=== PATIENT | female | born 1960 | race Caucasian/White ===

== ENCOUNTER → 2019-10-21 14:34 | Outpatient (BNVA) | payer SELFPAY | PROVIDERS: Visit Provider Nurse Practitioner | DX: M54.9 Dorsalgia, unspecified (principal); E24.9 Cushing's syndrome, unspecified; Z79.891 Long term (current) use of opiate analgesic | CPT/HCPCS: 99213 ==

== ENCOUNTER → 2020-04-18 16:52 | Outpatient (BNVA) | payer SELFPAY | PROVIDERS: PCP Nurse Practitioner Family; Visit Provider Nurse Practitioner Family | DX: E11.65 Type 2 diabetes mellitus with hyperglycemia (principal) | CPT/HCPCS: 80053; 80061; 83036; 85025 ==

== ENCOUNTER → 2020-04-27 12:55 | Outpatient (BNVA) | payer SELFPAY | PROVIDERS: PCP Nurse Practitioner Family; Visit Provider Anesthesiology | DX: M54.41 Lumbago with sciatica, right side (principal); M54.42 Lumbago with sciatica, left side; Z79.891 Long term (current) use of opiate analgesic | CPT/HCPCS: 99213; 99214 ==

== ENCOUNTER → 2020-07-25 12:53 | Outpatient (BNVA) | payer SELFPAY | PROVIDERS: PCP Nurse Practitioner Family; Visit Provider Anesthesiology | DX: M54.42 Lumbago with sciatica, left side (principal); M54.41 Lumbago with sciatica, right side; Z79.891 Long term (current) use of opiate analgesic | CPT/HCPCS: 99212; 99214 ==

== ENCOUNTER → 2020-10-19 13:44 | Outpatient (BNVA) | payer SELFPAY | PROVIDERS: PCP Nurse Practitioner Family; Visit Provider Anesthesiology | DX: G89.29 Other chronic pain (principal); M54.5 Low back pain; Z79.891 Long term (current) use of opiate analgesic | CPT/HCPCS: 99213 ==

== ENCOUNTER → 2020-11-05 15:37 | Outpatient (BNVA) | payer SELFPAY | PROVIDERS: PCP Nurse Practitioner Family; Visit Provider Nurse Practitioner Family | DX: E11.65 Type 2 diabetes mellitus with hyperglycemia (principal); I10 Essential (primary) hypertension | CPT/HCPCS: 80053; 80061; 83036; 85025 ==

== ENCOUNTER → 2021-01-11 13:33 | Outpatient (BNVA) | payer SELFPAY | PROVIDERS: PCP Nurse Practitioner Family; Visit Provider Nurse Practitioner | DX: G89.29 Other chronic pain (principal); M54.5 Low back pain; G47.01 Insomnia due to medical condition; E24.9 Cushing's syndrome, unspecified; Z98.890 Other specified postprocedural states; Z85.820 Personal history of malignant melanoma of skin; Z79.891 Long term (current) use of opiate analgesic | CPT/HCPCS: 99213; 99214 ==

== ENCOUNTER → 2021-04-16 13:46 | Outpatient (BNVA) | payer SELFPAY | PROVIDERS: PCP Nurse Practitioner Family; Visit Provider Anesthesiology | DX: G89.29 Other chronic pain (principal); M54.5 Low back pain; Z79.891 Long term (current) use of opiate analgesic | CPT/HCPCS: 99213 ==

== ENCOUNTER → 2021-05-13 16:09 | Outpatient (BNVA) | payer SELFPAY | PROVIDERS: PCP Nurse Practitioner Family; Visit Provider Nurse Practitioner Family | DX: E11.65 Type 2 diabetes mellitus with hyperglycemia (principal); I10 Essential (primary) hypertension | CPT/HCPCS: 80053; 80061; 83036; 85025 ==

== ENCOUNTER → 2021-07-24 14:19 | Outpatient (BNVA) | payer SELFPAY | PROVIDERS: PCP Nurse Practitioner Family; Visit Provider Anesthesiology | DX: G89.29 Other chronic pain (principal); M54.50 Low back pain, unspecified; Z79.891 Long term (current) use of opiate analgesic | CPT/HCPCS: 99213 ==

== ENCOUNTER → 2021-12-16 17:10 | Outpatient (BNVA) | payer SELFPAY | PROVIDERS: PCP Nurse Practitioner Family; Visit Provider Nurse Practitioner Family | DX: E11.65 Type 2 diabetes mellitus with hyperglycemia (principal); I10 Essential (primary) hypertension; G89.29 Other chronic pain | CPT/HCPCS: 80053; 80061; 83036; 85025 ==

== ENCOUNTER → 2022-04-01 14:29 | Outpatient (BNVA) | payer SELFPAY | PROVIDERS: PCP Nurse Practitioner Family; Visit Provider Family Medicine | DX: Z79.891 Long term (current) use of opiate analgesic (principal) | CPT/HCPCS: 80307 ==

== ENCOUNTER 2023-03-18 21:00 | Inpatient (IN) | payer MEDICAID, SELFPAY ==
[2023-03-18 21:12] VITALS: BP 164/107; PULSE 112; RESP 20; TEMP 36.6; O2SAT 98; BMI 38.2
--- NOTE | 2023-03-18 21:14 | W.ED.BACK ---
HPI - Back Pain/Injury General: Chief Complaint: Back Pain/Injury Stated Complaint: Tail Bone Pain Time Seen by Provider: 03/18/23 21:02 History of Present Illness: Ms. Ribera is a 62-year-old lady with complex past medical history presented the emergency department for back pain and generalized worsening. She reports a complex history of back injury and previously followed with pain management however has not reestablished with a pain management physician retired. She essentially has been toughing it out with increasing pain. She notes bilateral radiation of her pain and lower extremity hyperalgia. She feels generally unwell possibly has a urine infection. She notes dry mouth and generalized weakness. Course is worsened. Intensity is moderate to severe. No other specific changes in health, exacerbating, or alleviating factors identified. Severity: moderate Exacerbating factors: movement Associated symptoms: Reports dysuria, nausea, weakness and other Review of Systems General: Reports: 10 or more systems reviewed and unremarkable except in HPI and below GI: Reports: nausea : Reports: dysuria PFSH ED PFSH: Medical History (Updated 03/22/23 @ 00:02 by ANNIKA Lozoya) Chronic low back pain [place] syndrome Diabetes mellitus Encounter for long-term opiate analgesic use GERD (gastroesophageal reflux disease) Hx of Sia disease Hyperglycemia Hyperkalemia Hyperlipidemia Hypertension Insomnia due to medical condition Low back pain of over 3 months duration Noncompliance Opioid contract exists Pseudohyponatremia Psychiatric care Radiculopathy due to lumbar intervertebral disc disorder Uncontrolled type 2 diabetes mellitus UTI (urinary tract infection) Vitamin B12 deficiency Weakness of lower extremity Surgical History (Updated 03/19/23 @ 01:55 by Ashvin Todd MD) H/O melanoma excision LLE - 2015 Hx of eye surgery right eye age 5 Hx of hysterectomy Family History Father Cancer Heart disease mother Sister Suicide Son Autism Social History (Updated 03/19/23 @ 01:56 by Ashvin Todd MD) Smoking and tobacco status: never smoked Second hand smoke exposure: No Alcohol intake: never Substance/Drug Use: never Caregiver/support person: Yes Lives independently: Yes Household members: children Housing: Apartment Marital status: Current occupational status: unemployed Current gender identity: Female Physical Exam Const: COMMON NORMALS: alert GENERAL APPEARANCE: cooperative and well developed HENMT: COMMON NORMALS: normocephalic and atraumatic HEAD & SCALP: normocephalic and atraumatic Eye: COMMON NORMALS: conjunctivae normal CONJUNCTIVA: Yes conjunctivae normal SCLERA: sclerae normal Neck/C-Spine: COMMON NORMALS: supple GENERAL: Yes trachea midline Resp: COMMON NORMALS: normal respiratory effort EFFORT & INSPECTION: Yes able to speak in complete sentences Cardio: COMMON NORMALS: regular rhythm RATE: tachycardic RHYTHM: regular rhythm GI: COMMON NORMALS: Soft to palpation PALPATION: Yes Soft to palpation and No Tenderness to palpation present (GI) Back/Pelvis: OTHER: Generalized low back pain to palpation. Extremity: GENERAL: Yes normal exam except as noted and No edema Neuro: COMMON NORMALS: moves all extremities SENSORIUM/ORIENTATION: Yes alert and No Orientation impaired Psych: COMMON NORMALS: mental status grossly normal and Normal thought process present THOUGHT PROCESS: Normal thought process present Course Vital Signs: Vital signs: Vital Signs Temperature 98.1 F 03/21/23 07:44 Pulse Rate 93 03/21/23 07:44 Respiratory Rate 16 03/21/23 07:44 Blood Pressure 145/93 03/21/23 07:44 Pulse Oximetry 97 03/21/23 07:44 Oxygen Delivery Me thod Room Air 03/21/23 07:44 MDM - Back Pain/Injury Medical Decision Making 62-year-old lady presenting with back pain and generalized illness. Exam as above. Nontoxic. Labs with mild leukocytosis, normal hemoglobin. Metabolic panel with hyponatremia and hyperglycemia without clear evidence of DKA. Possible mild UTI. CT demonstrates multilevel degenerative changes though no acute fracture. During ED course patient treated with orders for fluids, antibiotics, potassium, magnesium, insulin, analgesia. The results of ED evaluation were discussed with the patient including plan for admission due to requirement for level of care not available if discharged to prevent significant worsening/deterioration. Patient agreeable with plan. Discussed with hospitalist service who was agreeable to admit patient. Medical Records I reviewed the patient's medical records. Labs I reviewed the patient's lab results. 03/21/23 01:44 03/21/23 01:44 Radiology Impressions Lumbar Spine CT 03/18/23 21:58 IMPRESSION: 1. Mild multilevel degenerative disc and joint disease as detailed level by level above, worse at L4-L5 as outlined. 2. Mild perinephric fat stranding. 3. Vascular atherosclerosis 4. Additional miscellaneous findings as outlined above.. Lumbar Spine MRI 03/19/23 00:47 IMPRESSION: 1. Multilevel facet joint arthritis and disc disease. No high-grade central stenosis. 2. L4-5: Moderate central with bilateral subarticular recess stenosis. Mild disc encroachment contacting the traversing L5 nerve roots. 3. Mild LEFT foraminal narrowing at L1-2 and bilateral at L3-4. Laboratory Results WBC 12.2 10^3/uL (4.0-10.0) H 03/18/23 21:54 RBC 4.44 10^6/uL (4.1-5.3) 03/18/23 21:54 Hgb 13.0 g/dL (11.5-15.3) 03/18/23 21:54 Hct 39.0 % (37.0-47.0) 03/18/23 21:54 MCV 87.8 fl (81-99) 03/18/23 21:54 MCH 29.3 pg (28.0-34.0) 03/18/23 21:54 MCHC 33.3 g/dL (30.0-36.0) 03/18/23 21:54 RDW 11.9 % (12.1-15.1) L 03/18/23 21:54 Plt Count 448 10^3/cmm (130-400) H 03/18/23 21:54 MPV 9.8 fL (7.4-10.4) 03/18/23 21:54 Neut % (Auto) 76.2 % 03/18/23 21:54 Lymph % (Auto) 14.9 % 03/18/23 21:54 Starke % (Auto) 7.4 % 03/18/23 21:54 Eos % (Auto) 0.1 % 03/18/23 21:54 Baso % (Auto) 0.2 % 03/18/23 21:54 Neut # (Auto) 9.26 10^3/uL (1.8-7.7) H 03/18/23 21:54 Lymph # (Auto) 1.8 10^3/uL (0.8-4.8) 03/18/23 21:54 Starke # (Auto) 0.9 10^3/uL (0.2-0.9) 03/18/23 21:54 Eos # (Auto) 0.0 10^3/uL (0.0-0.8) 03/18/23 21:54 Baso # (Auto) 0.0 10^3/uL (0.0-0.1) 03/18/23 21:54 Nucleated RBC % (auto) 0 % 03/18/23 21:54 Nucleated RBCs # 0.0 /100WBC 03/18/23 21:54 Sodium 134 mmol/L (136-145) L 03/19/23 02:00 Potassium 4.5 mmol/L (3.5-5.1) 03/19/23 02:00 Chloride 94 mmol/L (98-107) L 03/19/23 02:00 Carbon Dioxide 25 mmol/L (22-29) 03/19/23 02:00 Anion Gap 19.5 (5-19) H 03/19/23 02:00 BUN 20 mg/dL (8-23) 03/19/23 02:00 Creatinine 0.6 mg/dL (0.5-0.9) 03/19/23 02:00 GFR Calculation 101.3 mL/min (90-130) 03/19/23 02:00 Glucose 468 mg/dL (65-115) H 03/19/23 02:00 POC Glucose 368 mg/dL (70-110) H 03/19/23 03:40 Estimat Average Glucose 344 03/18/23 21:54 Hemoglobin A1c 13.6 % (4.0-6.0) H 03/18/23 21:54 Calculated Osmolality 301 mOsm/kg (285-295) H 03/19/23 02:00 Calcium 9.8 mg/dL (8.5-10.5) 03/19/23 02:00 Iron 34 ug/dL (37-145) L 03/18/23 21:54 TIBC 200 mcg/dl 03/18/23 21:54 % Saturation 17.0 % (20-50) L 03/18/23 21:54 Unsat Iron Binding 166 ug/dL (112-347) 03/18/23 21:54 Total Bilirubin 0.3 mg/dL (0.15-1.2) 03/18/23 21:54 AST 11 U/L (0-32) 03/18/23 21:54 ALT 16 U/L (0-33) 03/18/23 21:54 Alkaline Phosphatase 148 U/L (35-105) H 03/18/23 21:54 Total Protein 7.5 g/dL (6.6-8.7) 03/18/23 21:54 Albumin 3.5 g/dL (3.5-5.2) 03/18/23 21:54 Globulin 4.0 g/dL (1.3-4.6) 03/18/23 21:54 Triglycerides 341 mg/dL (0-150) H 03/18/23 21:54 Cholesterol 249 mg/dL (0-200) H 03/18/23 21:54 LDL Cholesterol, Calc 142 mg/dL (50-129) H 03/18/23 21:54 Total VLDL Cholesterol 68 mg/dL (0-30) H 03/18/23 21:54 HDL Cholesterol 39 mg/dL (60-100) L 03/18/23 21:54 Cholesterol/HDL Ratio 6.38 mg/dL (0.0-4.40) H 03/18/23 21:54 Vitamin B12 150 pg/mL (232-1245) L 03/18/23 21:54 Folate 12.5 ng/mL (4.8-37.3) 03/18/23 21:54 Procalcitonin 0.68 ng/mL (0-0.5) H 03/18/23 21:54 TSH 0.75 uIU/mL (0.27-4.20) 03/18/23 21:54 Random Cortisol 22.96 ug/dL (2.47-19.5) H 03/18/23 21:54 Urine Color Light yellow (Yellow) 03/18/23 21:45 Urine Appearance Sl hazy (CLEAR) A 03/18/23 21:45 Urine pH 5 (5-7) 03/18/23 21:45 Ur Specific [place] 1.001 (1.005-1.030) L 03/18/23 21:45 Urine Protein Neg (Negative) 03/18/23 21:45 Urine Glucose (UA) 4+ (Normal) H 03/18/23 21:45 Urine Ketones 1+ (Negative) H 03/18/23 21:45 Urine Blood Neg (Negative) 03/18/23 21:45 Urine Nitrate Negative (Negative) 03/18/23 21:45 Urine Bilirubin Neg (Negative) 03/18/23 21:45 Urine Urobilinogen Neg mg/dL (Negative) 03/18/23 21:45 Ur Leukocyte Esterase Negative (Negative) 03/18/23 21:45 Urine RBC 0-4 /hpf (0-2) H 03/18/23 21:45 Urine WBC 5-10 /hpf (0-5) H 03/18/23 21:45 Ur Squamous Epith Cells None /hpf (0-5) 03/18/23 21:45 Amorphous Sediment Not Reportable 03/18/23 21:45 Urine Bacteria 2+ /hpf (NONE) H 03/18/23 21:45 Urine Opiates Screen Negative ng/mL (Negative) 03/18/23 21:47 Ur Barbiturates Screen Negative ng/mL (Negative) 03/18/23 21:47 Ur Phencyclidine Scrn Negative ng/mL (Negative) 03/18/23 21:47 Ur Amphetamines Screen Negative ng/mL (Negative) 03/18/23 21:47 U Benzodiazepines Scrn Negative ng/mL (Negative) 03/18/23 21:47 Urine Cocaine Screen Negative ng/mL (Negative) 03/18/23 21:47 U Marijuana (THC) Screen Negative ng/mL (Negative) 03/18/23 21:47 Serum Ketones Negative (Negative) 03/18/23 21:54 Discharge Plan Discharge Patient Disposition: Admitted As Inpatient Admit Provider: Ashvin Todd Clinical Impression: Hyperglycemia, UTI (urinary tract infection) Condition: Stable Discharge Diet: Diabetic Discharge Activity: Use walker/crutches as instructed Coding Level of Care Code ED Microfiche Duplicator for Joshua De León
--- NOTE | 2023-03-18 21:58 | CTR_ITS ---
PROCEDURE INFORMATION: Exam: CT Lumbar Spine Without Contrast Exam date and time: 03/18/2023 10:16 PM Age: 62 years old Clinical indication: Low back pain; Additional info: Lower back pain, non traumatic TECHNIQUE: Imaging protocol: Computed tomography of the lumbar spine without contrast. Radiation optimization: All CT scans at this facility use at least one of these dose optimization techniques: automated exposure control; mA and/or kV adjustment per patient size (includes targeted exams where dose is matched to clinical indication); or iterative reconstruction. REPORTING DATA: Count of CT and Cardiac NM exams in prior 12 months: This patient has received 0 known CTs and 0 known cardiac nuclear medicine studies in the 12 months prior to the current study. COMPARISON: No relevant prior studies available. RADIATION DOSE METRICS: Total DLP (mGy-cm): 1323.52 FINDINGS: Bones/joints: No acute fracture. Normal alignment. No significant neural foraminal narrowing. There are degenerative changes of the SI joints. Multilevel degenerative disc and joint disease as follows: T12-L1: Decreased disc space height and vacuum disc phenomenon. Minimal disc osteophyte complex. No high-grade spinal canal stenosis. Mild facet arthropathy. No high-grade neural foramina stenosis. L1-L2: The spinal canal and neural foramina are patent. L2-L3: Minimal disc bulge. Minimal hypertrophy of the ligamentum flavum. Minimal facet arthropathy. The spinal canal and neural foramina are patent. L4-L5: Diffuse disc bulge. Mild hypertrophy of the ligamentum flavum. Hypertrophic facet arthropathy, worse on the left. Minimal posterior epidural fat. Mild overall spinal canal stenosis. No high-grade spinal canal stenosis. Mild bilateral neural foraminal stenosis. L5-S1: Mild disc bulge. No high-grade spinal canal stenosis. Mild bilateral facet arthropathy. Suspected minimal neural foraminal narrowing. No high-grade neural foraminal stenosis. Pancreas: Suggestion of minimal atrophic changes of the pancreatic head. Adrenal glands: Minimal irregularity of the left adrenal gland. Vasculature: Atherosclerotic calcifications of the abdominal aorta and its branches. Soft tissues: Mild fat stranding adjacent to the kidneys. Findings are nonspecific. Evaluation with renal ultrasound may be considered, if clinically warranted. CT/CT lumbar spine wo con* [id number] IMPRESSION: 1. Mild multilevel degenerative disc and joint disease as detailed level by level above, worse at L4-L5 as outlined. 2. Mild perinephric fat stranding. 3. Vascular atherosclerosis 4. Additional miscellaneous findings as outlined above..
[2023-03-18] MEDS: sodium chloride 0.9% 500 ML IV (22:05)
[2023-03-18 22:11] LABS: Add Urine Microscopic? YES; Bilirubin Urine Neg (Negative); Blood Urine Neg (Negative); Glucose Urine UA 4+ (Normal); Ketones Urine 1+ (Negative); Leukocyte Esterase Urine Negative (Negative); Nitrate Urine Negative (Negative); Protein Urine Neg (Negative); Specific Gravity, Urine 1.001 (1.005-1.030); Urine Appearance SL Hazy (CLEAR); Urine Color Light yellow (Yellow); Urobilinogen Urine Neg (Negative); pH Urine 5 (5-7)
[2023-03-18 22:12] LABS: Add Urine Culture? No; Bacteria Urine 2+ /hpf; RBC Urine 0-4 /hpf (0-2)
[2023-03-18 22:14] LABS: Basophils % 0.2 %; Eosinophils % 0.1 %; Lymphocytes # 1.8 10^3/uL (0.8-4.8); Lymphocytes % 14.9 %; Mean Corpuscular HGB Conc 33.3 g/dL (30.0-36.0); Mean Corpuscular Hemoglobin 29.3 pg (28.0-34.0); Mean Corpuscular Volume 87.8 fl (81-99); Mean Platelet Volume 9.8 fL (7.4-10.4); Monocytes # 0.9 10^3/uL (0.2-0.9); Monocytes % 7.4 %; Neutrophils # 9.26 10^3/uL (1.8-7.7); Neutrophils % 76.2 %; Nucleated Red Blood Cells % 0 %; Platelet Count 448 10^3/cmm (130-400); Red Blood Count 4.44 10^6/uL (4.1-5.3); Red Cell Distribution Width 11.9 % (12.1-15.1); White Blood Count 12.2 10^3/uL (4.0-10.0)
[2023-03-18] MEDS: morphine 4 mg/mL SDV 1 mL IVP (22:33)
[2023-03-18 22:41] LABS: Alanine Aminotransferase 16 U/L (0-33); Albumin Level 3.5 g/dL (3.5-5.2); Alkaline Phosphatase 148 U/L (35-105); Anion Gap 18.2 (5-19); Aspartate Amino Transferase 11 U/L (0-32); Blood Urea Nitrogen 24 mg/dL (8-23); Calcium 10.3 mg/dL (8.5-10.5); Carbon Dioxide 26 mmol/L (22-29); Chloride 85 mmol/L (98-107); Glomerular Filtration Rate 72.7 mL/min (90-130); Potassium 5.2 mmol/L (3.5-5.1); Sodium 124 mmol/L (136-145); Total Bilirubin 0.3 mg/dL (0.15-1.2); Total Protein 7.5 g/dL (6.6-8.7)
[2023-03-18 23:02] LABS: Osmolality Calculated 311 mOsm/kg (285-295)
[2023-03-18 23:03] LABS: Glucose 976 mg/dL (65-115)
[2023-03-18] MEDS: sodium chloride 0.9% 1,000 ML 999 ML IV ×2 (23:15→23:56)
[2023-03-18 23:16] LABS: Thyroid Stimulating Hormone 0.75 uIU/mL (0.27-4.20)
[2023-03-18] MEDS: cefTRIAXone 1,000 MG in sodium chloride 0.9% (plus) 50 ML 100 MG IV (23:16)
[2023-03-18 23:27] LABS: Ketone (Acetest) Serum Negative (Negative)
[2023-03-18 23:30] VITALS: BP 193/141; PULSE 101; O2SAT 99
[2023-03-18] MEDS: insulin lispro 100 unit/1 mL 10 UNIT SUBCUT (23:59)
[2023-03-19] VITALS (19 sets, daily range): BP systolic 94–185; BP diastolic 51–128; PULSE 64–118; RESP 14–20; TEMP 37.2–37.6; O2SAT 89–99
[2023-03-19] MEDS: insulin regular-human 100 units/1 mL 10 UNIT IVP (00:01)
[2023-03-19 00:04] LABS: Iron 34 ug/dL (37-145); Total Iron Binding Capacity 200 mcg/dl; Unsaturated Iron Binding 166 ug/dL (112-347)
[2023-03-19 00:06] LABS: Amphetamines Screen Urine Negative (Negative); Barbiturates Screen Urine Negative (Negative); Benzodiazepines Screen Urine Negative (Negative); Cocaine Screen Urine Negative (Negative); Opiate Screen Urine Negative (Negative); PCP Screen Urine Negative (Negative); THC Screen Urine Negative (Negative)
[2023-03-19 00:20] LABS: Procalcitonin 0.68 ng/mL (0-0.5); Vitamin B12 150 pg/mL (232-1245)
[2023-03-19] MEDS: sodium chloride 0.9% 500 ML 999 ML IV (00:21)
--- NOTE | 2023-03-19 00:47 | MR_ITS ---
WS: [id number] MRI LUMBAR SPINE NONCONTRAST HISTORY: Lumbar stenosis with radiculopathy COMPARISON: None available. TECHNIQUE: Sagittal and axial multisequence imaging is submitted. Normal lumbar alignment with no compression fractures or marrow edema. Minimal disc desiccation throughout without narrowing. Conus terminates normally at L1-2 disc level. T12-L1: Diffuse mild annular disc bulging. No focal disc protrusion or stenosis. L1-L2: Bilateral facet joint arthritis, small amount of fluid in the facet joints. No significant davon nosis. There is very mild narrowing of the LEFT foramen. L2-L3: Mild bilateral ligamentum flavum and facet arthritis. No stenosis. L3-L4: Mild annular disc bulging with moderate ligamentum flavum and facet arthritis. Mild encroachme nt and narrowing of the subarticular recesses. Minimal narrowing of the foramina. L4-L5: Moderate annular disc bulging with marked ligamentum flavum and facet arthritis. There is disc encroachment into the subarticular recesses and central canal. Moderate central and subarticular rec ess stenosis with encroachment and contact on the traversing L5 nerve roots. Mild foraminal narrowing . L5-S1: Mild annular disc bulge with a very shallow central and RIGHT foraminal disc protrusions. Ther e is very slight disc contacting the S1 nerve roots. No foraminal stenosis. Mild facet arthritis. Paravertebral soft tissues are normal. MR/MR lumbar spine wo con* [id number] IMPRESSION: 1. Multilevel facet joint arthritis and disc disease. No high-grade central st enosis. 2. L4-5: Moderate central with bilateral subarticular recess stenosis. Mild di sc encroachment contacting the traversing L5 nerve roots. 3. Mild LEFT foraminal narrowing at L1-2 and bilateral at L3-4.
[2023-03-19 01:13] LABS: Chol HDL Ratio 6.38 mg/dL (0.0-4.40); Cholesterol 249 mg/dL (0-200); HDL Cholesterol 39 mg/dL (60-100); LDL Cholesterol Calculated 142 mg/dL (50-129); Triglycerides 341 mg/dL (0-150); VLDL Cholestrol Calculation 68 mg/dL (0-30)
[2023-03-19 01:15] LABS: Estmated Average Glucose 344; Hemoglobin A1C 13.6 % (4.0-6.0)
[2023-03-19 01:23] LABS: Cortisol Random 22.96 ug/dL (2.47-19.5)
[2023-03-19 01:33] LABS: Folate Level 12.5 ng/mL (4.8-37.3)
--- NOTE | 2023-03-19 01:50 | P.HP_ITS ---
Providers/Chief Complaint Chief Complaint: Tail Bone Pain History of Present Illness Yuri Ribera is a 62 year old female with possible history of Sia syndrome in the past, type 2 diabetes mellitus, hypertension, noncompliance, chronic back pain who has not taken any medication since March of last year was brought to the hospital today because of worsening weakness in bilateral lower limbs, back pain, pain radiating down the right leg for last 1 week. Patient seen in the ER sitting up in wheelchair with family members at bedside. Patient states she has not taken her medications since last year because she ran out of her insurance and did not have money to follow-up with physicians or medications. She has been having worsening pain so she came to the ER. She states usually she is not able to even get up from wheelchair and go to her bathroom because of weakness in her legs and pain in her right leg. Complaining of severe pain in the back not relieved by any motion. States pain get worse on minimal movement. Complaining of nausea, difficulty and painful swallowing. States nausea and difficulty swallowing started last week. Patient has not taken any of her medications for type 2 diabetes mellitus and hypertension for many months. In the ER, patient was given 500 cc of IV fluids and 1 more liter was ordered. Patient was to be started on insulin drip for blood sugar of more than 900 but did not have any anion gap. After discussion insulin drip was withheld and patient was given complete septic bolus with advised to repeat blood sugars and BMP post finishing of 3.2 L of IV fluids to decide about disposition from ER of ICU versus MedSurg floor. Patient was also given 1 dose of IV ceftriaxone. Patient was advised to be given 10 units of IV regular insulin and tenets of subcu lispro Review of Systems General: Reports: 10 or more systems reviewed and unremarkable except in HPI and below Const: Denies: fever(s), chills, body aches, change in appetite, change in weight, malaise, night sweats, diaphoresis, change in sleep pattern, daytime sleepiness or snoring Eyes: Denies: change in vision, blurry vision, photophobia, eye discomfort or eye discharge ENMT: Denies: throat pain, enlarged tonsils, hoarseness, mouth pain, oral sores, dry mouth, tinnitus, nasal congestion or post nasal drip Card: Denies: chest pain, palpitations, irregular heart rhythm, edema, swelling of feet/ankles, lightheadedness, syncope, pre-syncope, dyspnea on exertion, orthopnea, leg pain with exertion or acrocyanosis Resp: Denies: dyspnea, productive cough, non-productive cough, wheezing, stridor, pain on inspiration, change in phlegm color, hemoptysis or chest congestion GI: Denies: abdominal pain, nausea, vomiting, hematemesis, coffee ground emesis, dysphagia, heartburn, diarrhea, constipation, bloating, GI cramping, change in bowel habits, pain on defecation, hematochezia or melena : Denies: flank pain, dysuria, urinary frequency, urinary urgency, urinary hesitancy, nocturia or hematuria Musc: Denies: neck pain, back pain, extremity pain, joint pain, joint swelling, joint redness, joint stiffness or limited range of motion Neuro: Denies: headache(s), numbness in extremities, weakness in extremities, sensory changes, lack of coordination, difficulty walking, frequent falls, dizziness, vertigo, confusion, Slurred speech present, difficulty communicating thoughts or seizure-like activity Psych: Denies: anxiety, depression, mood swings, panic attacks, hopelessness or irritability Endo: Denies: polyuria, polydipsia, tired all the time, cold intolerance, excessive sweating, flushing or heat intolerance Donovan/Lymph: Denies: easy bruising or easy bleeding All/Imm: Denies: tongue swelling, facial swelling or acute wheezing Medications/Allergies Home Medications Medication Instructions Recorded Confirmed Last Taken Type sennosides 8.6 mg-docusate sodium 3 tab-cap PO .HS 10/28/19 04/11/22 Unknown History 50 mg tablet (Laxative Stool Softener With Senna) acetaminophen 500 mg tablet 500 mg PO ONCE PRN 10/04/21 04/11/22 Unknown History (Tylenol Extra Strength) atenolol 100 mg tablet See Rx Instructions .Route 02/17/22 04/11/22 Unknown Rx .COMPLEX #30 tabs triazolam 0.25 mg tablet 0.25 mg PO .QHS #30 tabs 03/18/22 04/11/22 Unknown Rx tramadol 50 mg tablet 50 mg PO .5x day PRN pain 30 days 04/01/22 04/11/22 Unknown Rx #150 tabs amlodipine 5 mg tablet See Rx Instructions .Route 04/24/22 Unknown Rx .COMPLEX #60 tabs Allergies Allergy/AdvReac Type Severity Reaction Status Date / Time ampicillin Allergy unknown Verified 04/11/22 14:36 buspirone Allergy Unknown Verified 04/11/22 14:36 epinephrine Allergy has 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 pregabalin Allergy Unknown Verified 04/11/22 14:36 PFSH Acute PFSH: Medical History (Updated 03/19/23 @ 01:55 by Ashvin Todd MD) Chronic low back pain Diabetes mellitus Encounter for long-term opiate analgesic use GERD (gastroesophageal reflux disease) Hx of [place] disease Hypertension Insomnia due to medical condition Low back pain of over 3 months duration Opioid contract exists Psychiatric care Vitamin B12 deficiency Surgical History (Updated 03/19/23 @ 01:55 by Ashvin Todd MD) H/O melanoma excision LL - 2015 Hx of eye surgery right eye age 5 Hx of hysterectomy Family History Father Cancer Heart disease mother Sister Suicide Son Autism Social History (Updated 03/19/23 @ 01:56 by Ashvin Todd MD) Smoking and tobacco status: never smoked Second hand smoke exposure: No Alcohol intake: never Substance/Drug Use: never Caregiver/support person: Yes Lives independently: Yes Household members: children Housing: Apartment Marital status: Current occupational status: unemployed Current gender identity: Female Vitals/I&O/Wt Last Vital Signs Temp 98 F 03/18/23 21:12 Pulse 112 H 03/18/23 21:12 Resp 20 H 03/18/23 21:12 BP 164/107 03/18/23 21:12 Pulse Ox 98 03/18/23 21:12 03/18/23 03/18/23 03/19/23 14:59 22:59 06:59 Intake Total 1550 / 1550 Balance 1550 / 1550 Weight last 48 hrs Weight 104.326 kg Physical Exam Narrative: General: No acute distress, AO x3, disheveled, chronically sick appearing, sitting in wheelchair, cooper facies HEENT: PERRLA, pupils bilaterally equal and reactive Chest: Normal vesicular breath sounds, no added sounds, equal good air entry bilaterally CVS: S1-S2 regular, no murmurs, no tachycardia, no gallops, no rubs Abdomen: Soft, nontender, no organomegaly, bowel sounds present Neuro: No focal deficits, no facial deformity, AO x3, power 5/5 in all limbs Data 03/18/23 21:54 03/18/23 21:54 Micro: Microbiology 03/19/23 00:04 Blood Culture - Preliminary Blood SPECIMEN COLLECTED A&P Assessment and plan (1) Hyperglycemia: In setting of noncompliance and uncontrolled type 2 diabetes mellitus. No anion gap. Ketones negative. DKA ruled out. Patient not in HHS. Finished 3 L of IV fluid bolus. Will repeat BMP and fingerstick blood glucose post finishing of bolus. Plan for insulin sliding scale with high-dose protocol versus insulin drip as per blood sugars post fluid bolus. Monitor potassium. (2) Uncontrolled type 2 diabetes mellitus: Check A1c. Patient will most likely need to be discharged on insulin lispro and Lantus along with supplies for regular blood sugar check and possible follow-up with [facility] de cuisine. (3) Pseudohyponatremia: Corrected blood sugar of 134. Pseudohyponatremia in setting of severe hyperglycemia. Monitor BMP daily. (4) Hyperkalemia: Most likely in setting of severe hyperglycemia. Hold off on medications for now. Monitor BMP after fluid bolus. Will replete as needed. (5) Chronic low back pain: Most likely in setting of multilevel degenerative disc disorder. With radiculopathy down to right lower limb. No foot drop PT. MRI of lumbar spine. Patient most likely will need surgical correction but at this point given uncontrolled type 2 diabetes mellitus she is at a higher risk of complications. Will consult orthopedics in-house versus outpatient as per MRI results. (6) Radiculopathy due to lumbar intervertebral disc disorder: Most likely in setting of multi level degenerative disorder. Cannot rule out in setting of vitamin B12 deficiency. Check B12, folate levels (7) Weakness of lower extremity: (8) Noncompliance: Case management consultation (9) Hyperlipidemia: Check lipid panel. Start on statins accordingly (10) [place] syndrome: As per patient possible history. Has never followed up with [facility] de [facility]. Check cortisol level, ACTH. (11) Hypertension: Goal blood pressure less than 140/90 mmHg. Restart home medication of amlodipine 10 mg, atenolol 100 mg. Uptitrate as per goal blood pressures. Qualifiers: Hypertension type: essential hypertension Qualified Code(s): I10 - Essential (primary) hypertension Plan CODE STATUS: Full code Cardiac carb consistent diet. Protonix for PUD prophylaxis Lovenox for DVT prophylaxis Physical therapy. Discussed in detail with the patient that unfortunately she is not safe to have any kind of back surgery right now because of uncontrolled diabetes mellitus. Discussed that most likely patient would need strict blood sugar control along with compliance to medication for type 2 diabetes mellitus and hypertension. Most likely she will need to follow-up with [employer] de cuisine and orthopedics as an outpatient. Patient verbalized understanding and is agreeable to do the same. Patient requesting to speak with case management regarding help with insurance Attestations Medical Necessity Statement*: Admission for more than 2 midnights for management of uncontrolled type 2 diabetes mellitus with severe hyperglycemia, chronic back pain with radiculopathy Diagnoses Hyperglycemia R73.9 Uncontrolled type 2 diabetes mellitus Pseudohyponatremia R79.89 Hyperkalemia E87.5 Chronic low back pain M54.5; G89.29 Radiculopathy due to lumbar intervertebral disc disorder M51.16 Weakness of lower extremity R29.898 Noncompliance Z91.199 Hyperlipidemia E78.5 Sia syndrome E24.9 Hypertension I10 Hypertension type: essential hypertension
[2023-03-19 02:09] LABS: Glucose Point of Care > 600 mg/dL (70-110)
[2023-03-19 02:09] LABS: Glucose Point of Care > 600 mg/dL (70-110)
[2023-03-19 02:09] LABS: Glucose Point of Care 452 mg/dL (70-110)
[2023-03-19 02:24] LABS: Blood Urea Nitrogen 20 mg/dL (8-23); Calcium 9.8 mg/dL (8.5-10.5); Carbon Dioxide 25 mmol/L (22-29); Chloride 94 mmol/L (98-107); Glomerular Filtration Rate 101.3 mL/min (90-130); Glucose 468 mg/dL (65-115); Osmolality Calculated 301 mOsm/kg (285-295); Sodium 134 mmol/L (136-145)
[2023-03-19 02:25] LABS: Anion Gap 19.5 (5-19); Potassium 4.5 mmol/L (3.5-5.1)
[2023-03-19 02:41] LABS: Glucose Point of Care 412 mg/dL (70-110)
[2023-03-19] MEDS: insulin lispro 100 unit/1 mL 10 UNIT SUBCUT ×2 (02:47→11:11)
[2023-03-19] MEDS: amlodipine 10 mg Tablet PO (02:50)
[2023-03-19] MEDS: sodium chloride 0.9% 1,000 ML 100 ML IV ×3 (02:55→21:15)
[2023-03-19] MEDS: insulin glargine 100 units/1 mL 20 UNIT SUBCUT (03:01)
[2023-03-19 03:43] LABS: Glucose Point of Care 368 mg/dL (70-110)
[2023-03-19] MEDS: pantoprazole 40 mg SDV IVP (04:15)
[2023-03-19] MEDS: enoxaparin 40 mg/0.4 mL Syringe SUBCUT (04:15)
[2023-03-19] MEDS: morphine 4 mg/mL SDV 1 mL 2 MG IVP ×2 (04:15→23:03)
--- NOTE | 2023-03-19 05:08 | PC.NURSE ---
Patient reports not taking any medications for over 1 year except for Tylenol OTC.
[2023-03-19 06:11] LABS: Glucose Point of Care 301 mg/dL (70-110)
[2023-03-19] MEDS: insulin lispro 100 unit/1 mL SUBCUT ×5 (07:30→21:12)
[2023-03-19 08:59] LABS: Basophils % 0.2 %; Eosinophils % 0.2 %; Hematocrit 36.6 % (37.0-47.0); Hemoglobin 11.9 g/dL (11.5-15.3); Lymphocytes # 2.4 10^3/uL (0.8-4.8); Lymphocytes % 17.5 %; Mean Corpuscular HGB Conc 32.5 g/dL (30.0-36.0); Mean Corpuscular Volume 89.3 fl (81-99); Mean Platelet Volume 9.2 fL (7.4-10.4); Monocytes # 0.7 10^3/uL (0.2-0.9); Monocytes % 5.3 %; Neutrophils # 10.34 10^3/uL (1.8-7.7); Neutrophils % 75.6 %; Nucleated Red Blood Cells % 0 %; Platelet Count 411 10^3/cmm (130-400); White Blood Count 13.7 10^3/uL (4.0-10.0)
[2023-03-19 09:19] LABS: Alanine Aminotransferase 12 U/L (0-33); Albumin Level 3.4 g/dL (3.5-5.2); Alkaline Phosphatase 128 U/L (35-105); Anion Gap 14.9 (5-19); Aspartate Amino Transferase 10 U/L (0-32); Blood Urea Nitrogen 15 mg/dL (8-23); Calcium 9.6 mg/dL (8.5-10.5); Carbon Dioxide 28 mmol/L (22-29); Chloride 96 mmol/L (98-107); Globulin 2.9 g/dL (1.3-4.6); Glomerular Filtration Rate 101.3 mL/min (90-130); Glucose 260 mg/dL (65-115); Osmolality Calculated 290 mOsm/kg (285-295); Potassium 3.9 mmol/L (3.5-5.1); Sodium 135 mmol/L (136-145); Total Bilirubin 0.2 mg/dL (0.15-1.2); Total Protein 6.3 g/dL (6.6-8.7)
[2023-03-19] MEDS: atenolol 50 mg Tablet 100 MG PO (09:52)
[2023-03-19] MEDS: ALPRAZolam 0.5 mg Tablet PO (09:52)
[2023-03-19] MEDS: folic acid 1 mg Tablet PO ×2 (09:52→17:38)
[2023-03-19] MEDS: amlodipine 5 mg Tablet 10 MG PO (09:52)
[2023-03-19] MEDS: cyanocobalamin 1,000 mcg/mL SDV 1000 MCG IM (09:53)
[2023-03-19 10:08] LABS: Glucose Point of Care 330 mg/dL (70-110)
--- NOTE | 2023-03-19 10:56 | P.MISC_ITS ---
Miscellaneous Note Note: Reviewed reviewed Patient examined Patient is not complaining of any active complaints Leukocytosis noted Perinephric stranding on CT scan of abdomen Patient not endorsing dysuria Blood glucose this morning 330 given 10 extra units of short acting insulin Awake and alert Does not look fluid overloaded No signs of dehydration or focal deficit S1, S2 sinus tachycardia Abdomen soft No audible stridor or wheezing Currently on room air Plan We have provided documentation and assistance to get some help from 88 to get her insulin at least For now we will manage her sugar with scheduled Premeal insulin and high-dose of Lantus hemoglobin A1c is 13 For perinephric stranding and leukocytosis I will add ceftriaxone and request urine culture Patient l planning to live with her family in [place] Full code DVT prophylaxis on board She also has significant vitamin B12 deficiency
[2023-03-19 12:26] LABS: Glucose Point of Care 253 mg/dL (70-110)
[2023-03-19 16:59] LABS: Glucose Point of Care 213 mg/dL (70-110)
[2023-03-19] MEDS: insulin glargine 100 units/1 mL 25 UNIT SUBCUT (17:37)
[2023-03-19] MEDS: HYDROcodone-acetaminophen 5-325 mg Tablet 1 TAB PO (18:59)
[2023-03-19 20:48] LABS: Glucose Point of Care 188 mg/dL (70-110)
[2023-03-19] MEDS: metoprolol tartrate 25 mg Tablet PO (21:12)
[2023-03-19] MEDS: atorvastatin 40 mg Tablet PO (21:12)
[2023-03-19] MEDS: cefTRIAXone 1,000 MG in sodium chloride 0.9% (plus) 50 ML 100 MG IV (22:33)
[2023-03-20] VITALS (11 sets, daily range): BP systolic 131–163; BP diastolic 65–89; PULSE 69–100; RESP 14–24; TEMP 36.8–37.8; O2SAT 94–98; BMI 34.1
[2023-03-20] MEDS: enoxaparin 40 mg/0.4 mL Syringe SUBCUT (04:22)
[2023-03-20] MEDS: pantoprazole 40 mg SDV IVP (04:22)
[2023-03-20] MEDS: HYDROcodone-acetaminophen 5-325 mg Tablet 1 TAB PO ×2 (04:35→16:09)
[2023-03-20 04:41] LABS: Basophils % 0.3 %; Eosinophils # 0.1 10^3/uL (0.0-0.8); Eosinophils % 1.1 %; Hematocrit 34.7 % (37.0-47.0); Hemoglobin 11.2 g/dL (11.5-15.3); Lymphocytes # 3.4 10^3/uL (0.8-4.8); Lymphocytes % 26.1 %; Mean Corpuscular HGB Conc 32.3 g/dL (30.0-36.0); Mean Corpuscular Hemoglobin 29.1 pg (28.0-34.0); Mean Corpuscular Volume 90.1 fl (81-99); Mean Platelet Volume 9.3 fL (7.4-10.4); Monocytes % 7.7 %; Neutrophils # 8.17 10^3/uL (1.8-7.7); Neutrophils % 63.2 %; Nucleated Red Blood Cells % 0 %; Platelet Count 370 10^3/cmm (130-400); Red Blood Count 3.85 10^6/uL (4.1-5.3); Red Cell Distribution Width 12.1 % (12.1-15.1); White Blood Count 12.9 10^3/uL (4.0-10.0)
[2023-03-20 05:07] LABS: Chol HDL Ratio 5.49 mg/dL (0.0-4.40); Cholesterol 203 mg/dL (0-200); HDL Cholesterol 37 mg/dL (60-100); LDL Cholesterol Calculated 117 mg/dL (50-129); LDL HDL Ratio 3.16 RATIO (0.00-3.22); Triglycerides 246 mg/dL (0-150)
[2023-03-20 05:08] LABS: Anion Gap 12.4 (5-19); Blood Urea Nitrogen 18 mg/dL (8-23); Calcium 9.2 mg/dL (8.5-10.5); Carbon Dioxide 28 mmol/L (22-29); Chloride 98 mmol/L (98-107); Glomerular Filtration Rate 101.3 mL/min (90-130); Glucose 211 mg/dL (65-115); Osmolality Calculated 286 mOsm/kg (285-295); Potassium 4.4 mmol/L (3.5-5.1); Sodium 134 mmol/L (136-145)
[2023-03-20 05:10] LABS: Magnesium 2.2 mg/dL (1.7-2.3)
[2023-03-20 06:30] LABS: Glucose Point of Care 267 mg/dL (70-110)
[2023-03-20] MEDS: cefTRIAXone 1,000 MG in sodium chloride 0.9% (plus) 50 ML 100 MG IV (08:29)
[2023-03-20] MEDS: cyanocobalamin 1,000 mcg/mL SDV 1000 MCG IM (08:29)
[2023-03-20] MEDS: amlodipine 5 mg Tablet 10 MG PO (08:29)
[2023-03-20] MEDS: folic acid 1 mg Tablet PO ×2 (08:29→17:44)
[2023-03-20] MEDS: insulin glargine 100 units/1 mL 25 UNIT SUBCUT ×2 (08:30→17:44)
[2023-03-20] MEDS: insulin lispro 100 unit/1 mL SUBCUT ×7 (08:30→21:21)
[2023-03-20] MEDS: metoprolol tartrate 25 mg Tablet PO ×2 (09:11→21:02)
--- NOTE | 2023-03-20 10:34 | PM.PN ---
Subjective Subjective: Patient this morning is feeling better Work with PT She does have peripheral neuropathy We will touch base with Dr. Marino to see if he has any recommendations after reviewing MRI spine I have finalized her medications for discharge tomorrow She will need vitamin B12 supplementation Vitals/I&O/Wt Last Vital Signs Temp 99.7 F H 03/20/23 07:31 Pulse 85 03/20/23 08:11 Resp 16 03/20/23 08:11 BP 148/86 03/20/23 07:31 Pulse Ox 98 03/20/23 08:11 O2 Del Method Room Air 03/20/23 08:11 03/19/23 03/20/23 03/20/23 22:59 06:59 14:59 Intake Total 1360 / 2591.667 530 / 3121.667 1050 / 1050 Output Total 100 / 300 500 / 800 Balance 1260 / 2291.667 30 / 2321.667 1050 / 1050 Weight last 48 hrs Weight 92.986 kg Weight 104.326 kg Physical Exam Narrative: Nonfocal neuro exam Eating breakfast GCS 15 Currently on room air Lower extremity mild edema Awake and alert S1, S2 Data 03/20/23 04:26 03/20/23 04:26 Micro: Microbiology 03/19/23 02:00 Blood Culture - Preliminary Blood NEGATIVE TO DATE 03/19/23 00:04 Blood Culture - Preliminary Blood NEGATIVE TO DATE 03/19/23 03:35 MRSA Culture - Final Nose A&P Assessment and plan (1) Pseudohyponatremia: (2) Noncompliance: (3) Weakness of lower extremity: (4) Radiculopathy due to lumbar intervertebral disc disorder: (5) Hyperlipidemia: (6) Uncontrolled type 2 diabetes mellitus: (7) Hyperglycemia: (8) UTI (urinary tract infection): Plan Uncontrolled diabetes acute care assistant paperwork has been provided Patient will get Lantus 25 units twice daily regimen along with medium dose sliding scale along metformin GFR is about 100 Low vitamin B12: Supplemented Lower extremity edema with peripheral neuropathy, check BNP and echo Work with PT Perinephric stranding concern for UTI, patient will get cefpodoxime at the time of discharge currently afebrile Low-grade fever noted overnight, continue IV ceftriaxone Back pain with osteoarthritis I will touch with Dr. Marino to see if he has any recommendations for her Not a surgical candidate Full code Plan to discharge tomorrow Continue diabetic diet Discontinue IV fluids DVT prophylaxis on board Spoke with the daughter Attestations Medical Necessity Statement*: Plan to discharge tomorrow Diagnoses Pseudohyponatremia R79.89 Noncompliance Z91.199 Weakness of lower extremity R29.898 Radiculopathy due to lumbar intervertebral disc disorder M51.16 Hyperlipidemia E78.5 Uncontrolled type 2 diabetes mellitus Hyperglycemia R73.9 UTI (urinary tract infection) N39.0
[2023-03-20 11:08] LABS: Glucose Point of Care 316 mg/dL (70-110)
[2023-03-20 11:08] LABS: NT Pro B Type Natriuretic Pept 648 pg/mL (0-125)
--- NOTE | 2023-03-20 12:18 | PM.PN ---
Subjective Subjective: Unable to Eval the Patient today as Dr Marino is on Vacation. If patient Ready for DC will Eval patient on Thursday or Thu of next week. Vitals/I&O/Wt Last Vital Signs Temp 100.1 F H 03/20/23 11:32 Pulse 89 03/20/23 11:32 Resp 24 H 03/20/23 11:32 BP 131/88 03/20/23 11:32 Pulse Ox 94 03/20/23 11:32 O2 Del Method Room Air 03/20/23 11:32 03/19/23 03/20/23 03/20/23 22:59 06:59 14:59 Intake Total 1360 / 2591.667 530 / 3121.667 1530 / 1530 Output Total 100 / 300 500 / 800 500 / 500 Balance 1260 / 2291.667 30 / 2321.667 1030 / 1030 Weight last 48 hrs Weight 205 lb Weight 230 lb Data 03/20/23 04:26 03/20/23 04:26 Micro: Microbiology 03/19/23 02:00 Blood Culture - Preliminary Blood NEGATIVE TO DATE 03/19/23 00:04 Blood Culture - Preliminary Blood NEGATIVE TO DATE 03/19/23 03:35 MRSA Culture - Final Nose Attestations Medical Necessity Statement*: Defer to Medical Team Coding Level of Care Code Acute Code for Chg Fwd Diagnoses
[2023-03-20 16:41] LABS: Glucose Point of Care 216 mg/dL (70-110)
[2023-03-20 20:41] LABS: Glucose Point of Care 231 mg/dL (70-110)
[2023-03-20] MEDS: sennosides 8.6 mg Tablet 17.2 MG PO (21:02)
[2023-03-20] MEDS: atorvastatin 40 mg Tablet PO (21:02)
[2023-03-20] MEDS: morphine 4 mg/mL SDV 1 mL 2 MG IVP (21:18)
[2023-03-21] VITALS: BP 150/81; PULSE 83; RESP 17; TEMP 37.2; O2SAT 92
[2023-03-21] MEDS: HYDROcodone-acetaminophen 5-325 mg Tablet 1 TAB PO (01:48)
[2023-03-21 02:46] LABS: Basophils # 0.1 10^3/uL (0.0-0.1); Basophils % 0.5 %; Eosinophils # 0.2 10^3/uL (0.0-0.8); Eosinophils % 1.4 %; Hematocrit 34.2 % (37.0-47.0); Hemoglobin 11.2 g/dL (11.5-15.3); Lymphocytes # 3.6 10^3/uL (0.8-4.8); Lymphocytes % 33.6 %; Mean Corpuscular HGB Conc 32.7 g/dL (30.0-36.0); Mean Corpuscular Hemoglobin 29.4 pg (28.0-34.0); Mean Corpuscular Volume 89.8 fl (81-99); Mean Platelet Volume 9.5 fL (7.4-10.4); Neutrophils # 5.68 10^3/uL (1.8-7.7); Neutrophils % 52.9 %; Nucleated Red Blood Cells % 0 %; Platelet Count 420 10^3/cmm (130-400); Red Blood Count 3.81 10^6/uL (4.1-5.3); White Blood Count 10.7 10^3/uL (4.0-10.0)
[2023-03-21 03:13] LABS: Anion Gap 12.2 (5-19); Blood Urea Nitrogen 15 mg/dL (8-23); Calcium 9.4 mg/dL (8.5-10.5); Carbon Dioxide 27 mmol/L (22-29); Chloride 99 mmol/L (98-107); Glomerular Filtration Rate 101.3 mL/min (90-130); Glucose 163 mg/dL (65-115); Osmolality Calculated 282 mOsm/kg (285-295); Potassium 4.2 mmol/L (3.5-5.1); Sodium 134 mmol/L (136-145)
[2023-03-21 04:00] VITALS: BP 143/94; PULSE 96; RESP 22; TEMP 36.7; O2SAT 98
[2023-03-21] MEDS: pantoprazole 40 mg SDV IVP (04:36)
[2023-03-21] MEDS: enoxaparin 40 mg/0.4 mL Syringe SUBCUT (04:39)
[2023-03-21 05:29] VITALS: PULSE 98
[2023-03-21 06:30] LABS: Glucose Point of Care 268 mg/dL (70-110)
--- NOTE | 2023-03-21 06:47 | P.DS_ITS ---
Discharge Providers Date of Admission: 03/19/23 03:53 Date of Discharge: March 21, 2023 Attending Provider at Admission: Ashvin Todd MD Attending Provider at Discharge: Dina Rodriguez MD Diagnoses at Discharge Discharge Diagnosis (1) Pseudohyponatremia: Status: Acute (2) Noncompliance: Status: Acute (3) Weakness of lower extremity: Status: Acute (4) Radiculopathy due to lumbar intervertebral disc disorder: Status: Acute (5) Hyperlipidemia: Status: Acute (6) Uncontrolled type 2 diabetes mellitus: Status: Acute (7) Hyperglycemia: Status: Acute (8) UTI (urinary tract infection): Status: Acute Reason for Visit Reason for Visit: Tail Bone Pain Hospital Course Hospital Course 62-year-old female who was admitted for management evaluation of hyperglycemia, severe electrolyte imbalance replenished during hospitalization, hemoglobin A1c is around 13, she was started on Lantus 25 units twice daily along 5 units Premeal and sliding scale, with the help of onsite case manager we were able to provide financial aid administrator paperwork, as per the daughter she is planning to bring her mother to [place], they have already set up their basement to take care of their mother, she has lost insurance has not used any medication at all, at the time of discharge I have given her lisinopril and metoprolol for her hypertension, added cefpodoxime for UTI, she does have lumbar L5 nerve root encroachment due to degenerative disc disease I have consulted Dr. Marino however [place] can see her next week in the clinic outpatient she patient does not have any signs of cauda equina I have added gabapentin low-dose for neuropathic pain Physical Exam Narrative: Patient awake and alert GCS 15 Nonfocal neuro exam S1, S2 Abdomen soft Currently on room air Discharge Data Studies Completed and Pending Completed Studies During Hospitalization Category Date Time Status CT lumbar spine wo con* [id number] Stat Cat Scan 03/18/23 21:58 Completed MR lumbar spine wo con* [id number] Stat MRI 03/19/23 00:47 Completed Pending at discharge Category Date Time Status Adrenocorticotropic Hormone AM LABS Lab 03/19/23 08:40 Received Blood Culture Stat Lab 03/18/23 23:44 Results Urine Culture Routine Lab 03/20/23 16:50 Received CV. echo complete* [id number] Routine Ultrasound 03/20/23 10:36 Ordered Radiology Impressions Lumbar Spine CT 03/18/23 21:58 IMPRESSION: 1. Mild multilevel degenerative disc and joint disease as detailed level by level above, worse at L4-L5 as outlined. 2. Mild perinephric fat stranding. 3. Vascular atherosclerosis 4. Additional miscellaneous findings as outlined above.. Lumbar Spine MRI 03/19/23 00:47 IMPRESSION: 1. Multilevel facet joint arthritis and disc disease. No high-grade central stenosis. 2. L4-5: Moderate central with bilateral subarticular recess stenosis. Mild disc encroachment contacting the traversing L5 nerve roots. 3. Mild LEFT foraminal narrowing at L1-2 and bilateral at L3-4. Laboratory Results WBC 10.7 10^3/uL (4.0-10.0) H 03/21/23 01:44 RBC 3.81 10^6/uL (4.1-5.3) L 03/21/23 01:44 Hgb 11.2 g/dL (11.5-15.3) L 03/21/23 01:44 Hct 34.2 % (37.0-47.0) L 03/21/23 01:44 MCV 89.8 fl (81-99) 03/21/23 01:44 MCH 29.4 pg (28.0-34.0) 03/21/23 01:44 MCHC 32.7 g/dL (30.0-36.0) 03/21/23 01:44 RDW 12.0 % (12.1-15.1) L 03/21/23 01:44 Plt Count 420 10^3/cmm (130-400) H 03/21/23 01:44 MPV 9.5 fL (7.4-10.4) 03/21/23 01:44 Neut % (Auto) 52.9 % 03/21/23 01:44 Lymph % (Auto) 33.6 % 03/21/23 01:44 Emmons % (Auto) 9.0 % 03/21/23 01:44 Eos % (Auto) 1.4 % 03/21/23 01:44 Baso % (Auto) 0.5 % 03/21/23 01:44 Neut # (Auto) 5.68 10^3/uL (1.8-7.7) 03/21/23 01:44 Lymph # (Auto) 3.6 10^3/uL (0.8-4.8) 03/21/23 01:44 Emmons # (Auto) 1.0 10^3/uL (0.2-0.9) H 03/21/23 01:44 Eos # (Auto) 0.2 10^3/uL (0.0-0.8) 03/21/23 01:44 Baso # (Auto) 0.1 10^3/uL (0.0-0.1) 03/21/23 01:44 Nucleated RBC % (auto) 0 % 03/21/23 01:44 Nucleated RBCs # 0.0 /100WBC 03/21/23 01:44 Sodium 134 mmol/L (136-145) L 03/21/23 01:44 Potassium 4.2 mmol/L (3.5-5.1) 03/21/23 01:44 Chloride 99 mmol/L (98-107) 03/21/23 01:44 Carbon Dioxide 27 mmol/L (22-29) 03/21/23 01:44 Anion Gap 12.2 (5-19) 03/21/23 01:44 BUN 15 mg/dL (8-23) 03/21/23 01:44 Creatinine 0.6 mg/dL (0.5-0.9) 03/21/23 01:44 GFR Calculation 101.3 mL/min (90-130) 03/21/23 01:44 Glucose 163 mg/dL (65-115) H 03/21/23 01:44 POC Glucose 268 mg/dL (70-110) H 03/21/23 06:17 Estimat Average Glucose 344 03/18/23 21:54 Hemoglobin A1c 13.6 % (4.0-6.0) H 03/18/23 21:54 Calculated Osmolality 282 mOsm/kg (285-295) L 03/21/23 01:44 Calcium 9.4 mg/dL (8.5-10.5) 03/21/23 01:44 Phosphorus 2.0 mg/dL (2.5-4.5) L 03/20/23 04:26 Magnesium 2.2 mg/dL (1.7-2.3) 03/20/23 04:26 Iron 34 ug/dL (37-145) L 03/18/23 21:54 TIBC 200 mcg/dl 03/18/23 21:54 % Saturation 17.0 % (20-50) L 03/18/23 21:54 Unsat Iron Binding 166 ug/dL (112-347) 03/18/23 21:54 Total Bilirubin 0.2 mg/dL (0.15-1.2) 03/19/23 08:40 AST 10 U/L (0-32) 03/19/23 08:40 ALT 12 U/L (0-33) 03/19/23 08:40 Alkaline Phosphatase 128 U/L (35-105) H 03/19/23 08:40 NT-Pro-B Natriuret Pep 648 pg/mL (0-125) H 03/20/23 04:26 Total Protein 6.3 g/dL (6.6-8.7) L 03/19/23 08:40 Albumin 3.4 g/dL (3.5-5.2) L 03/19/23 08:40 Globulin 2.9 g/dL (1.3-4.6) 03/19/23 08:40 Triglycerides 246 mg/dL (0-150) H 03/20/23 04:26 Cholesterol 203 mg/dL (0-200) H 03/20/23 04:26 LDL Cholesterol, Calc 117 mg/dL (50-129) 03/20/23 04:26 Total VLDL Cholesterol 68 mg/dL (0-30) H 03/18/23 21:54 HDL Cholesterol 37 mg/dL (60-100) L 03/20/23 04:26 LDL/HDL Ratio 3.16 RATIO (0.00-3.22) 03/20/23 04:26 Cholesterol/HDL Ratio 5.49 mg/dL (0.0-4.40) H 03/20/23 04:26 Vitamin B12 150 pg/mL (232-1245) L 03/18/23 21:54 Folate 12.5 ng/mL (4.8-37.3) 03/18/23 21:54 Procalcitonin 0.68 ng/mL (0-0.5) H 03/18/23 21:54 TSH 0.75 uIU/mL (0.27-4.20) 03/18/23 21:54 Random Cortisol 22.96 ug/dL (2.47-19.5) H 03/18/23 21:54 Urine Color Light yellow (Yellow) 03/18/23 21:45 Urine Appearance Sl hazy (CLEAR) A 03/18/23 21:45 Urine pH 5 (5-7) 03/18/23 21:45 Ur Specific Iva 1.001 (1.005-1.030) L 03/18/23 21:45 Urine Protein Neg (Negative) 03/18/23 21:45 Urine Glucose (UA) 4+ (Normal) H 03/18/23 21:45 Urine Ketones 1+ (Negative) H 03/18/23 21:45 Urine Blood Neg (Negative) 03/18/23 21:45 Urine Nitrate Negative (Negative) 03/18/23 21:45 Urine Bilirubin Neg (Negative) 03/18/23 21:45 Urine Urobilinogen Neg mg/dL (Negative) 03/18/23 21:45 Ur Leukocyte Esterase Negative (Negative) 03/18/23 21:45 Urine RBC 0-4 /hpf (0-2) H 03/18/23 21:45 Urine WBC 5-10 /hpf (0-5) H 03/18/23 21:45 Ur Squamous Epith Cells None /hpf (0-5) 03/18/23 21:45 Amorphous Sediment Not Reportable 03/18/23 21:45 Urine Bacteria 2+ /hpf (NONE) H 03/18/23 21:45 Urine Opiates Screen Negative ng/mL (Negative) 03/18/23 21:47 Ur Barbiturates Screen Negative ng/mL (Negative) 03/18/23 21:47 Ur Phencyclidine Scrn Negative ng/mL (Negative) 03/18/23 21:47 Ur Amphetamines Screen Negative ng/mL (Negative) 03/18/23 21:47 U Benzodiazepines Scrn Negative ng/mL (Negative) 03/18/23 21:47 Urine Cocaine Screen Negative ng/mL (Negative) 03/18/23 21:47 U Marijuana (THC) Screen Negative ng/mL (Negative) 03/18/23 21:47 Serum Ketones Negative (Negative) 03/18/23 21:54 Vitals Last Vital Signs Temp 98.0 F 03/21/23 04:00 Pulse 98 03/21/23 05:29 Resp 22 H 03/21/23 04:00 BP 143/94 03/21/23 04:00 Pulse Ox 98 03/21/23 04:00 O2 Del Method Room Air 03/21/23 04:00 Discharge Plan Discharge Patient Disposition: Home Condition: Stable Prescriptions: New amlodipine 5 mg Tablet 10 mg PO DAILY Qty: 90 4RF atorvastatin 40 mg Tablet 40 mg PO BEDTIME Qty: 90 0RF calamine-zinc oxide 8-8 % Lotion 1 applic topical Q4H PRN (Reason: Itching) Qty: 177 0RF insulin glargine 100 unit/mL Solution 25 unit SUBCUT BID Qty: 10 8RF metoprolol tartrate 25 mg Tablet 25 mg PO BID@0900,2100 Qty: 120 0RF metformin 1,000 mg tablet 500 mg PO BID Qty: 120 3RF cyanocobalamin (vitamin B-12) 1,000 mcg capsule 1,000 mcg PO DAILY Qty: 120 0RF lisinopril 20 mg tablet 20 mg PO DAILY Qty: 90 3RF oxycodone 10 mg tablet 5 mg PO Q8H PRN (Reason: pain) Qty: 14 0RF cefpodoxime 200 mg tablet 200 mg PO BID Qty: 10 0RF Rx Instructions: must administer with a meal/food Humalog KwikPen Insulin 100 unit/mL insulin pen See Rx Instructions .ROUTE .COMPLEX Qty: 15 5RF Rx Instructions: medium dose sliding scale gabapentin 100 mg capsule 100 mg PO DAILY Qty: 30 0RF Continued acetaminophen 650 mg Tablet Extended Release 650 mg PO Q8H PRN (Reason: Pain) Discharge Orders: Discharge Order (Routine); Ordered 03/21/23 Ordered By: Dina Rodriguez Discharge Diet: Diabetic Discharge Activity: Use walker/crutches as instructed Patient Instructions: Opioid Safety Activity Restrictions/Additional Instructions: No bending, Lifting or Twisting. Follow up on Thursday or Thu next week for Eval in Ortho Spine with Shaka Gann PAC Discharge Attestations Time Spent in Discharge Care*: greater than 30 min Quality Metrics Clinical Quality Measures [ No reported AMI, CVA or VTE this stay] Coding Level of Care Code Acute Code for Chg Fwd Diagnoses Pseudohyponatremia R79.89 Noncompliance Z91.199 Weakness of lower extremity R29.898 Radiculopathy due to lumbar intervertebral disc disorder M51.16 Hyperlipidemia E78.5 Uncontrolled type 2 diabetes mellitus Hyperglycemia R73.9 UTI (urinary tract infection) N39.0
[2023-03-21 07:44] VITALS: BP 145/93; PULSE 93; RESP 16; TEMP 36.7; O2SAT 97
[2023-03-21] MEDS: aspirin 81 mg EC Tablet PO (08:12)
[2023-03-21] MEDS: amlodipine 5 mg Tablet 10 MG PO (08:12)
[2023-03-21] MEDS: metoprolol tartrate 25 mg Tablet PO (08:12)
[2023-03-21] MEDS: folic acid 1 mg Tablet PO (08:12)
[2023-03-21] MEDS: insulin glargine 100 units/1 mL 25 UNIT SUBCUT (08:13)
[2023-03-21] MEDS: insulin lispro 100 unit/1 mL SUBCUT ×3 (08:13→12:22)
[2023-03-21] MEDS: cefTRIAXone 1,000 MG in sodium chloride 0.9% (plus) 50 ML 100 MG IV (08:13)
--- NOTE | 2023-03-21 10:36 | USCV_ITS ---
Yuri Ribera Age: 62 Gender: F : 1960 Exam Date: 03/21/2023 10:21 Ordering Phys: Dina Rodriguez MD Technologist: ARTHUR [place]am Location[place] [facility] [place] Indication: chf BP: / HR: 99 Rhythm: Sinus Technical Quality: Adequate MEASUREMENTS (Male / Female) Normal Values 2D ECHO LV Diastolic Diameter PLAX 4.6 cm 4.2 - 5.9 / 3.9 - 5.3 cm LV Systolic Diameter PLAX 3.7 cm IVS Diastolic Thickness 0.8 cm 0.6 - 1.0 / 0.6 - 0.9 cm IVS Systolic Thickness 1.1 cm LVPW Diastolic Thickness 0.7 cm 0.6 - 1.0 / 0.6 - 0.9 cm LVPW Systolic Thickness 1.3 cm LVOT Diameter 2.2 cm LV Ejection Fraction 2D Teich 41.5 % LV Ejection Fraction MOD 2C 27.3 % LV Ejection Fraction 2C AL 29.8 % LA Diameter 3.1 cm M-MODE Aortic Annulus Diameter 3.1 cm LA Ao Ratio MM 1.3 MV E Point Septal Separation 0.3 cm DOPPLER AV Peak Velocity 119.0 cm/s LVOT Peak Velocity 102.0 cm/s AV Area Cont Eq vti 3.1 cm squared AV Area Cont Eq pk 3.3 cm squared MV Area PHT 5.0 cm squared Mitral E to A Ratio 0.7 MV E' Velocity 40.0 cm/s Mitral E to MV E' Ratio 11.6 Mitral E to LV E' Lateral Ratio 10.6 Mitral E to LV E' Septal Ratio 13.0 PV Peak Velocity 90.0 cm/s FINDINGS Left Ventricle Normal left ventricular size, systolic function and wall thickness, with no regional wall motion abnormalities. Left ventricular ejection fraction is estimated at 55 %. . Normal diastolic filling pattern. Right Ventricle The right ventricle is normal in size and function. Right Atrium The right atrium is normal in size. Left Atrium The left atrium is normal in size. Mitral Valve Structurally normal mitral valve without significant stenosis or prolapse. There is no mitral regurgitation. Aortic Valve Moderate aortic valve calcification. No aortic valve stenosis. No aortic valve regurgitation. . There is trace aortic regurgitation. Tricuspid Valve Structurally normal tricuspid valve without significant stenosis or regurgitation. Pulmonary artery systolic pressure is normal. Pulmonic Valve Structurally normal pulmonic valve without significant stenosis. There is no pulmonic regurgitation. Pericardium Normal pericardium without effusion. Aorta Normal ascending aorta dimension. IVC The inferior vena cava appears normal. CONCLUSIONS 1-Normal left ventricular size, systolic function and wall thickness, with no regional wall motion abnormalities. Left ventricular ejection fraction is estimated at 55 %. . Normal diastolic filling pattern. 2-No significant valve abnormalities. 3-There is no pericardial effusion. 4-Right atrial pressure is around 5 mm of mercury. Dina Atwood MD (Electronically Signed) Final Date: 21 March 2023 14:25 S
[2023-03-21 11:55] LABS: Glucose Point of Care 268 mg/dL (70-110)
[2023-03-26 13:14] LABS: Adrenocorticotropic Hormone 29 pg/mL (6-50)
== END 2023-03-21 15:42 | disposition home or self-care (01) | DRG 638 ==
LOC: ER 23:44 → CSU 03-19 03:53
PROVIDERS: Admitting Provider Student in an Organized Health Care Education/Training Program; Emergency Provider Emergency Medicine; PCP Nurse Practitioner Family; Visit Provider Internal Medicine
DX: E11.65 Type 2 diabetes mellitus with hyperglycemia (principal); E87.1 Hypo-osmolality and hyponatremia; N39.0 Urinary tract infection, site not specified; E11.42 Type 2 diabetes mellitus with diabetic polyneuropathy; Z91.141 Patient's other noncompliance with medication regimen due to financial hardship; M54.16 Radiculopathy, lumbar region; E78.5 Hyperlipidemia, unspecified; I10 Essential (primary) hypertension; G89.29 Other chronic pain; Z85.820 Personal history of malignant melanoma of skin; E53.8 Deficiency of other specified B group vitamins
CPT/HCPCS: 36415; 36416; 72131; 72148; 80048; 80053; 80061; 80306; 81001; 82009; 82024; 82533; 82607; 82746; 82962; 83036; 83540; 83550; 83735; 83880; 84100; 84145; 84443; 85025; 87040; 87086; 87641; 93306; 94664; 96361; 96365; 96372; 96375; 96376; 97116; 97161; 99285; C9113; J0696; J1650; J1815; J2270; J3420; J7030; J7040

== ENCOUNTER 2023-12-16 18:02 | Emergency (ER) | payer MEDICAID, SELFPAY ==
[2023-12-16] VITALS (9 sets, daily range): BP systolic 132–203; BP diastolic 97–138; PULSE 104–116; RESP 16–22; TEMP 36.6; O2SAT 95–99
[2023-12-16 19:11] LABS: Basophils % 0.2 %; Eosinophils # 0.1 10^3/uL (0.0-0.8); Eosinophils % 1.7 %; Hematocrit 42.6 % (36-47); Lymphocytes # 3.2 10^3/uL (0.8-4.8); Lymphocytes % 38.4 %; Mean Corpuscular HGB Conc 34.3 g/dL (30-55); Mean Corpuscular Hemoglobin 29.4 pg (27-33); Mean Corpuscular Volume 85.7 fl (85-98); Mean Platelet Volume 9.1 fL (7.4-10.4); Monocytes # 0.5 10^3/uL (0.2-0.9); Monocytes % 6.1 %; Neutrophils # 4.39 10^3/uL (1.8-7.7); Neutrophils % 53.4 %; Nucleated Red Blood Cells % 0 %; Platelet Count 330 10^3/cmm (157-399); Red Blood Count 4.97 10^6/uL (3.85-5.65); Red Cell Distribution Width 12.3 % (12.1-15.1); White Blood Count 8.23 10^3/uL (3.29-11.43)
--- NOTE | 2023-12-16 19:14 | XRR_ITS ---
PROCEDURE INFORMATION: Exam: XR Chest Exam date and time: 12/16/2023 8:14 PM Age: 63 years old Clinical indication: Other: Weakness TECHNIQUE: Imaging protocol: Radiologic exam of the chest. Views: 1 view. COMPARISON: CR XR chest 2V* [id number] 02/12/2017 8:37 PM FINDINGS: Lungs: No focal consolidation. Pleural spaces: No evidence of pneumothorax. No evidence of pleural effusion. Heart/Mediastinum: Cardiomediastinal silhouette is within normal limits. Bones/joints: No evidence of acute osseous abnormality. XR/XR chest 1V portable [id number] IMPRESSION: 1. No acute cardiopulmonary abnormality.
[2023-12-16 19:29] LABS: Alanine Aminotransferase 13 U/L (0-33); Albumin Level 4.4 g/dL (3.5-5.2); Alkaline Phosphatase 75 U/L (35-105); Anion Gap 13.3 (5-19); Aspartate Amino Transferase 10 U/L (0-32); Blood Urea Nitrogen 19 mg/dL (8-23); Calcium 10.3 mg/dL (8.5-10.5); Carbon Dioxide 29 mmol/L (22-29); Chloride 97 mmol/L (98-107); Creatinine Clr Calc Pharmacy 101.2942; Glucose 314 mg/dL (65-115); Osmolality Calculated 294 mOsm/kg (285-295); Potassium 4.3 mmol/L (3.5-5.1); Sodium 135 mmol/L (136-145); Total Bilirubin 0.5 mg/dL (0.15-1.2); Total Protein 7.4 g/dL (6.6-8.7)
--- NOTE | 2023-12-16 19:37 | ED_ITS ---
HPI - Weakness 2 General: Chief complaint: Weakness Stated complaint: weakness, back pain, bilateral leg pain Time Seen by Provider: 12/16/23 18:57 History of Present Illness: Patient presents to the ER with reports of increasing weakness in her bilateral lower extremities for the last several years. Patient says now she is having difficulty in transferring herself to the commode and getting around her residence. Patient denies any recent inciting factor. Patient does have a injury on top of her left foot that she has had for quite some time. This wound does appear to be getting worse and now has an odor per the patient. Patient does have edema in her bilateral lower extremities she said this is worse when she sits in her wheelchair for a long period of time. Patient has had no insurance for a long time but has recently acquired Medicaid. Review of Systems 2 General: Reports: 10 or more systems reviewed and unremarkable except in HPI and below PFSH ED 2 PFSH: Medical History Pseudohyponatremia Noncompliance Weakness of lower extremity Radiculopathy due to lumbar intervertebral disc disorder Hyperlipidemia Hyperkalemia Uncontrolled type 2 diabetes mellitus UTI (urinary tract infection) Hyperglycemia GERD (gastroesophageal reflux disease) Vitamin B12 deficiency Hx of Sia disease Chronic low back pain Hypertension Diabetes mellitus Taylor syndrome Encounter for long-term opiate analgesic use Low back pain of over 3 months duration Opioid contract exists Insomnia due to medical condition Surgical History H/O melanoma excision LL - 2015 Hx of hysterectomy Hx of eye surgery right eye age 5 Family History Father Cancer Heart disease mother Sister Suicide Son Autism Social History Smoking and tobacco/nicotine status: never used tobacco/nicotine Second hand smoke exposure: No Alcohol intake: never Substance/Drug Use: never Caregiver/support person: Yes Lives independently: Yes Household members: children Housing: Apartment Marital status: Current occupational status: unemployed Current gender identity: Female Physical Exam 2 Const: COMMON NORMALS: no acute distress, average body habitus, patient oriented x3, no limitations, healthy appearing, alert and well nourished HENMT: COMMON NORMALS: normocephalic, atraumatic, hearing grossly normal bilaterally, external ears normal, Normal external nose present, moist oral mucous membranes and oropharynx normal HEAD & SCALP: normocephalic and atraumatic NOSE: Normal external nose present EXTERNAL EAR: Yes external ears normal Eye: COMMON NORMALS: Equal, round and reactive pupils present, EOMs intact bilaterally, conjunctivae normal and no scleral icterus CONJUNCTIVA: Yes conjunctivae normal PUPIL: Yes Equal, round and reactive pupils present Neck/C-Spine: COMMON NORMALS: full ROM, no lymphadenopathy, supple, no meningeal signs, no JVD and Thyroid normal THYROID: Thyroid normal Chest: COMMONS NORMALS: normal inspection of the chest and normal palpation of entire chest wall Resp: COMMON NORMALS: normal respiratory effort, No retractions, No use of accessory muscles and clear to auscultation bilaterally AUSCULTATION: clear to auscultation bilaterally Cardio: COMMON NORMALS: no JVD, regular rate, regular rhythm, S1 normal heart sound present, S2 normal heart sound present, No gallops present (Cardio), No clicks present (Cardio) and No rub (Cardio) RATE: regular rate RHYTHM: r egular rhythm HEART SOUNDS: S1 normal heart sound present and S2 normal heart sound present GI: COMMON NORMALS: Normal to inspection, nondistended, normoactive bowel sounds present, Soft to palpation, non-tender, No hepatosplenomegaly present and no masses PALPATION: Yes Soft to palpation and Yes No hepatosplenomegaly present Extremity: NARRATIVE EXTREMITY EXAM: Edema to bilateral lower extremities, wound on right dorsum of foot, has foul odor, no drainage or erythema, Neuro: COMMON NORMALS: patient oriented x3 SENSORIUM/ORIENTATION: Yes alert MENINGEAL SIGNS: Yes no meningeal signs Course 2 Vital Signs: Vital signs: Vital Signs Temperature 98 F 12/16/23 18:08 Pulse Rate 108 H 12/16/23 22:00 Respiratory Rate 16 12/16/23 22:00 Blood Pressure 198/138 12/16/23 22:00 Pulse Oximetry 98 12/16/23 22:00 Oxygen Delivery Me thod Room Air 12/16/23 18:08 MDM - Weakness Medical Decision Making Patient had lab work, chest x-ray, foot CT, patient was given Toradol 30 mg IV and Bactrim DS 1 p.o. Patient still working on being able to provide us urine. All these results was discussed with the patient. Patient be referred to wound care for chronic right foot wound. Patient be placed on mild dose of pain medicine and antibiotics. Patient to follow-up with her PCP for further evaluation and treatment. Differential Diagnosis Unlikely acute myocardial infarction, anemia, hypoglycemia, hypothyroidism, rhabdomyolysis, sepsis or dehydration Medical Records I reviewed the patient's medical records. Lab Data I reviewed the patient's lab results. 12/16/23 19:05 12/16/23 19:05 Radiology Impressions Chest X-Ray 12/16/23 19:14 IMPRESSION: 1. No acute cardiopulmonary abnormality. Foot CT 12/16/23 20:12 IMPRESSION: 1. Cellulitis with unorganized complex fluid along the superficial soft tissues of the dorsal forefoot, possibly representing phlegmon. No discrete abscess. Laboratory Results WBC 8.23 10^3/uL (3.29-11.43) 12/16/23 19:05 RBC 4.97 10^6/uL (3.85-5.65) 12/16/23 19:05 Hgb 14.60 g/dL (11.27-16.99) 12/16/23 19:05 Hct 42.6 % (36-47) 12/16/23 19:05 MCV 85.7 fl (85-98) 12/16/23 19:05 MCH 29.4 pg (27-33) 12/16/23 19:05 MCHC 34.3 g/dL (30-55) 12/16/23 19:05 RDW 12.3 % (12.1-15.1) 12/16/23 19:05 Plt Count 330 10^3/cmm (157-399) 12/16/23 19:05 MPV 9.1 fL (7.4-10.4) 12/16/23 19:05 Neut % (Auto) 53.4 % 12/16/23 19:05 Lymph % (Auto) 38.4 % 12/16/23 19:05 [place] % (Auto) 6.1 % 12/16/23 19:05 Eos % (Auto) 1.7 % 12/16/23 19:05 Baso % (Auto) 0.2 % 12/16/23 19:05 Neut # (Auto) 4.39 10^3/uL (1.8-7.7) 12/16/23 19:05 Lymph # (Auto) 3.2 10^3/uL (0.8-4.8) 12/16/23 19:05 [place] # (Auto) 0.5 10^3/uL (0.2-0.9) 12/16/23 19:05 Eos # (Auto) 0.1 10^3/uL (0.0-0.8) 12/16/23 19:05 Baso # (Auto) 0.0 10^3/uL (0.0-0.1) 12/16/23 19:05 Nucleated RBC % (auto) 0 % 12/16/23 19:05 Nucleated RBCs # 0.0 /100WBC 12/16/23 19:05 Sodium 135 mmol/L (136-145) L 12/16/23 19:05 Potassium 4.3 mmol/L (3.5-5.1) 12/16/23 19:05 Chloride 97 mmol/L (98-107) L 12/16/23 19:05 Carbon Dioxide 29 mmol/L (22-29) 12/16/23 19:05 Anion Gap 13.3 (5-19) 12/16/23 19:05 BUN 19 mg/dL (8-23) 12/16/23 19:05 Creatinine 0.6 mg/dL (0.5-0.9) 12/16/23 19:05 GFR Calculation 101.0 mL/min (90-130) 12/16/23 19:05 Glucose 314 mg/dL (65-115) H 12/16/23 19:05 Calculated Osmolality 294 mOsm/kg (285-295) 12/16/23 19:05 Lactic Acid 1.3 mmol/L (0.5-2.2) 12/16/23 19:05 Calcium 10.3 mg/dL (8.5-10.5) 12/16/23 19:05 Phosphorus 3.6 mg/dL (2.5-4.5) 12/16/23 19:05 Magnesium 2.1 mg/dL (1.7-2.3) 12/16/23 19:05 Total Bilirubin 0.5 mg/dL (0.15-1.2) 12/16/23 19:05 AST 10 U/L (0-32) 12/16/23 19:05 ALT 13 U/L (0-33) 12/16/23 19:05 Alkaline Phosphatase 75 U/L (35-105) 12/16/23 19:05 C-Reactive Protein 3.0 mg/L (0.0-4.9) 12/16/23 19:05 NT-Pro-B Natriuret Pep 135 pg/mL (0-125) H 12/16/23 19:05 Total Protein 7.4 g/dL (6.6-8.7) 12/16/23 19:05 Albumin 4.4 g/dL (3.5-5.2) 12/16/23 19:05 Globulin 3.0 g/dL (1.3-4.6) 12/16/23 19:05 Procalcitonin 0.05 ng/mL (0-0.5) 12/16/23 19:05 All radiology interpretation(s) finalized by discharge Discharge Plan Discharge Patient Disposition: Home Clinical Impression: Wound of foot, Chronic low back pain, Hypertension Condition: Stable Prescriptions: New hydrocodone-acetaminophen 5-325 mg tablet 1 tab PO Q6H PRN (Reason: pain) Qty: 14 0RF sulfamethoxazole-trimethoprim [Bactrim DS] 800-160 mg tablet 1 tab PO BID Qty: 14 0RF No Action acetaminophen 650 mg Tablet Extended Release 650 mg PO Q8H PRN (Reason: Pain) amlodipine 5 mg Tablet 10 mg PO DAILY Qty: 90 4RF atorvastatin 40 mg Tablet 40 mg PO BEDTIME Qty: 90 0RF calamine-zinc oxide 8-8 % Lotion 1 applic topical Q4H PRN (Reason: Itching) Qty: 177 0RF insulin glargine 100 unit/mL Solution 25 unit SUBCUT BID Qty: 10 8RF metoprolol tartrate 25 mg Tablet 25 mg PO BID@0900,2100 Qty: 120 0RF metformin 1,000 mg tablet 500 mg PO BID Qty: 120 3RF cyanocobalamin (vitamin B-12) 1,000 mcg capsule 1,000 mcg PO DAILY Qty: 120 0RF lisinopril 20 mg tablet 20 mg PO DAILY Qty: 90 3RF cefpodoxime 200 mg tablet 200 mg PO BID Qty: 10 0RF Rx Instructions: must administer with a meal/food Humalog KwikPen Insulin 100 unit/mL insulin pen See Rx Instructions .ROUTE .COMPLEX Qty: 15 5RF Rx Instructions: medium dose sliding scale gabapentin 100 mg capsule 100 mg PO DAILY Qty: 30 0RF Discharge Orders: Discharge ED (Routine); Ordered 12/16/23 Ordered By: Jamar Best Patient Instructions: Opioid Safety, Pain Management Coding Level of Care Code ED Bird Trapper for Joshua De León
--- NOTE | 2023-12-16 19:42 | ECG_ITS ---
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 Measurements Intervals [place] Rate: 111 P: 4 MN: 144 QRS: 1 QRSD: 90 T: 3 QT: 309 QTc: 420 Interpretive Statements SINUS TACHYCARDIA POSSIBLE LEFT ATRIAL ENLARGEMENT [-0.1mV P-WAVE IN V1/V2] POSSIBLE LEFT VENTRICULAR HYPERTROPHY [VOLTAGE CRITERIA PLUS LAE OR QRS WIDENING] Compared to ECG 02/12/2017 19:26:49 Sinus rhythm no longer present Myocardial infarct finding no longer present Electronically Signed On 12-17-2023 15:07:36 CDT by Gary Banegas M.D. [id number]
[2023-12-16 19:45] LABS: Lactic Sepsis W/Reflex 1.3 mmol/L (0.5-2.2)
[2023-12-16 19:55] LABS: NT Pro B Type Natriuretic Pept 135 pg/mL (0-125); Procalcitonin 0.05 ng/mL (0-0.5)
[2023-12-16 20:06] LABS: Magnesium 2.1 mg/dL (1.7-2.3); Phosphorus 3.6 mg/dL (2.5-4.5)
--- NOTE | 2023-12-16 20:12 | CTR_ITS ---
PROCEDURE INFORMATION: Exam: CT Right Lower Extremity With Contrast, Foot Exam date and time: 12/16/2023 8:23 PM Age: 63 years old Clinical indication: Difficulty in walking and swelling, leg or foot; Additional info: Large wound dorsum foot, R/O abscess TECHNIQUE: Imaging protocol: CT of the right lower extremity with intravenous contrast was performed. Exam focused on the foot. Radiation optimization: All CT scans at this facility use at least one of these dose optimization techniques: automated exposure control; mA and/or kV adjustment per patient size (includes targeted exams where dose is matched to clinical indication); or iterative reconstruction. Contrast material: OMNI 350; Contrast volume: 100 ml; Contrast route: INTRAVENOUS (IV); COMPARISON: No relevant prior studies available. RADIATION DOSE METRICS: Total DLP (mGy-cm): 227.74 FINDINGS: Bones/joints: No evidence of osseous erosion, fracture or subluxation. Tarsometatarsal alignment is maintained. Bony demineralization compatible with disuse osteopenia. Soft tissues: Prominent soft tissue edema, particularly of the dorsum of the forefoot/midfoot with skin thickening compatible with cellulitis. There is an approximately 1.5 x 1.5 cm region of subepidermal complex fluid along the dorsum of the forefoot, possibly representing phlegmon. No discrete abscess. Tendons are grossly intact. No soft tissue air to suggest gas-forming infection/fasciitis. CT/CT foot RT w con [id number] IMPRESSION: 1. Cellulitis with unorganized complex fluid along the superficial soft tissues of the dorsal forefoot, possibly representing phlegmon. No discrete abscess.
[2023-12-16] MEDS: iohexol 350 mg/mL 500 mL Btl (per mL) IV (20:24)
[2023-12-16] MEDS: sodium chloride 0.9% 1,000 ML 999 ML IV (21:19)
[2023-12-16] MEDS: ketorolac 30 mg/mL INJ IVP (22:14)
[2023-12-16 23:02] LABS: Blood Urine Neg (Negative); Glucose Urine UA 4+ (Normal); Ketones Urine Negative (Negative); Nitrate Urine Negative (Negative); Protein Urine 1+ (Negative); Urine Appearance Hazy (CLEAR); Urine Color Light yellow (Yellow); pH Urine 5 (5-7)
[2023-12-16 23:03] LABS: Add Urine Microscopic? YES; Bacteria Urine 1+ /hpf; Bilirubin Urine Neg (Negative); Leukocyte Esterase Urine 1+ (Negative); Squamous Epithelial Cell Urine 15-25 /hpf (0-5); Urobilinogen Urine Neg (Negative); WBC Urine 15-25 /hpf (0-5)
[2023-12-16 23:04] LABS: Add Urine Culture? No
[2023-12-16] MEDS: sulfamethoxazole-trimeth DS 160-800 mg Tablet 1 TAB PO (23:05)
--- NOTE | 2023-12-18 11:40 | DCPLANNER ---
Called Wound Care spoke to Andreina and Wound Care will be calling the patient with an appointment date and time.
== END 2023-12-16 23:21 | disposition home or self-care (01) ==
PROVIDERS: Internal Medicine; Emergency Provider Emergency Medicine
DX: G89.29 Other chronic pain (principal); M54.50 Low back pain, unspecified; I10 Essential (primary) hypertension; S91.301A Unspecified open wound, right foot, initial encounter; X58.XXXA Exposure to other specified factors, initial encounter; E78.5 Hyperlipidemia, unspecified; E11.9 Type 2 diabetes mellitus without complications; Z79.4 Long term (current) use of insulin; Z79.84 Long term (current) use of oral hypoglycemic drugs; Z74.2 Need for assistance at home and no other household member able to render care
CPT/HCPCS: 71045; 73701; 80053; 81001; 83605; 83735; 83880; 84100; 84145; 85025; 86140; 93005; 96361; 96374; 99285; J1885; J7030; Q9967

== ENCOUNTER 2024-01-04 13:36 | Inpatient (IN) | payer MEDICAID, SELFPAY ==
[2024-01-04] VITALS (9 sets, daily range): BP systolic 85–136; BP diastolic 49–71; PULSE 56–114; RESP 14–23; TEMP 36.7–36.8; O2SAT 93–100; BMI 29.9
--- NOTE | 2024-01-04 13:39 | ECG_ITS ---
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 Measurements Intervals [place] Rate: 96 P: 64 IA: 212 QRS: 51 QRSD: 92 T: -45 QT: 341 QTc: 431 Interpretive Statements SINUS RHYTHM WITH FIRST DEGREE AV BLOCK WITH FREQUENT SUPRAVENTRICULAR PREMATURE COMPLEXES POSSIBLE LEFT ATRIAL ENLARGEMENT [-0.1mV P-WAVE IN V1/V2] ST ELEVATION, CONSIDER ANTERIOR INJURY [MARKED ST ELEVATION W/O NORMALLY INFLECTED T-WAVE IN V2-V5] MARKED ST ELEVATION, CONSIDER INFERIOR INJURY [MARKED ST ELEVATION W/O NORMALLY INFLECTED T-WAVE IN II/aVF] ACUTE NC Compared to ECG 12/16/2023 19:42:10 First degree AV block now present ST (T wave) deviation now present Myocardial infarct finding now present Sinus tachycardia no longer present Electronically Signed On 01-04-2024 17:58:03 CDT by Madhavi Munguia M.D. [id number]
--- NOTE | 2024-01-04 13:39 | XRR_ITS ---
PROCEDURE INFORMATION: Exam: XR Chest Exam date and time: 01/04/2024 3:27 PM Age: 63 years old Clinical indication: Pain; Angina pectoris; Additional info: Cp TECHNIQUE: Imaging protocol: Radiologic exam of the chest. Views: 1 view. COMPARISON: CR (CHEST, ) 12/16/2023 8:14 PM FINDINGS: Lungs: Unremarkable. No consolidation or mass. Pleural spaces: Unremarkable. No pleural effusion. No pneumothorax. Heart/Mediastinum: Unremarkable. No cardiomegaly. Bones/joints: Unremarkable. XR/XR chest 1V portable [id number] IMPRESSION: No acute findings.
--- NOTE | 2024-01-04 13:53 | XACV_ITS ---
Exam Room: [facility] Ht: 165 cm Wt: 95 kg BSA: 2.13 m2 Gender: Female : 1960 Exam Priority: Routine Indication(s): - Acute inferior KS Procedure(s): Procedure Description: Diagnostic procedure Procedure Description: PCI procedure Procedure Description: Drug Eluting Coronary Stent Procedure Description: PTCA Procedure Description: Miscellaneous Procedure Description: ACT Procedure Description: Coronary Angiography Diagnostic Cath Status: Emergency Diagnostic Findings * INDICATION: 63 year old female with past medical history of diabetes, hypertension and no significant prior cardiac history presented to hospital with 2 days of on and off chest pain. She says first chest pain was on Thursday that is 2 days ago. However still continues having chest pain. EKG shows ST elevations in inferior and anterior leads. Cardiac Supervisor Facepiece Line was activated and plan for coronary angiogram emergently. * Left Main has no significant disease. * Proximal to mid Right Coronary Artery: total thrombotic occlusion, VIDA: 0 flow. PDA has severe 90% stenosis. PLV branch has diffuse disease. * Proximal Left Anterior Descending: significant 80% stenosis, VIDA: 3 flow. * Mid Circumflex: severe 90% stenosis, VIDA: 3 flow. * Ramus: severe 90% stenosis, VIDA: 3 flow. * Posterior Descending Right: severe 90% stenosis, VIDA: 3 flow. * Coronary angiography shows right dominance. PCI Status: Emergency PCI Indication: Immediate PCI for STEMI Interventional Findings * Procedure detail: * We engaged * RCA with JR4 guide catheter. IV heparin was administered to maintain anticoagulation. A 0.014 run-through guidewire was used to cross the total occlusion of proximal to mid RCA. We predilated stenosis with 2.0x 6 mm semicompliant balloon. This was followed with placement of 3.0 x 38 mm resolute Andrei drug-eluting stent. We then predilated PDA stenosis with 2.25 x 20 mm semicompliant balloon. We then placed 2.5 x 30 mm resolute Andrei drug-eluting stent in the PDA. Final angiogram was performed that showed excellent stent expansion and no residual stenosis. PLV branch was treated medically. Guidewire and guide catheter were removed. Patient left the Supervisor Facepiece Line in a stable condition.. * Proximal Right Coronary Artery: 100% stenosis treated with a AB MINI TREK 2.00X6 RX BALLOON, and MDT R ANDREI 3.0X38 KECIA. 0% residual stenosis, VIDA: 3 flow. * Posterior Descending Right: 90% stenosis treated with a AB TREK 2.25X20 RX BALLOON, and MDT R ANDREI 2.5X30 KECIA. 0% residual stenosis, VIDA: 3 flow. Conclusions 1. Total thrombotic occlusion of proximal to mid RCA status post successful revascularization with 1 stent. Severe PDA stenosis treated with 1 stent. Patient has multivessel CAD. Has severe proximal LAD, severe ramus artery and severe mid left circumflex artery stenosis.. 2. Proximal Right Coronary Artery was treated with a Balloon, and Drug Eluting Stent. 3. Posterior Descending Right was treated with a Balloon, and Drug Eluting Stent. Recommendations * Dual antiplatelet therapy. * Heart team discussion with CT surgery regarding possible CABG versus multivessel PCI as a staged procedure. * High intensity statin therapy. Interventional RX Recommendation: PCI w/o planned CABG Diagnostic RX Recommendation: PCI w/o planned CABG Anticoagulation: Heparin Pressures Phase:Rest AO : 103 / 71 ( 86 ) @ 3:19:00 PM 100 / 63 ( 83 ) @ 3:24:00 PM 95 / 67 ( 81 ) @ 3:32:00 PM 106 / 83 ( 94 ) @ 3:41:00 PM Clinical Evaluation EBL: 5mL-10mL Procedural Details Pre-Procedure Time Out. Identified patient by full name and date of as verbalized by the patient/guarantor. Does the consent match the physician's order: N/A Emergent; Informed Consent not obtained due to time critical life threat. Accurate & Complete Informed Consent: N/A Emergent; Informed Consent not obtained due to time critical life threat. Inpatient/Outpatient History & Physical on Chart: N/A Emergent; Informed Consent not obtained due to time critical life threat. If H&P is completed, is and addenduem needed: N/A Emergent; Informed Consent not obtained due to time critical life threat; If yes, is the addendum complete: N/A Emergent; Informed Consent not obtained due to time critical life threat. Visualize and Verify Site with Patient/Guarantor: N/A. Relevant Radiology Images available: N/A Emergent; Informed Consent not obtained due to time critical life threat. Pre-op teaching completed and patient verbalized understanding. The risks, benefits, and alternatives of sedation and/or procedure were discussed by physician. The patient agrees to continue. Procedure started. [facility] Clinical Fraility Score: 4: Vulnerable. Supervisor Facepiece Line Indications: ACS <= 24 hours. Chest Pain Symptom Assessment: Typical Angina Symptoms. Cardiovascular Instability: Yes, if yes, Persistant Ischemic Symptoms. Correct patient, site and procedure confirmed by cath team. Current diagnosis: STEMI. PERRLA. Strong, equal hand director process bilaterally. Lungs clear x 5 lobes. IV Site on Arrival: 20 gauge in the right anticubital. IV Site on Arrival: 20 gauge in the left anticubital. IV Fluids: 0.9% NaCl at KVO. 0 mL infused prior to labor contractor. Pre Procedural Pulses: right radial was 3+. Oxygen started at 2liters/min via nasal canula. right groin was prepped with chloroprep then draped in the usual sterile fashion. Baseline sample Acquired. HR: 97 BPM. Physician notified. Patient's family unavailable. Equipment: 6F - Radial. Cardiac Cath Pack. ACIST Manifold Kit Model BT 2000. Heparinized Saline (2 units/mL), 1000 mL bag. Physician arrived. Physician scrubbed in. Immediate Pre-Procedure Time Out. Correct Patient: N/A Emergent; Informed Consent not obtained due to time critical life threat; Correct Procedure: N/A Emergent; Informed Consent not obtained due to time critical life threat; Correct Site: N/A Emergent; Informed Consent not obtained due to time critical life threat; Correct Patient Position: N/A Emergent; Informed Consent not obtained due to time critical life threat; Correct Supplies: N/A Emergent; Informed Consent not obtained due to time critical life threat; Dried Flammable Prep: N/A Emergent; Informed Consent not obtained due to time critical life threat; Blood Products Available: N/A Emergent; Informed Consent not obtained due to time critical life threat;. Lidocaine 1% infiltrated to the right radial. Arterial access obtained. A 5 marshallese TIG catheter in over the exchange J wire. Multiple views taken of left coronary artery. Catheter redirected to the RCA. Cineography of the RCA performed. Catheter removed over the exchange J wire. 6 marshallese JR 4 guide catheter was inserted over the exchange J wire. Runthrough guidewire was advanced through the guide catheter to lesion in the mid LAD. PCI Indication : Immediate PCI for STEMI. Inflation number : 1 A AB MINI TREK 2.00X6 RX BALLOON was prepped and advanced across the Prox RCA , then inflated to 8 RUBI for 0:08 seconds. Inflation number: 2 The AB MINI TREK 2.00X6 RX BALLOON was reinflated across the Prox RCA, to 12 RUBI for 0:06 seconds. Inflation number: 3 The AB MINI TREK 2.00X6 RX BALLOON was reinflated across the Prox RCA, to 12 RUBI for 0:04 seconds. Inflation number: 4 The AB MINI TREK 2.00X6 RX BALLOON was reinflated across the Prox RCA, to 12 RUBI for 0:04 seconds. Inflation Number : 5 A MDT R ANDREI 3.0X38 KECIA -Lot Number# [id number] was prepped and advanced across the Prox RCA. The stent was deployed at 12 RUBI for 0:15 seconds. Exp. . Guide catheter out. Inflation number : 1 A AB TREK 2.25X20 RX BALLOON was prepped and advanced across the R PDA , then inflated to 8 RUBI for 0:09 seconds. Inflation number: 2 The AB TREK 2.25X20 RX BALLOON was reinflated across the R PDA, to 6 RUBI for 0:08 seconds. Balloon out. Results checked. Inflation Number : 3 A MDT R ANDREI 2.5X30 KECIA -Lot Number# [id number] was prepped and advanced across the R PDA. The stent was deployed at 12 RUBI for 0:18 seconds. Exp. . Stent balloon out over wire. Results checked. Wire out. ACT drawn. Results 315 seconds. Therapeutic limits - pre-heparin administration 90-150 seconds and monitoring heparin during a vascular procedure >250 seconds. Critical baseline Troponin of 2884 received from Lab. Reported to Dr. Parks with no new orders at this time. Dr. Parks scrubbed out. A TR Band was successful obtaining hemostatsis at the Right Radial artery insertion site. Post Procedure: Pulses reassessed and unchanged. PERRLA. Strong, equal hand director process bilaterally. No VTE prophylaxis required. Medication's Wasted: Lidocaine 1% = 18 mL. Medication's Wasted: Nitro = 49.6 mg. Medication's Wasted: Heparin = 1000 units. Medication's Wasted: Other = Versed 1 mg. Medication's Wasted: Other = Fentanyl 50 mcg. Total IV fluids: 100 mL. PCI Indication: STEMI. Post-op diagnosis: Total thrombotic occlusion of the mid RCA S/P PCI/multi vessel CAD. Complications: none. Estimated blood loss: 5mL-10mL. Responsiveness - Normal response to verbal stimuli; alert and oriented, PERRLA. Airway - Unaffected, no intervention required; spontaneous ventilation. Circulation: W/N/L, pulses unchanged. Nausea/Vomiting: No. Procedure completed. Patient transferred by bed to 1st floor. Vital chart was stopped. Access Site Site: Right Radial artery Sheath Size: 6 Fr Hemostasis Method: TR Band Hemostasis Success: Successful Procedure Medications Start: 2:08 PM Stop: 2:08 PM Medication: Versed Amount: 1 mg Route: I.V. Start: 2:08 PM Stop: 2:08 PM Medication: Fentanyl Amount: 25 mcg Route: I.V. Start: 2:13 PM Stop: 2:13 PM Medication: Versed Amount: 1 mg Route: I.V. Start: 2:13 PM Stop: 2:13 PM Medication: Fentanyl Amount: 25 mcg Route: I.V. Start: 2:10 PM Stop: 2:10 PM Medication: Nitrogylcerin Amount: 200 mcg Route: I.A. Start: 2:17 PM Stop: 2:17 PM Medication: Fentanyl Amount: 25 mcg Route: I.V. Start: 2:25 PM Stop: 2:25 PM Medication: Heparin Amount: 5000 units Route: I.V. Start: 2:27 PM Stop: 2:27 PM Medication: Fentanyl Amount: 25 mcg Route: I.V. Start: 2:39 PM Stop: 2:39 PM Medication: Nitrogylcerin Amount: 200 mcg Route: I.C. Start: 2:42 PM Stop: 2:42 PM Medication: Fentanyl Amount: 50 mcg Route: I.V. Start: 2:44 PM Stop: 2:44 PM Medication: Versed Amount: 1 mg Route: I.V. I, the attending physician, have reviewed and verified all procedure medications. Yes, all medications given per verbal order Report Signatures Finalized by Alek Parks MD on 01/17/2024 11:43 AM
--- NOTE | 2024-01-04 13:54 | W.ED.CHESTPA ---
HPI - Chest Pain General: Stated Complaint: chest pain, leg pain, weakness Time Seen by Provider: 01/04/24 13:47 Source: patient Mode of arrival: ambulatory Limitations: no limitations History of Present Illness: 63-year-old female states she has been having chest pain over the last 2 days. She states it has been a pressure pain with some shortness of breath states her pain is currently a 2 out of 10 denies any nausea denies any diaphoresis her EKG does show ST elevation no history of known coronary artery disease. Associated symptoms: Reports dyspnea; Deny abdominal pain, fever(s), nausea or vomiting Review of Systems Const: Denies: fever(s), chills, body aches or change in appetite ENMT: Denies: throat pain or dental pain Card: Reports: chest pain Resp: Reports: dyspnea GI: Denies: abdominal pain, nausea, vomiting or diarrhea Musc: Denies: neck pain or back pain Skin/Breast: Denies: rash Neuro: Denies: headache(s) PFSH ED PFSH: Medical History Pseudohyponatremia Noncompliance Weakness of lower extremity Radiculopathy due to lumbar intervertebral disc disorder Hyperlipidemia Hyperkalemia Uncontrolled type 2 diabetes mellitus UTI (urinary tract infection) Hyperglycemia GERD (gastroesophageal reflux disease) Vitamin B12 deficiency Hx of Jay disease Chronic low back pain Hypertension Diabetes mellitus Jay syndrome Encounter for long-term opiate analgesic use Low back pain of over 3 months duration Opioid contract exists Insomnia due to medical condition Surgical History H/O melanoma excision 2015 Hx of hysterectomy Hx of eye surgery right eye age 5 Family History Father Cancer Heart disease mother Sister Suicide Son Autism Social History Smoking and tobacco/nicotine status: never used tobacco/nicotine Second hand smoke exposure: No Alcohol intake: never Substance/Drug Use: never Caregiver/support person: Yes Lives independently: Yes Household members: children Housing: Apartment Marital status: Current occupational status: unemployed Current gender identity: Female Physical Exam Const: COMMON NORMALS: patient oriented x3 HENMT: COMMON NORMALS: normocephalic and atraumatic HEAD & SCALP: normocephalic and atraumatic Eye: COMMON NORMALS: Equal, round and reactive pupils present and EOMs intact bilaterally PUPIL: Yes Equal, round and reactive pupils present Neck/C-Spine: COMMON NORMALS: full ROM and supple Chest: COMMONS NORMALS: normal inspection of the chest and normal palpation of entire chest wall Resp: COMMON NORMALS: normal respiratory effort, No retractions, No use of accessory muscles and clear to auscultation bilaterally AUSCULTATION: clear to auscultation bilaterally Cardio: COMMON NORMALS: regular rate, regular rhythm and No murmurs present (Cardio) RATE: regular rate RHYTHM: regular rhythm GI: COMMON NORMALS: Normal to inspection, nondistended, normoactive bowel sounds present, Soft to palpation, non-tender and no masses PALPATION: Yes Soft to palpation Extremity: COMMON NORMALS: normal to inspection and full ROM Neuro: COMMON NORMALS: patient oriented x3, moves all extremities and no focal motor deficits Psych: COMMON NORMALS: mental status grossly normal, Normal thought process present and cooperative THOUGHT PROCESS: Normal thought process present Skin: COMMON NORMALS: no rashes or lesions noted and no wounds GENERAL SKIN EXAM: no rashes or lesions noted MDM - Chest Pain Medical Decision Making Patient presents for chest pain she does have ST elevation on EKG Bindery Production Manager was activated electronic masking system operator is at bedside currently will give heparin Plavix and patient is going to [employer] Production Manager Medical Records I reviewed the patient's medical records. Lab Data I reviewed the patient's lab results. XR interpretation done by ED provider, pending radiology final review EKG Data EKG 1: I personally reviewed and interpreted this EKG as follows: EKG interpretation date: 01/04/24 EKG interpretation time: 13:42 Interpretation: nsr hr 96 st elevaion inferior lead qrs 92 qtc 394 Discharge Plan Discharge Patient Disposition: Admitted As Inpatient Clinical Impression: ST elevation (STEMI) myocardial infarction Condition: Stable Prescriptions: No Action acetaminophen 650 mg Tablet Extended Release 650 mg PO Q8H PRN (Reason: Pain) amlodipine 5 mg Tablet 10 mg PO DAILY Qty: 90 4RF atorvastatin 40 mg Tablet 40 mg PO BEDTIME Qty: 90 0RF calamine-zinc oxide 8-8 % Lotion 1 applic topical Q4H PRN (Reason: Itching) Qty: 177 0RF insulin glargine 100 unit/mL Solution 25 unit SUBCUT BID Qty: 10 8RF metoprolol tartrate 25 mg Tablet 25 mg PO BID@0900,2100 Qty: 120 0RF metformin 1,000 mg tablet 500 mg PO BID Qty: 120 3RF cyanocobalamin (vitamin B-12) 1,000 mcg capsule 1,000 mcg PO DAILY Qty: 120 0RF lisinopril 20 mg tablet 20 mg PO DAILY Qty: 90 3RF cefpodoxime 200 mg tablet 200 mg PO BID Qty: 10 0RF Rx Instructions: must administer with a meal/food Humalog KwikPen Insulin 100 unit/mL insulin pen See Rx Instructions .ROUTE .COMPLEX Qty: 15 5RF Rx Instructions: medium dose sliding scale gabapentin 100 mg capsule 100 mg PO DAILY Qty: 30 0RF hydrocodone-acetaminophen 5-325 mg tablet 1 tab PO Q6H PRN (Reason: pain) Qty: 14 0RF Bactrim DS 800-160 mg tablet 1 tab PO BID Qty: 14 0RF Coding Level of Care Code ED Candle Wrapper for Chg Sarthak
[2024-01-04] MEDS: clopidogrel 300 mg Tablet 600 MG PO (13:56)
[2024-01-04] MEDS: aspirin 325 mg Tablet PO (13:56)
[2024-01-04] MEDS: heparin 5,000 unit/mL INJ 1 mL 4000 UNIT IVP (13:57)
[2024-01-04 13:59] LABS: Basophils % 0.2 %; Eosinophils % 0.1 %; Hematocrit 40.7 % (36-47); Lymphocytes # 3.1 10^3/uL (0.8-4.8); Lymphocytes % 18.1 %; Mean Corpuscular HGB Conc 34.6 g/dL (30-55); Mean Corpuscular Hemoglobin 30.2 pg (27-33); Mean Corpuscular Volume 87.2 fl (85-98); Mean Platelet Volume 9.5 fL (7.4-10.4); Monocytes # 1.4 10^3/uL (0.2-0.9); Monocytes % 8.1 %; Neutrophils % 72.9 %; Nucleated Red Blood Cells % 0 %; Platelet Count 357 10^3/cmm (157-399); Red Blood Count 4.67 10^6/uL (3.85-5.65); Red Cell Distribution Width 12.3 % (12.1-15.1); White Blood Count 17.14 10^3/uL (3.29-11.43)
--- NOTE | 2024-01-04 14:03 | PM.HP ---
Providers/Chief Complaint Admitting Physician: Alek Parks MD/ Cardiology Chief Complaint: chest pain, leg pain, weakness History of Present Illness Yuri Ribera is a 63 year old female with past medical history of diabetes, hypertension and no significant prior cardiac history presented to hospital with 2 days of on and off chest pain. She says first chest pain was on Thursday that is 2 days ago. However still continues having chest pain. EKG shows ST elevations in inferior and anterior leads. Cardiac Global Clinical Leader was activated and plan for coronary angiogram emergently. Review of Systems Const: Denies: fever(s), chills, body aches or change in appetite ENMT: Denies: throat pain or dental pain Card: Reports: chest pain Resp: Reports: dyspnea GI: Denies: abdominal pain, nausea, vomiting or diarrhea Musc: Denies: neck pain or back pain Skin/Breast: Denies: rash Neuro: Denies: headache(s) Medications/Allergies Home Medications Medication Instructions Recorded Confirmed Last Taken Type acetaminophen 650 mg 650 mg PO Q8H PRN Pain 03/19/23 03/19/23 03/18/23 History tablet,extended release amlodipine 5 mg tablet 10 mg (2 x 5 mg) PO DAILY #90 tabs 03/20/23 Unknown Rx atorvastatin 40 mg tablet 40 mg PO BEDTIME #90 tabs 03/20/23 Unknown Rx calamine 8 %-zinc oxide 8 % lotion 1 applic topical Q4H PRN Itching 03/20/23 Unknown Rx #177 mL cefpodoxime 200 mg tablet 200 mg PO BID #10 tabs 03/20/23 Unknown Rx cyanocobalamin (vitamin B-12) 1,000 mcg PO DAILY #120 caps 03/20/23 Unknown Rx 1,000 mcg capsule gabapentin 100 mg capsule 100 mg PO DAILY #30 caps 03/20/23 Unknown Rx insulin glargine 100 unit/mL 25 unit (0.25 mL) SUBCUT BID #10 mL 03/20/23 Unknown Rx subcutaneous solution insulin lispro 100 unit/mL See Rx Instructions .Route 03/20/23 Unknown Rx subcutaneous pen (Humalog KwikPen .COMPLEX #15 mL (U-100) Insulin) lisinopril 20 mg tablet 20 mg PO DAILY #90 tabs 03/20/23 Unknown Rx metformin 1,000 mg tablet 500 mg (1/2 x 1,000 mg) PO BID 03/20/23 Unknown Rx #120 tabs metoprolol tartrate 25 mg tablet 25 mg PO BID@0900,2100 #120 tabs 03/20/23 Unknown Rx hydrocodone 5 mg-acetaminophen 325 1 tab PO Q6H PRN pain #14 tabs 12/16/23 Unknown Rx mg tablet sulfamethoxazole 800 1 tab PO BID #14 tabs 12/16/23 Unknown Rx mg-trimethoprim 160 mg tablet (Bactrim DS) Allergies Allergy/AdvReac Type Severity Reaction Status Date / Time ampicillin Allergy unknown Verified 04/11/22 14:36 buspirone Allergy Unknown Verified 04/11/22 14:36 epinephrine Allergy has 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 pregabalin Allergy Unknown Verified 04/11/22 14:36 PFSH Acute PFSH: Medical History Pseudohyponatremia Noncompliance Weakness of lower extremity Radiculopathy due to lumbar intervertebral disc disorder Hyperlipidemia Hyperkalemia Uncontrolled type 2 diabetes mellitus UTI (urinary tract infection) Hyperglycemia GERD (gastroesophageal reflux disease) Vitamin B12 deficiency Hx of Sia disease Chronic low back pain Hypertension Diabetes mellitus Canvas syndrome Encounter for long-term opiate analgesic use Low back pain of over 3 months duration Opioid contract exists Insomnia due to medical condition Surgical History H/O melanoma excision LL - 2015 Hx of hysterectomy Hx of eye surgery right eye age 5 Family History Father Cancer Heart disease mother Sister Suicide Son Autism Social History Smoking and tobacco/nicotine status: never used tobacco/nicotine Second hand smoke exposure: No Alcohol intake: never Substance/Drug Use: never Caregiver/support person: Yes Lives independently: Yes Household members: children Housing: Apartment Marital status: Current occupational status: unemployed Current gender identity: Female Vitals/I&O/Wt Last Vital Signs Temp 98.2 F 01/04/24 13:48 Pulse 95 01/04/24 14:00 Resp 16 01/04/24 14:00 BP 136/70 01/04/24 14:00 Pulse Ox 93 01/04/24 14:00 O2 Del Method Room Air 01/04/24 14:00 Weight last 48 hrs Weight 180 lb Physical Exam Narrative: GENERAL: Patient is alert, awake and oriented x3. [] NECK: No jugular vein distension. [] HEENT: No cyanosis. No icterus. No pallor. [] HEART: Regular S1 and S2. LUNGS: Diminished air entry bilaterally. CENTRAL NERVOUS SYSTEM: Grossly nonfocal. [] EXTREMITIES: Has wounds on both feet. Data 01/04/24 13:50 01/04/24 13:50 A&P Assessment and plan (1) ST elevation (STEMI) myocardial infarction: (2) Diabetes mellitus: Qualifiers: Diabetes mellitus type: type 2 Diabetes mellitus superintendent container terminal insulin use: without care home use Diabetes mellitus complication status: with hyperglycemia Qualified Code(s): E11.65 - Type 2 diabetes mellitus with hyperglycemia Plan Patient has presented with ST elevation MA however presentation is late as symptoms have been going on for 2 days. Is still having chest pain and has ST elevations in inferior and anterior leads, we will proceed with emergent cardiac catheterization with possible PCI. Aspirin, Plavix load given. Heparin bolus was administered. We will consult medicine team for management of medical issues Order echocardiogram Attestations Medical Necessity Statement*: Care expected to cross 2 midnights. Patient has presented late with STEMI and going for emergent cardiac catheterization. Coding Level of Care Code Acute Code for [facility] Fwd Diagnoses ST elevation (STEMI) myocardial infarction I21.3 Type 2 diabetes mellitus with hyperglycemia, without long-term current use of insulin E11.65 Diabetes mellitus type: type 2 Diabetes mellitus care home insulin use: without care home use Diabetes mellitus complication status: with hyperglycemia
[2024-01-04 14:24] LABS: Alanine Aminotransferase 39 U/L (0-33); Albumin Level 3.9 g/dL (3.5-5.2); Alkaline Phosphatase 78 U/L (35-105); Anion Gap 15.7 (5-19); Aspartate Amino Transferase 91 U/L (0-32); Blood Urea Nitrogen 20 mg/dL (8-23); Calcium 10.4 mg/dL (8.5-10.5); Carbon Dioxide 24 mmol/L (22-29); Chloride 93 mmol/L (98-107); Creatinine Clr Calc Pharmacy 101.2942; Globulin 2.7 g/dL (1.3-4.6); Glucose 370 mg/dL (65-115); Lipase 10 U/L (13-60); Osmolality Calculated 284 mOsm/kg (285-295); Potassium 4.7 mmol/L (3.5-5.1); Sodium 128 mmol/L (136-145); Total Protein 6.6 g/dL (6.6-8.7)
[2024-01-04 14:35] LABS: INR 0.99 (0.8-1.2)
[2024-01-04 14:40] LABS: Troponin(5th) Baseline 2884 ng/L (0-10)
--- NOTE | 2024-01-04 15:50 | P.CONIM_ITS ---
Providers/Reason For Consult 2 Consulting Physician/Specialty*: Hospitalist Reason for Consult*: Postoperative medical comorbid conditions Attending Physician: Alek Parks M.D History of Present Illness History of Present Illness Yuri Ribera is a 63 year old female status post stent in RCA, going for staged procedure for ramus and LAD with Dr. Harvey hospitalist service consulted for medical management after STEMI alert, patient has history of diabetes uncontrolled, Rochester's, hypertension, not very mobile at baseline. At the time of evaluation patient stating that at baseline she is bedbound, she was using wheelchair for ambulation secondary to muscle weakness and Sia's she has become bedbound these days, lives with her children who live upstairs and she is in the lower portion of the house stating that they were looking for retirement for her. Patient is full code No active chest pain at the time evaluation Patient does not take steroids on daily basis. She is diabetic. I consulted podiatry to take a look at her diabetic and venous stasis ulcer. She also had left toenail avulsion Patient was evaluated by podiatry right away, patient currently on 2 L, does not use oxygen at baseline Review of Systems 2 Const: Denies: fever(s) Eyes: Denies: change in vision ENMT: Denies: throat pain Card: Denies: chest pain Resp: Denies: dyspnea GI: Denies: abdominal pain : Denies: flank pain Medications/Allergies Home Medications Medication Instructions Recorded Confirmed Last Taken Type acetaminophen 650 mg 650 mg PO Q8H PRN Pain 03/19/23 03/19/23 03/18/23 History tablet,extended release amlodipine 5 mg tablet 10 mg (2 x 5 mg) PO DAILY #90 tabs 03/20/23 Unknown Rx atorvastatin 40 mg tablet 40 mg PO BEDTIME #90 tabs 03/20/23 Unknown Rx calamine 8 %-zinc oxide 8 % lotion 1 applic topical Q4H PRN Itching 03/20/23 Unknown Rx #177 mL cefpodoxime 200 mg tablet 200 mg PO BID #10 tabs 03/20/23 Unknown Rx cyanocobalamin (vitamin B-12) 1,000 mcg PO DAILY #120 caps 03/20/23 Unknown Rx 1,000 mcg capsule gabapentin 100 mg capsule 100 mg PO DAILY #30 caps 03/20/23 Unknown Rx insulin glargine 100 unit/mL 25 unit (0.25 mL) SUBCUT BID #10 mL 03/20/23 Unknown Rx subcutaneous solution insulin lispro 100 unit/mL See Rx Instructions .Route 03/20/23 Unknown Rx subcutaneous pen (Humalog KwikPen .COMPLEX #15 mL (U-100) Insulin) lisinopril 20 mg tablet 20 mg PO DAILY #90 tabs 03/20/23 Unknown Rx metformin 1,000 mg tablet 500 mg (1/2 x 1,000 mg) PO BID 03/20/23 Unknown Rx #120 tabs metoprolol tartrate 25 mg tablet 25 mg PO BID@0900,2100 #120 tabs 03/20/23 Unknown Rx hydrocodone 5 mg-acetaminophen 325 1 tab PO Q6H PRN pain #14 tabs 12/16/23 Unknown Rx mg tablet sulfamethoxazole 800 1 tab PO BID #14 tabs 12/16/23 Unknown Rx mg-trimethoprim 160 mg tablet (Bactrim DS) Allergies Allergy/AdvReac Type Severity Reaction Status Date / Time ampicillin Allergy unknown Verified 04/11/22 14:36 buspirone Allergy Unknown Verified 04/11/22 14:36 epinephrine Allergy has 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 pregabalin Allergy Unknown Verified 04/11/22 14:36 PFSH Acute 2 PFSH: Medical History Pseudohyponatremia Noncompliance Weakness of lower extremity Radiculopathy due to lumbar intervertebral disc disorder Hyperlipidemia Hyperkalemia Uncontrolled type 2 diabetes mellitus UTI (urinary tract infection) Hyperglycemia GERD (gastroesophageal reflux disease) Vitamin B12 deficiency Hx of Rochester disease Chronic low back pain Hypertension Diabetes mellitus Rochester syndrome Encounter for long-term opiate analgesic use Low back pain of over 3 months duration Opioid contract exists Insomnia due to medical condition Surgical History H/O melanoma excision LL - 2015 Hx of hysterectomy Hx of eye surgery right eye age 5 Family History Father Cancer Heart disease mother Sister Suicide Son Autism Social History Smoking and tobacco/nicotine status: never used tobacco/nicotine Second hand smoke exposure: No Alcohol intake: never Substance/Drug Use: never Caregiver/support person: Yes Lives independently: Yes Household members: children Housing: Apartment Marital status: Current occupational status: unemployed Current gender identity: Female Vitals/I&O/Wt Last Vital Signs Temp 98.2 F 01/04/24 13:48 Pulse 95 01/04/24 14:00 Resp 16 01/04/24 14:00 BP 136/70 01/04/24 14:00 Pulse Ox 93 01/04/24 14:00 O2 Del Method Room Air 01/04/24 14:00 Weight last 48 hrs Weight 81.647 kg Physical Exam 2 Narrative: Hemodynamically stable GCS 15 Active sign of congestive heart failure Venous stasis ulcer on right foot Avulsion of left toenail Currently on 2 L No active respiratory distress No active chest pain Pleasant and cooperative Abdomen soft Awake and alert Nonfocal neuroexam Data 01/04/24 13:50 01/04/24 13:50 A&P Assessment and plan (1) Anxiety: (2) ST elevation (STEMI) myocardial infarction: (3) Diabetes mellitus: Qualifiers: Diabetes mellitus type: type 2 Diabetes mellitus longterm insulin use: without longterm use Diabetes mellitus complication status: with hyperglycemia Qualified Code(s): E11.65 - Type 2 diabetes mellitus with hyperglycemia (4) Insomnia due to medical condition: Plan STEMI status post RCA intervention, planning for staged elective procedure for LAD lesion Patient is diabetic with multivessel disease not a good candidate for CABG No active chest pain Optimize antianginal Cardiology will dictate most of her antianginal medications For now I am giving her aspirin and Plavix dual antiplatelet therapy along with statins Keeping her on cardiac consistent carb diet adding Lantus and sliding scale Add albuterol regimen Patient is hemodynamically stable no signs of addisonian crisis, blood pressure stable Acute hypoxia related to hypoventilation after dental laboratory technology teacher, wean off oxygen to room air Disposition: Long-term plan: FDC placement Consult Attestations 2 Medical Necessity Statement: As per cardio Diagnoses Anxiety F41.9 ST elevation (STEMI) myocardial infarction I21.3 Type 2 diabetes mellitus with hyperglycemia, without long-term current use of insulin E11.65 Diabetes mellitus type: type 2 Diabetes mellitus longterm insulin use: without longterm use Diabetes mellitus complication status: with hyperglycemia Insomnia due to medical condition G47.01
--- NOTE | 2024-01-04 15:53 | ECG_ITS ---
[facility] Test Date: 2024-01-04 Pat Name: Yuri Ribera Department: Room: 105 Gender: Female Faculty Instructor: : 1960 Requested By: Jessica Wells Order Number: [id number] Arben MD: Madhavi Munguia M.D. Measurements Intervals [place] Rate: 78 P: 53 TN: 231 QRS: 15 QRSD: 85 T: -33 QT: 386 QTc: 440 Interpretive Statements SINUS RHYTHM WITH FIRST DEGREE AV BLOCK WITH FREQUENT SUPRAVENTRICULAR PREMATURE COMPLEXES POSSIBLE LEFT ATRIAL ENLARGEMENT [-0.1mV P-WAVE IN V1/V2] INFERIOR MYOCARDIAL INFARCTION , PROBABLY RECENT [40+ ms Q WAVE AND/OR ST/T ABNORMALITY IN II/aVF] MARKED ST ELEVATION, CONSIDER ANTERIOR INJURY [MARKED ST ELEVATION W/O NORMALLY INFLECTED T-WAVE IN V2-V5] ACUTE OR Compared to ECG 01/04/2024 13:42:13 No significant changes Electronically Signed On 01-04-2024 18:10:34 CDT by Madhavi Munguia M.D. [id number]
--- NOTE | 2024-01-04 16:05 | USCV_ITS ---
Yuri Ribera Age: 63 Gender: F : 1960 Exam Date: 01/04/2024 22:12 Ordering Phys: Alek Parks M.D ([email or web address]) Technologist: DAVID [place] [facility] [place]: Post STEMI, Post cardiac cath. BP: 107 / 71 HR: 54 Rhythm: Sinus bradycardia Technical Quality: Adequate MEASUREMENTS (Male / Female) Normal Values 2D ECHO LV Diastolic Diameter PLAX 3.8 cm 4.2 - 5.9 / 3.9 - 5.3 cm IVS Diastolic Thickness 1.4 cm 0.6 - 1.0 / 0.6 - 0.9 cm IVS Systolic Thickness 1.7 cm LVPW Diastolic Thickness 1.3 cm 0.6 - 1.0 / 0.6 - 0.9 cm LVPW Systolic Thickness 1.5 cm LVOT Diameter 1.6 cm LV Ejection Fraction 2D Teich 56.2 % LV Ejection Fraction MOD 2C 43.8 % LV Ejection Fraction 2C AL 45.7 % LA Diameter 3.7 cm LA Sys Volume AL 36.3 cm cubed LA Sys Volume Index AL 15.0 cm cubed/m squared Aorta at Sinotubular Diameter 2.7 cm IVC Diameter 1.7 cm M-MODE LA Ao Ratio MM 1.5 AV Cusp Separation MM 1.7 cm DOPPLER AV Peak Velocity 137.0 cm/s LVOT Peak Velocity 91.0 cm/s AV Area Cont Eq vti 1.3 cm squared AV Area Cont Eq pk 1.4 cm squared MV Area PHT 3.9 cm squared Mitral E to A Ratio 1.3 TV Peak Velocity 189.0 cm/s TR Peak Velocity 207.0 cm/s TR Peak Gradient 17.1 mmHg TV Peak E Velocity 47.0 cm/s Right Atrial Pressure 3.0 mmHg Pulmonary Artery Systolic Pressu 20.1 mmHg PV Peak Velocity 85.0 cm/s FINDINGS Left Ventricle Left ventricle is normal size. Overall LV systolic function is normal with EF of 55-60%. Moderate to severe hypokinesis of inferior and inferolateral frances. Right Ventricle RV is moderately hypokinetic Right Atrium Normal in size Left Atrium Dilated Mitral Valve Structurally normal mitral valve. Moderate mitral regurgitation Aortic Valve Aortic valve is thickened and calcified. No significant stenosis or regurgitation. Tricuspid Valve Trace tricuspid regurgitation. Pulmonary artery systolic pressure is normal. Pulmonic Valve Mild pulmonic regurgitation. Pericardium Normal Aorta Normal in size IVC Appears to be normal CONCLUSIONS LV systolic function is normal with EF of 55 to 60%. Above- mentioned regional wall motion abnormalities. RV is moderately hypokinetic. Left atrial dilation Moderate mitral regurgitation. Trace tricuspid regurgitation Mild pulmonic regurgitation Alek Parks MD (Electronically Signed) Final Date: 05 Jan 2024 11:56 S
[2024-01-04 16:30] LABS: Glucose Point of Care 351 mg/dL (70-110)
--- NOTE | 2024-01-04 16:40 | P.MISC_ITS ---
Miscellaneous Note Purpose of Documentation: Brief procedure note Note: Patient had total thrombotic occlusion of mid RCA and underwent successful revascularization of with 1 stent. Also had critical PDA lesion and underwent successful revascularization with 1 stent Has multivessel CAD with severe proximal LAD, severe proximal ramus artery and diffuse, severe disease in the left circumflex artery. Had heart team discussion with CT surgery team at [facility] (Dr Kerr), and given patient's limited mobility, poorly controlled diabetes and now ST elevation OR. Patient likely has severely reduced LV systolic function. We will obtain echocardiogram Staged PCI of LAD and ramus artery in 1-2 days based on patient's clinical progress. Has some pleuritic chest pain. Can be secondary to post OR pericarditis as had a delayed presentation. initial troponin is over 2800.
[2024-01-04 16:49] LABS: Troponin 5 2HR Delta -465 ABS# (0-10)
[2024-01-04 16:50] LABS: Troponin 5 2HR 2419 ng/L (0-10)
--- NOTE | 2024-01-04 16:53 | P.CONIM_ITS ---
Providers/Reason For Consult 2 Consulting Physician/Specialty*: Rafaela MendozaPRajesh/podiatry Reason for Consult*: Diabetic ulcer right foot, traumatic nail avulsion left foot Attending Physician: Alek Parks M.D History of Present Illness History of Present Illness Yuri Ribera is a 63 year old female who presented to the emergency department today 01/04/2024 with complaint of chest pain over the past 2 days. Workup in the emergency department revealed STEMI myocardial infarction. Patient underwent RCA revascularization. Patient was then returned to cardiac stepdown unit. Hospitalist noticed right foot ulceration upon workup as well as traumatic nail avulsion to left foot. Podiatry was consulted provide further recommendations and treatment. In discussion with the patient, she states that the wound on her right foot has been present on and off over the course of the past 10 years. She also states that this morning when she was leaving her house she stubbed her left toe when it was dark. She did not realize the extent of it until she got to the hospital and noticed when she was bleeding. Review of Systems 2 General: Reports: 10 or more systems reviewed and unremarkable except in HPI and below Const: Denies: fever(s), chills, body aches or change in appetite Eyes: Denies: change in vision or blurry vision Card: Denies: chest pain, palpitations or irregular heart rhythm Resp: Denies: dyspnea GI: Denies: abdominal pain, nausea, vomiting or diarrhea Musc: Reports: joint stiffness Skin/Breast: Reports: non-healing lesions and lesions Neuro: Reports: numbness in extremities Medications/Allergies Home Medications Medication Instructions Recorded Confirmed Last Taken Type acetaminophen 650 mg 650 mg PO Q8H PRN Pain 03/19/23 03/19/23 03/18/23 History tablet,extended release amlodipine 5 mg tablet 10 mg (2 x 5 mg) PO DAILY #90 tabs 03/20/23 Unknown Rx atorvastatin 40 mg tablet 40 mg PO BEDTIME #90 tabs 03/20/23 Unknown Rx calamine 8 %-zinc oxide 8 % lotion 1 applic topical Q4H PRN Itching 03/20/23 Unknown Rx #177 mL cefpodoxime 200 mg tablet 200 mg PO BID #10 tabs 03/20/23 Unknown Rx cyanocobalamin (vitamin B-12) 1,000 mcg PO DAILY #120 caps 03/20/23 Unknown Rx 1,000 mcg capsule gabapentin 100 mg capsule 100 mg PO DAILY #30 caps 03/20/23 Unknown Rx insulin glargine 100 unit/mL 25 unit (0.25 mL) SUBCUT BID #10 mL 03/20/23 Unknown Rx subcutaneous solution insulin lispro 100 unit/mL See Rx Instructions .Route 03/20/23 Unknown Rx subcutaneous pen (Humalog KwikPen .COMPLEX #15 mL (U-100) Insulin) lisinopril 20 mg tablet 20 mg PO DAILY #90 tabs 03/20/23 Unknown Rx metformin 1,000 mg tablet 500 mg (1/2 x 1,000 mg) PO BID 03/20/23 Unknown Rx #120 tabs metoprolol tartrate 25 mg tablet 25 mg PO BID@0900,2100 #120 tabs 03/20/23 Unknown Rx hydrocodone 5 mg-acetaminophen 325 1 tab PO Q6H PRN pain #14 tabs 12/16/23 Unknown Rx mg tablet sulfamethoxazole 800 1 tab PO BID #14 tabs 12/16/23 Unknown Rx mg-trimethoprim 160 mg tablet (Bactrim DS) Allergies Allergy/AdvReac Type Severity Reaction Status Date / Time ampicillin Allergy unknown Verified 04/11/22 14:36 buspirone Allergy Unknown Verified 04/11/22 14:36 epinephrine Allergy has 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 pregabalin Allergy Unknown Verified 04/11/22 14:36 PFSH Acute 2 PFSH: Medical History Pseudohyponatremia Noncompliance Weakness of lower extremity Radiculopathy due to lumbar intervertebral disc disorder Hyperlipidemia Hyperkalemia Uncontrolled type 2 diabetes mellitus UTI (urinary tract infection) Hyperglycemia GERD (gastroesophageal reflux disease) Vitamin B12 deficiency Hx of Riverside disease Chronic low back pain Hypertension Diabetes mellitus Riverside syndrome Encounter for long-term opiate analgesic use Low back pain of over 3 months duration Opioid contract exists Insomnia due to medical condition Surgical History H/O melanoma excision LLE - 2015 Hx of hysterectomy Hx of eye surgery right eye age 5 Family History Father Cancer Heart disease mother Sister Suicide Son Autism Social History Smoking and tobacco/nicotine status: never used tobacco/nicotine Second hand smoke exposure: No Alcohol intake: never Substance/Drug Use: never Caregiver/support person: Yes Lives independently: Yes Household members: children Housing: Apartment Marital status: Current occupational status: unemployed Current gender identity: Female Vitals/I&O/Wt Last Vital Signs Temp 98.1 F 01/04/24 16:04 Pulse 79 01/04/24 16:06 Resp 18 01/04/24 16:06 BP 107/71 01/04/24 16:04 Pulse Ox 100 01/04/24 16:06 O2 Del Method Nasal Cannula 01/04/24 16:06 O2 Flow Rate 2 01/04/24 16:06 Weight last 48 hrs Weight 180 lb Physical Exam 2 Narrative: BELOW IS A FOCUSED LOWER EXTREMITY EXAM GENERAL: A&O x 3 VASCULAR: DP/PT pulses palpable 2/4 with CFT intact, <3seconds to distal digits DERMATOLOGICAL: Skin turgor and temperature is within normal limits. No interdigital maceration noted. Large patch of dry heme on dorsal aspect of right foot, eschar not adhered. Lifting of the eschar revealed small underlying ulceration measuring 0.8 x 0.7 x 0.1 cm. No surrounding erythema. No active drainage. Negative probe to bone. Left hallux nail shows lysis with dry heme. No open lacerations. Negative probe to bone. MUSCULOSKELETAL: Tenderness with palpation of left hallux nail plate. No pain with palpation of the right foot dorsal wound or periwound area NEUROLOGICAL: Neurological sensation to the affected foot and ankle is present through L4-S1 dermatomes with no hyper/hypoesthesias, negative Tinel or Valleix's sign Data 01/04/24 13:50 01/04/24 13:50 A&P Assessment and plan (1) Onycholysis of toenail: (2) Ulcer of right foot with fat layer exposed: (3) Diabetes mellitus: Qualifiers: Diabetes mellitus type: type 2 Diabetes mellitus meterman insulin use: without meterman use Diabetes mellitus complication status: with hyperglycemia Qualified Code(s): E11.65 - Type 2 diabetes mellitus with hyperglycemia Plan -Dorsal right foot ulceration, stable left hallux traumatic nail avulsion stable -Labs and vitals reviewed -WBC 17.14 -VSS -Diet: Okay for diet from podiatry standpoint -Bilateral wounds assessed. No surgical intervention warranted. Dry Heema right foot was removed at bedside without incident. Left hallux nail was debrided back to reveal no underlying wound. All remaining nails were mechanically debrided with sterile nippers without incident. -Pain Mgmt: Per hospitalist -Weight bearing: Weightbearing as tolerated -Dressings: Right foot dorsal wound dressed with OpSite and triple antibiotic ointment. Recommend daily dressing change. Left hallux avulsion site dressed with triple antibiotic ointment Adaptic, 2 x 2 gauze and Coban. Recommend dressing change every other day -Continue current Abx therapy until ID and Sensitivity results -Trend labs -Discharge plan: Okay to discharge from podiatry standpoint. No surgical intervention warranted from podiatry standpoint at this time. Recommend follow- up in podiatry clinic within 2 weeks of discharge from hospital. -Podiatry will sign off. Please reconsult if needed. Coding Level of Care Code Acute Code for Chg Fwd Diagnoses Onycholysis of toenail L60.1 Ulcer of right foot with fat layer exposed L97.512 Type 2 diabetes mellitus with hyperglycemia, without long-term current use of insulin E11.65 Diabetes mellitus type: type 2 Diabetes mellitus meterman insulin use: without prison use Diabetes mellitus complication status: with hyperglycemia
[2024-01-04] MEDS: doxycycline 100 mg Tablet PO (17:52)
[2024-01-04] MEDS: pantoprazole 40 mg SDV IVP (17:52)
[2024-01-04] MEDS: insulin glargine 100 units/1 mL 25 UNIT SUBCUT (17:53)
--- NOTE | 2024-01-04 19:39 | ECG_ITS ---
[facility] Test Date: 2024-01-04 Pat Name: Yuri Ribera Department: Room: 105 Gender: Female Litigation Specialist: : 1960 Requested By: Jessica Wells Order Number: [id number] Arben MD: Alek Parks M.D. Measurements Intervals [place] Rate: 56 P: 61 NC: 244 QRS: 44 QRSD: 92 T: 32 QT: 412 QTc: 400 Interpretive Statements SINUS BRADYCARDIA WITH FIRST DEGREE AV BLOCK POSSIBLE LEFT ATRIAL ENLARGEMENT [-0.1mV P-WAVE IN V1/V2] INFERIOR MYOCARDIAL INFARCTION , POSSIBLY ACUTE [40+ ms Q WAVE AND/OR ST/T ABNORMALITY IN II/aVF] ST ELEVATION, CONSIDER ANTEROLATERAL INJURY [MARKED ST ELEVATION W/O NORMALLY INFLECTED T-WAVE IN V3-V6] ACUTE PR Compared to ECG 01/04/2024 15:53:39 Sinus rhythm no longer present Myocardial infarct finding still present ST (T wave) deviation still present Electronically Signed On 01-05-2024 17:52:50 CDT by Alek Parks M.D. [id number]
[2024-01-04] MEDS: morphine IR 15 mg Tablet PO (19:48)
[2024-01-04] MEDS: neomycin-poly-bacitracin oint 28 gm 1 APPLIC TOPICAL (20:28)
[2024-01-04 20:37] LABS: Glucose Point of Care 422 mg/dL (70-110)
[2024-01-04 21:04] LABS: Troponin 5 6HR 7990 ng/L (0-10); Troponin 5 6HR Delta 5106 ng/L (0-12)
--- NOTE | 2024-01-04 21:14 | PC.NURSE ---
Critical Troponin Patient's 6 hr troponin and 6hr delta results came back critical at 7990 and 5106 respectively. Patient care nurse CLEMENCIA Moran and charge nurse CLEMENCIA Brower notified. Message sent to Dr. Parks.
[2024-01-04] MEDS: insulin lispro 100 unit/1 mL SUBCUT (22:00)
[2024-01-05] VITALS (33 sets, daily range): BP systolic 80–117; BP diastolic 44–68; PULSE 51–67; RESP 8–21; TEMP 36.3–37.2; O2SAT 93–100
[2024-01-05 04:26] LABS: Basophils % 0.1 %; Eosinophils % 0.1 %; Hematocrit 33.2 % (36-47); Lymphocytes # 2.1 10^3/uL (0.8-4.8); Mean Corpuscular Hemoglobin 30.8 pg (27-33); Mean Corpuscular Volume 90.5 fl (85-98); Mean Platelet Volume 10.3 fL (7.4-10.4); Monocytes # 1.7 10^3/uL (0.2-0.9); Neutrophils # 10.04 10^3/uL (1.8-7.7); Neutrophils % 72.2 %; Nucleated Red Blood Cells % 0 %; Platelet Count 279 10^3/cmm (157-399); Red Blood Count 3.67 10^6/uL (3.85-5.65); Red Cell Distribution Width 12.4 % (12.1-15.1)
[2024-01-05 04:54] LABS: Anion Gap 15.3 (5-19); Blood Urea Nitrogen 23 mg/dL (8-23); C Reactive Protein 172.3 mg/L (0.0-4.9); Calcium 9.9 mg/dL (8.5-10.5); Carbon Dioxide 23 mmol/L (22-29); Chloride 96 mmol/L (98-107); Creatinine Clr Calc Pharmacy 101.2942; Glucose 227 mg/dL (65-115); Osmolality Calculated 281 mOsm/kg (285-295); Potassium 4.3 mmol/L (3.5-5.1); Sodium 130 mmol/L (136-145)
[2024-01-05 06:25] LABS: Glucose Point of Care 258 mg/dL (70-110)
[2024-01-05] MEDS: pantoprazole 40 mg SDV IVP ×2 (08:51→17:11)
[2024-01-05] MEDS: morphine IR 15 mg Tablet PO ×2 (08:54→17:11)
[2024-01-05] MEDS: lisinopril 10 mg Tablet PO (08:54)
[2024-01-05] MEDS: sennosides-docusate Tablet 1 TAB PO (08:54)
[2024-01-05] MEDS: metoprolol tartrate 25 mg Tablet PO (08:55)
[2024-01-05] MEDS: insulin lispro 100 unit/1 mL SUBCUT ×3 (08:55→22:03)
[2024-01-05] MEDS: doxycycline 100 mg Tablet PO ×2 (08:55→17:11)
[2024-01-05] MEDS: clopidogrel 75 mg Tablet PO (08:55)
[2024-01-05] MEDS: atorvastatin 40 mg Tablet 80 MG PO (08:55)
[2024-01-05] MEDS: aspirin 81 mg EC Tablet PO (08:55)
[2024-01-05] MEDS: gabapentin 100 mg Capsule PO (08:55)
[2024-01-05] MEDS: insulin glargine 100 units/1 mL 25 UNIT SUBCUT (08:56)
[2024-01-05] MEDS: neomycin-poly-bacitracin oint 28 gm 1 APPLIC TOPICAL ×2 (08:56→20:08)
--- NOTE | 2024-01-05 09:55 | PC.CHAP ---
Pastoral Care Encounter/Spiritual Assessment Type of Contact [] Declined marketing editor visit [] Patient/Family/Request visit [] Outpatient visit [] Follow-up visit [] Physician referral [] Code/Alert [x] Routine visit [] Staff referral [] Actively dying [] Patient sleeping [] Family support [] [] Out of room [] Palliative care [] [] Receiving care in room [] Pre-surgical visit [] Trauma [] Long length of stay [] ICU visit [] Other: Relational/Emotional Strength [x] Patient feels connected with others/family/visitors/staff [] Distress [] Loneliness/isolation [] Abandonment Spirituality of Patient [x] Person of Emily [] Attends Confucianist of their Emily [x] Believes in Prayer [] Reads Bible or Jain materials [] There are Spiritual issues to be addressed Floor Hand Interventions [x] Prayer [x] Active listening [] Non-anxious presence [x] Spiritual/emotional support [] Crisis/trauma care [] Spiritual counseling [] Bereavement support [] Provided bereavement packet [] Provided Bible/devotional materials [] Provided toy/stuffed animal, coloring book to patient or family member [] Provided Communion [] Anointing/Branch [] Salvation [x] Completed spiritual assessment [] Other: Impact on Illness or Injury [] Angry [] Fearful [] Anxious [] Often cries [] Exhaustion [] Unable to work [] Unable to attend scientology [] Unable to walk/stand [] Unable to read [] Unable to drive [] Unable to eat/drink [] Unable to sleep [] Unable to be with family [] Patient intubated [] Other: Summary Time spent with patient 5 min
--- NOTE | 2024-01-05 10:08 | P.PN_ITS ---
Subjective 2 Subjective: No significant overnight events Patient is hyperglycemic Adjust insulin regimen Afebrile Bradycardia noted Awaiting staged angiogram Patient is sitting at the bedside Wanting to use a bedside commode Number chest pain Currently on 3 L manager integrity/estate planner updated to start working on retirement placement for her Vitals/I&O/Wt Last Vital Signs Temp 97.6 F 01/05/24 07:14 Pulse 57 L 01/05/24 07:52 Resp 17 01/05/24 08:54 BP 110/61 01/05/24 07:14 Pulse Ox 98 01/05/24 07:52 O2 Del Method Nasal Cannula 01/05/24 07:52 O2 Flow Rate 3 01/05/24 07:52 01/04/24 01/05/24 01/05/24 22:59 06:59 14:59 Output Total 450 / 450 Balance -450 / -450 Weight last 48 hrs Weight 79.209 kg Weight 81.647 kg Weight 81.647 kg Physical Exam 2 Narrative: Right foot covered with dressing Left toenail involved Signs of fluid overload Sitting at the bedside Currently on 2 L Awake and alert Nonfocal neuroexam Fatigue oncology Myalgias Pleasant cooperative S1, S2 variable Data 01/05/24 03:13 01/05/24 03:13 A&P Assessment and plan (1) Anxiety: (2) ST elevation (STEMI) myocardial infarction: (3) Diabetes mellitus: Qualifiers: Diabetes mellitus type: type 2 Diabetes mellitus shelter insulin use: without rodent exterminator use Diabetes mellitus complication status: with hyperglycemia Qualified Code(s): E11.65 - Type 2 diabetes mellitus with hyperglycemia (4) Low back pain of over 3 months duration: (5) Ulcer of right foot with fat layer exposed: (6) Insomnia due to medical condition: (7) Onycholysis of toenail: Plan Awaiting staged angiogram Hyperglycemia adjust insulin regimen Patient is bradycardic, hold metoprolol Currently on consistent carb diet Continue aspirin, Plavix, atorvastatin's along p.o. doxycycline and topical antibiotic for her venous stasis ulcer with underlying diabetes . Disposition: custodial placement, estate planner notified. Recommend daily dressing change. Left hallux avulsion site dressed with triple antibiotic ointment Adaptic, 2 x 2 gauze and Coban. Recommend dressing change every other day Attestations 2 Medical Necessity Statement*: Awaiting staged angiogram Diagnoses Anxiety F41.9 ST elevation (STEMI) myocardial infarction I21.3 Type 2 diabetes mellitus with hyperglycemia, without long-term current use of insulin E11.65 Diabetes mellitus type: type 2 Diabetes mellitus rodent exterminator insulin use: without rodent exterminator use Diabetes mellitus complication status: with hyperglycemia Low back pain of over 3 months duration M54.5 Ulcer of right foot with fat layer exposed L97.512 Insomnia due to medical condition G47.01 Onycholysis of toenail L60.1
--- NOTE | 2024-01-05 11:30 | PM.PN ---
Subjective Subjective: Patient has chronic back pain. Doing female and her blood pressure started dropping. Patient started having nausea. Symptoms consistent with right heart failure. Vitals/I&O/Wt Last Vital Signs Temp 97.6 F 01/05/24 07:14 Pulse 57 L 01/05/24 07:52 Resp 17 01/05/24 08:54 BP 110/61 01/05/24 07:14 Pulse Ox 98 01/05/24 07:52 O2 Del Method Nasal Cannula 01/05/24 07:52 O2 Flow Rate 3 01/05/24 07:52 01/04/24 01/05/24 01/05/24 22:59 06:59 14:59 Output Total 450 / 450 Balance -450 / -450 Weight last 48 hrs Weight 174 lb 10 oz Weight 180 lb Weight 180 lb Physical Exam Narrative: GENERAL: Patient is alert, awake and oriented x3. [] NECK: No jugular vein distension. [] HEENT: No cyanosis. No icterus. No pallor. [] HEART: Regular S1 and S2. LUNGS: Diminished air entry bilaterally. CENTRAL NERVOUS SYSTEM: Grossly nonfocal. [] EXTREMITIES: Has wounds on both feet. Data 01/06/24 04:37 01/06/24 04:37 A&P Assessment and plan (1) ST elevation (STEMI) myocardial infarction: (2) Diabetes mellitus: Qualifiers: Diabetes mellitus type: type 2 Diabetes mellitus fpc insulin use: without fpc use Diabetes mellitus complication status: with hyperglycemia Qualified Code(s): E11.65 - Type 2 diabetes mellitus with hyperglycemia (3) RVF (right ventricular failure): Plan Patient presented with ST elevation MS however presentation is late as symptoms have been going on for 2 days. Patient underwent successful revascularization of RCA and PDA with 2 stents. Also has multivessel disease. Plan for staged PCI of LAD and ramus artery CT surgery turned her down for CABG. Continue aspirin Plavix. Patient went into RV failure. We are hydrating her. Patient was transferred to ICU. Started on Levophed. Maintain maps above 65. Will start dobutamine once blood pressure is improved. Echo shows normal LV systolic function. RV is moderate to severely hypokinetic. Medicine team is on board. Patient has severe lower back pain which is chronic. Imaging for spine per medicine team recommendations. Attestations Medical Necessity Statement*: Care expected to cross 2 midnights. Coding Level of Care Code Acute Code for Chg Fwd Diagnoses ST elevation (STEMI) myocardial infarction I21.3 Type 2 diabetes mellitus with hyperglycemia, without long-term current use of insulin E11.65 Diabetes mellitus type: type 2 Diabetes mellitus fpc insulin use: without roasterman use Diabetes mellitus complication status: with hyperglycemia RVF (right ventricular failure) I50.810
[2024-01-05 12:07] LABS: Glucose Point of Care 285 mg/dL (70-110)
[2024-01-05] MEDS: HYDROcodone-acetaminophen 5-325 mg Tablet 1 TAB PO (12:35)
[2024-01-05] MEDS: ondansetron 2 mg/ML SDV 2 mL 4 MG IVP ×2 (12:36→17:11)
--- NOTE | 2024-01-05 13:59 | PC.OT ---
OT evaluation withheld this date, patient is throwing up. Nursing is aware of patient's condition
--- NOTE | 2024-01-05 14:44 | ECG_ITS ---
[facility] Test Date: 2024-01-05 Pat Name: Yuri Ribera Department: Room: 105 Gender: Female Mechanical Meter Tester: : 1960 Requested By: Alek Parks Order Number: [id number] Arben MD: Alek Parks M.D. Measurements Intervals [place] Rate: 64 P: 0 ID: 0 QRS: 11 QRSD: 100 T: 30 QT: 392 QTc: 405 Interpretive Statements High degree AV block INFERIOR MYOCARDIAL INFARCTION , POSSIBLY ACUTE [40+ ms Q WAVE AND/OR ST/T ABNORMALITY IN II/aVF] ANTEROSEPTAL MYOCARDIAL INFARCTION , OF INDETERMINATE AGE [40+ ms Q WAVE IN V1-V4] ACUTE [place] Compared to ECG 01/04/2024 21:10:10 Supraventricular rhythm now present Sinus bradycardia no longer present First degree AV block no longer present ST (T wave) deviation no longer present Myocardial infarct finding still present Electronically Signed On 01-05-2024 17:49:33 CDT by Alek Parks M.D. [id number]
--- NOTE | 2024-01-05 15:02 | PC.NURSE ---
Patient c/o persistent pain and nausea. Obtained EKG for possible 3rd degree block. Informed Dr Parks and received telephone order for troponin series. Informed patient's RN. Will continue to monitor.
--- NOTE | 2024-01-05 15:40 | USCV_ITS ---
Mounika Yuri Age: 63 Gender: F : 1960 Exam Date: 01/05/2024 18:05 Ordering Phys: Alek Parks M.D ([email or web address]) Technologist: DAVID Exam Location: [facility] [place] Indication: hypotensive and STEMI s/p Percutaneous Coronary Intervention BP: 80 / 44 HR: 60 Rhythm: Sinus Technical Quality: Adequate MEASUREMENTS (Male / Female) Normal Values 2D ECHO LV Diastolic Diameter PLAX 3.8 cm 4.2 - 5.9 / 3.9 - 5.3 cm IVS Diastolic Thickness 1.5 cm 0.6 - 1.0 / 0.6 - 0.9 cm IVS Systolic Thickness 2.4 cm LVPW Diastolic Thickness 0.9 cm 0.6 - 1.0 / 0.6 - 0.9 cm LVPW Systolic Thickness 1.1 cm LV Ejection Fraction 2D Teich 48.9 % LV Ejection Fraction MOD 2C 57.7 % LV Ejection Fraction 2C AL 59.6 % IVC Diameter 1.5 cm FINDINGS Left Ventricle Right Ventricle Right Atrium Left Atrium Mitral Valve Aortic Valve Tricuspid Valve Pulmonic Valve Pericardium Aorta IVC CONCLUSIONS This is a limited echocardiogram performed to assess LV systolic function and RV function. LV systolic function is overall normal with EF of 50 to 55%. RV is severely hypokinetic Alek Parks MD (Electronically Signed) Final Date: 06 Jan 2024 09:48 S
[2024-01-05 16:51] LABS: Troponin(5th) Baseline 7631 ng/L (0-10)
--- NOTE | 2024-01-05 17:00 | ECG_ITS ---
[facility] Test Date: 2024-01-05 Pat Name: Yuri Ribera Department: Room: 105 Gender: Female Tool Checker: : 1960 Requested By: Alek Parks Order Number: [id number] Arben MD: Alek Parks M.D. Measurements Intervals [place] Rate: 57 P: 0 SD: 0 QRS: 30 QRSD: 85 T: 39 QT: 403 QTc: 394 Interpretive Statements SINUS RHYTHM WITH HIGH GRADE AV BLOCK ANTEROSEPTAL MYOCARDIAL INFARCTION , OF INDETERMINATE AGE [40+ ms Q WAVE IN V1-V4] MARKED ST ELEVATION, CONSIDER INFERIOR INJURY [MARKED ST ELEVATION W/O NORMALLY INFLECTED T-WAVE IN II/aVF] ACUTE [place] Compared to ECG 01/05/2024 14:44:33 ST (T wave) deviation now present Supraventricular rhythm no longer present Myocardial infarct finding still present Electronically Signed On 01-05-2024 17:48:29 CDT by Alek Parks M.D. [id number]
[2024-01-05 17:02] LABS: Glucose Point of Care 177 mg/dL (70-110)
[2024-01-05] MEDS: sodium chloride 0.9% 250 ML IV (17:11)
[2024-01-05 17:49] LABS: Erythrocyte Sedimentation Rate 47 mm/hr (0-15)
[2024-01-05 18:05] LABS: Lactate (Lactic Acid level) 1.6 mmol/L (0.5-2.2)
[2024-01-05 18:07] LABS: C Reactive Protein 237.4 mg/L (0.0-4.9)
[2024-01-05 18:10] LABS: Troponin 5 2HR 7709 ng/L (0-10)
[2024-01-05 18:11] LABS: Troponin 5 2HR Delta 78 ABS# (0-10)
[2024-01-05] MEDS: norepinephrine 4 MG/250 ML BAG 7.5 MG IV (18:12)
[2024-01-05] MEDS: morphine 4 mg/mL SDV 1 mL 2 MG IVP (18:22)
--- NOTE | 2024-01-05 18:24 | PC.NURSE ---
To floor from CSU Patient is pale, moaning in back pain, monitor shows STEMI, BP 60s/40s. Dr. Rodriguez and Dr. Parks called and notified. Order for Levophed. Patient has pending workup for STEMI and is also being given pain medication for back pain.
[2024-01-05] MEDS: sodium chloride 0.9% 1,000 ML 75 ML IV (19:15)
[2024-01-05 19:56] LABS: Glucose Point of Care 241 mg/dL (70-110)
[2024-01-05] MEDS: insulin glargine 100 units/1 mL 30 UNIT SUBCUT (20:08)
--- NOTE | 2024-01-05 21:02 | ECG_ITS ---
[facility] Test Date: 2024-01-06 Pat Name: Yuri Ribera Department: Room: [facility]01 Gender: Female Gis Physical Scientist: : 1960 Requested By: Earle Montilla Order Number: [id number] Arben MD: Alek Parks M.D. Measurements Intervals [place] Rate: 80 P: 0 [place]: 0 QRS: 36 QRSD: 97 T: -19 QT: 357 QTc: 412 Interpretive Statements HIGH DEGREE AV BLOCK LOW QRS VOLTAGE IN PRECORDIAL LEADS [QRS DEFLECTION < 1.0 mV IN CHEST LEADS] INFERIOR MYOCARDIAL INFARCTION , PROBABLY RECENT [40+ ms Q WAVE AND/OR ST/T ABNORMALITY IN II/aVF] Compared to ECG 01/06/2024 11:20:20 No significant changes Electronically Signed On 01-06-2024 22:47:15 CDT by Alek Parks M.D. [id number]
--- NOTE | 2024-01-05 21:06 | ECG_ITS ---
[facility] Test Date: 2024-01-05 Pat Name: Yuri Ribera Department: Room: [facility]01 Gender: Female Maintenance Department Technician: : 1960 Requested By: Alek Parks Order Number: [id number] Arben MD: Alek Parks M.D. Measurements Intervals [place] Rate: 51 P: 0 [place]: 0 QRS: 32 QRSD: 84 T: 26 QT: 432 QTc: 399 Interpretive Statements COMPLETE HEART BLOCK INFERIOR MYOCARDIAL INFARCTION , POSSIBLY ACUTE [40+ ms Q WAVE AND/OR ST/T ABNORMALITY IN II/aVF] ST ELEVATION, CONSIDER ANTERIOR INJURY [MARKED ST ELEVATION W/O NORMALLY INFLECTED T-WAVE IN V2-V5] Compared to ECG 01/05/2024 17:19:12 Sinus rhythm no longer present Myocardial infarct finding still present ST (T wave) deviation still present Electronically Signed On 01-06-2024 16:29:38 CDT by Alek Parks M.D. [id number]
--- NOTE | 2024-01-05 21:20 | PC.NURSE ---
Low BP/EKG results: Notified Dr. Parks of most resent EKG and Low BP. New order to increase IV fluids from 75 to 100ml/hr. Double IV Fluid order noted, extra order cancelled.
[2024-01-05] MEDS: sodium chloride 0.9% 1,000 ML 100 ML IV (21:22)
[2024-01-05 21:41] LABS: Glucose Point of Care 228 mg/dL (70-110)
[2024-01-05 22:45] LABS: Troponin 5 6HR Delta -1111 ng/L (0-12)
[2024-01-05 22:46] LABS: Troponin 5 6HR 6520 ng/L (0-10)
[2024-01-06] VITALS (96 sets, daily range): BP systolic 71–140; BP diastolic 36–90; PULSE 45–82; RESP 10–31; TEMP 37.1–37.2; O2SAT 88–100
[2024-01-06] MEDS: HYDROcodone-acetaminophen 5-325 mg Tablet 1 TAB PO ×2 (04:46→20:07)
[2024-01-06] MEDS: ondansetron 2 mg/ML SDV 2 mL 4 MG IVP (05:05)
[2024-01-06 05:09] LABS: Basophils % 0.2 %; Eosinophils % 0.1 %; Hematocrit 33.9 % (36-47); Lymphocytes # 3.6 10^3/uL (0.8-4.8); Lymphocytes % 21.2 %; Mean Corpuscular HGB Conc 33.3 g/dL (30-55); Mean Corpuscular Hemoglobin 30.9 pg (27-33); Mean Corpuscular Volume 92.6 fl (85-98); Monocytes # 1.8 10^3/uL (0.2-0.9); Monocytes % 10.6 %; Neutrophils # 11.24 10^3/uL (1.8-7.7); Neutrophils % 67.1 %; Nucleated Red Blood Cells % 0 %; Platelet Count 358 10^3/cmm (157-399); Red Blood Count 3.66 10^6/uL (3.85-5.65); Red Cell Distribution Width 12.9 % (12.1-15.1); White Blood Count 16.77 10^3/uL (3.29-11.43)
[2024-01-06 05:29] LABS: Anion Gap 15.5 (5-19); Blood Urea Nitrogen 36 mg/dL (8-23); Calcium 9.8 mg/dL (8.5-10.5); Carbon Dioxide 21 mmol/L (22-29); Chloride 100 mmol/L (98-107); Glomerular Filtration Rate 41.4 mL/min (90-130); Glucose 152 mg/dL (65-115); Osmolality Calculated 285 mOsm/kg (285-295); Potassium 4.5 mmol/L (3.5-5.1); Sodium 132 mmol/L (136-145)
[2024-01-06 05:35] LABS: Creatinine Clr Calc Pharmacy 46.0692
--- NOTE | 2024-01-06 07:07 | PM.PN ---
Subjective Subjective: Patient feeling better today. Renal function worsened. On dobutamine and levophed Vitals/I&O/Wt Last Vital Signs Temp 98.7 F 01/06/24 04:30 Pulse 50 L 01/06/24 06:45 Resp 16 01/06/24 06:45 BP 111/49 01/06/24 06:45 Pulse Ox 100 01/06/24 06:45 O2 Del Method Nasal Cannula 01/06/24 06:45 O2 Flow Rate 2 01/06/24 06:45 01/05/24 01/06/24 01/06/24 22:59 06:59 14:59 Intake Total 485.813 / 485.813 591.250 / 1077.063 Output Total 75 / 75 375 / 450 Balance 410.813 / 410.813 216.250 / 627.063 Weight last 48 hrs Weight 174 lb 14.4 oz Weight 174 lb 10 oz Weight 180 lb Weight 180 lb Physical Exam Narrative: GENERAL: Patient is alert, awake and oriented x3. [] NECK: No jugular vein distension. [] HEENT: No cyanosis. No icterus. No pallor. [] HEART: Regular S1 and S2. LUNGS: Diminished air entry bilaterally. CENTRAL NERVOUS SYSTEM: Grossly nonfocal. [] EXTREMITIES: Has wounds on both feet. Urinary Catheter Management: Nelson: Cath Placed During This Visit: yes Reason for Continuing Indwelling Catheter: Accurate Measurement of Urinary Output in Critically Ill Patients Urinary Catheter Date of Insertion: 01/05/24 Urinary Catheter Time of Insertion: 20:10 Data 01/07/24 03:28 01/07/24 03:28 A&P Assessment and plan (1) ST elevation (STEMI) myocardial infarction: (2) Diabetes mellitus: Qualifiers: Diabetes mellitus type: type 2 Diabetes mellitus terminal gauger insulin use: without shelter use Diabetes mellitus complication status: with hyperglycemia Qualified Code(s): E11.65 - Type 2 diabetes mellitus with hyperglycemia (3) RVF (right ventricular failure): Plan Patient presented with ST elevation DC however presentation is late as symptoms have been going on for 2 days. Patient underwent successful revascularization of RCA and PDA with 2 stents. Also has multivessel disease. Plan for staged PCI of LAD and ramus artery CT surgery turned her down for CABG. Continue aspirin Plavix. Patient went into RV failure. We are hydrating her. Patient currently on Levophed and was started between. Blood pressures have improved. LV systolic function is normal. However RV is severely hypokinetic. Once patient renal function stabilizes and cardiogenic shock improves, we will proceed with PCI of LAD and ramus artery. Patient's family from out of state will be visiting and we will have further discussion about goals of care and further management once they are here. Medicine team on board. Appreciate recommendations. Attestations Medical Necessity Statement*: [facility] Patient presented late with inferior wall STEMI. Underwent revascularization of RCA. Has severe multivessel CAD and in cardiogenic shock. Coding Level of Care Code Acute Code for [facility] Fwd Diagnoses ST elevation (STEMI) myocardial infarction I21.3 Type 2 diabetes mellitus with hyperglycemia, without long-term current use of insulin E11.65 Diabetes mellitus type: type 2 Diabetes mellitus terminal gauger insulin use: without shelter use Diabetes mellitus complication status: with hyperglycemia RVF (right ventricular failure) I50.810
[2024-01-06 07:47] LABS: Glucose Point of Care 159 mg/dL (70-110)
[2024-01-06] MEDS: diphenhydrAMINE 50 mg Capsule PO (07:48)
[2024-01-06 07:54] LABS: Procalcitonin 0.24 ng/mL (0-0.5)
[2024-01-06] MEDS: insulin lispro 100 unit/1 mL SUBCUT ×3 (07:56→20:10)
[2024-01-06] MEDS: aspirin 81 mg EC Tablet PO (07:57)
[2024-01-06] MEDS: cefTRIAXone 1,000 MG in sodium chloride 0.9% (plus) 50 ML 100 MG IV (07:57)
[2024-01-06] MEDS: atorvastatin 40 mg Tablet 80 MG PO (07:57)
[2024-01-06] MEDS: gabapentin 100 mg Capsule PO (07:58)
[2024-01-06] MEDS: doxycycline 100 mg Tablet PO ×2 (07:58→17:19)
[2024-01-06] MEDS: clopidogrel 75 mg Tablet PO (07:58)
[2024-01-06] MEDS: pantoprazole 40 mg SDV IVP ×2 (07:59→17:18)
[2024-01-06] MEDS: sodium chloride 0.9% 1,000 ML 100 ML IV ×2 (08:06→21:41)
[2024-01-06] MEDS: insulin glargine 100 units/1 mL 30 UNIT SUBCUT ×2 (08:14→17:19)
[2024-01-06] MEDS: DOBUTamine drip 500 MG/250 ML PREMIX 11.9000000000000004 MG IV (09:20)
--- NOTE | 2024-01-06 12:00 | XRR_ITS ---
PROCEDURE INFORMATION: Exam: XR Chest Exam date and time: 01/06/2024 11:46 AM Age: 63 years old Clinical indication: Shortness of breath; TECHNIQUE: Imaging protocol: Radiologic exam of the chest. Views: 1 view. COMPARISON: CR XR chest 1V portable [id number] 01/04/2024 3:27 PM FINDINGS: Lungs: Mild coarse reticular opacity in the lung bases suggest subsegmental atelectasis or scarring. No focal consolidation. Pleural spaces: There is no pleural effusion or pneumothorax. Heart/Mediastinum: There is mild enlargement of the cardiac silhouette. Bones/joints: Bones are unremarkable. XR/XR chest 1V portable [id number] IMPRESSION: No significant change since 01/03/2023
--- NOTE | 2024-01-06 12:30 | ECG_ITS ---
[facility] Test Date: 2024-01-06 Pat Name: Yuri Ribear Department: Room: [facility]01 Gender: Female Advanced Registered Nurse: : 1960 Requested By: Alek Parks Order Number: [id number] Reading MD: Alek Parks M.D. Measurements Intervals [place] Rate: 74 P: 0 ND: 0 QRS: 34 QRSD: 93 T: -25 QT: 348 QTc: 387 Interpretive Statements HIGH DEGREE AV BLOCK LOW QRS VOLTAGE IN PRECORDIAL LEADS [QRS DEFLECTION < 1.0 mV IN CHEST LEADS] INFERIOR MYOCARDIAL INFARCTION , PROBABLY RECENT [40+ ms Q WAVE AND/OR ST/T ABNORMALITY IN II/aVF] Compared to ECG 01/05/2024 21:06:45 Low QRS voltage now present ST (T wave) deviation no longer present Myocardial infarct finding still present Electronically Signed On 01-06-2024 16:28:06 CDT by Alek Parks M.D. [email or web address].[employer]/store/OM/[id number]
--- NOTE | 2024-01-06 12:49 | PM.PN ---
Subjective Subjective: Patient is improving dobutamine with Levophed Patient is feeling better Hemodynamically stable Heart rate better Complexion has improved Spoke with her daughter Patient carries a guarded prognosis and high risk of arrhythmias and cardiac arrest patient is full code, daughter is planning to fly from [place], spoke with her daughter as well She is in RT She does understand all the medical terms She understands that her mother is not doing well at this point Angiogram MRI has been postponed Creatinine 1.3: Developed ASHLEY Vitals/I&O/Wt Last Vital Signs Temp 98.7 F 01/06/24 04:30 Pulse 72 01/06/24 12:00 Resp 12 01/06/24 12:00 BP 110/81 01/06/24 12:00 Pulse Ox 96 01/06/24 12:00 O2 Del Method Room Air 01/06/24 08:46 O2 Flow Rate 2 01/06/24 06:45 01/05/24 01/06/24 01/06/24 22:59 06:59 14:59 Intake Total 485.813 / 485.813 591.250 / 1077.063 500 / 500 Output Total 75 / 75 375 / 450 Balance 410.813 / 410.813 216.250 / 627.063 500 / 500 Weight last 48 hrs Weight 79.333 kg Weight 79.209 kg Weight 81.647 kg Weight 81.647 kg Physical Exam Narrative: Nelson catheter in place GCS 15 Nonfocal neuroexam Currently on Levophed and dobutamine Hemodynamically stable Pleasant cough No active back pain Nelson catheter in place No active chest pain Currently doing well on room air Urinary Catheter Management: Nelson: Cath Placed During This Visit: yes Reason for Continuing Indwelling Catheter: Accurate Measurement of Urinary Output in Critically Ill Patients Urinary Catheter Date of Insertion: 01/05/24 Urinary Catheter Time of Insertion: 20:10 Data 01/06/24 04:37 01/06/24 04:37 A&P Assessment and plan (1) RVF (right ventricular failure): (2) ST elevation (STEMI) myocardial infarction: (3) Diabetes mellitus: Qualifiers: Diabetes mellitus type: type 2 Diabetes mellitus [facility] insulin use: without [facility] use Diabetes mellitus complication status: with hyperglycemia Qualified Code(s): E11.65 - Type 2 diabetes mellitus with hyperglycemia (4) Low back pain of over 3 months duration: (5) Insomnia due to medical condition: (6) Anxiety: (7) Leukocytosis: (8) ASHLEY (acute kidney injury): (9) UTI (urinary tract infection): Plan Right ventricle failure Currently on Levophed and dobutamine ASHLEY: Contrast-induced nephropathy? Monitor urine output Anticipate improvement with the use of dobutamine Back pain No signs of spinal abscess No sign of cauda equina MRI postponed STEMI status post stent, staged procedure has been delayed secondary to use of Levophed and dobutamine Patient is full code Spoke with the daughter who is an RT Full code Cardiac diet N.p.o. 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
[2024-01-06 13:32] LABS: Magnesium 2.1 mg/dL (1.7-2.3); Thyroid Stimulating Hormone 0.86 uIU/mL (0.27-4.20)
[2024-01-06] MEDS: norepinephrine 4 MG/250 ML BAG 7.5 MG IV (14:55)
--- NOTE | 2024-01-06 15:25 | PC.OT ---
OT EVALUATION HELD DUE TO DECLINE IN STATUS. WILL ATTEMPT TOMORROW IF APPROPRIATE
[2024-01-06 15:44] LABS: Alanine Aminotransferase 46 U/L (0-33); Albumin Level 2.9 g/dL (3.5-5.2); Alkaline Phosphatase 99 U/L (35-105); Anion Gap 15.1 (5-19); Aspartate Amino Transferase 47 U/L (0-32); Blood Urea Nitrogen 35 mg/dL (8-23); Calcium 9.9 mg/dL (8.5-10.5); Carbon Dioxide 22 mmol/L (22-29); Chloride 101 mmol/L (98-107); Creatinine Clr Calc Pharmacy 49.9459; Globulin 3.3 g/dL (1.3-4.6); Glomerular Filtration Rate 45.4 mL/min (90-130); Glucose 109 mg/dL (65-115); Osmolality Calculated 287 mOsm/kg (285-295); Potassium 4.1 mmol/L (3.5-5.1); Sodium 134 mmol/L (136-145); Total Bilirubin 0.7 mg/dL (0.15-1.2); Total Protein 6.2 g/dL (6.6-8.7)
[2024-01-06] MEDS: FUROsemide 10 mg/mL SDV 2mL 20 MG IVP (17:18)
[2024-01-06 17:25] LABS: Glucose Point of Care 110 mg/dL (70-110)
--- NOTE | 2024-01-06 18:12 | PC.NURSE ---
shift summary: did not go to cathode builder in AM due to bp and renal labs increased. dobutaming started per order from [facility] after deciding not to continue with cath. plan to retry in aM
[2024-01-06 19:56] LABS: Glucose Point of Care 228 mg/dL (70-110)
[2024-01-06] MEDS: temazepam 15 mg Capsule PO (20:08)
--- NOTE | 2024-01-06 21:42 | PC.NURSE ---
Low BP: Contacted Dr. Parks @2622 w/ concerns for persistent low BP and need to titrate up dobutamine and levophed. New order for NS @100ml/hr.
[2024-01-06] MEDS: DOBUTamine drip 500 MG/250 ML PREMIX 47.6000000000000014 MG IV (23:44)
--- NOTE | 2024-01-06 23:51 | PC.NURSE ---
Low BP: Notified Dr. Montilla @9735 of max dose of Dobutamine reached, and increasing levophed, BP remains low. No new orders at this time.
[2024-01-07] VITALS (101 sets, daily range): BP systolic 68–150; BP diastolic 38–84; PULSE 64–95; RESP 9–30; TEMP 36.7–36.9; O2SAT 90–100
--- NOTE | 2024-01-07 00:37 | PC.NURSE ---
Low BP: Called Dr. Parks @0034- No answer Called Dr. Montilla @0037, notified him of persistent low BP and increasing levophed requirements, Dobutamine maxed out, pt is trandelenburg. New order to Dopamine when levophed is maxed out.
--- NOTE | 2024-01-07 00:52 | PC.NURSE ---
Family Called: Called Gwendolyn, daughter, to update on pts critical condition and increasing requirements of blood pressure medication. Joaquin reports that she will be in [place] in 2 to 3 hours.
--- NOTE | 2024-01-07 00:55 | PC.NURSE ---
IV access: Notified Dr. Montilla @9215 of peripheral IV access only and currently attempting to get additional ultrasound IV access. Also notified him that family plans to arrive in the next 2 to 3 hours.
[2024-01-07] MEDS: morphine 4 mg/mL SDV 1 mL 2 MG IVP ×2 (01:28→02:30)
--- NOTE | 2024-01-07 01:58 | P.PNCC_ITS ---
Critical Care Event Note The high probability of a clinically significant, sudden or life threatening deterioration of the patient's [] system(s) required my full and direct attention, intervention and personal management. The critical care time is as shown. This time is in addition to time spent performing any reported procedures but includes the following: [x] Data and vital sign review and interpretation [x] Patient assessment, examination and intervention [x] Documentation [x] Medication orders and management Critical Care Time Code activated: No Critical Care Time (min): 35 Additional information about critical care time: - Early this morning, roughly 1 AM, patient became severely hypotensive blood pressure 60s over 40s, on maximum dobutamine drip at 20, advised nursing staff to start Levophed and titrate up ? Patient examined, on Levophed at 10, blood pressures, MAP less than 65 she is alert oriented x 3, following all commands, mild mottling bilateral extremities, DP PT pulses bilateral lower extremities diminished, cap refill greater than 2 seconds, patient is in shock, concerns for cardiogenic shock -Gave her a fluid bolus, 200 g of albumin, add on dopamine upward titrate Levophed -I had a detailed discussion with patient about her cardiogenic shock, she remains a full code, we discussed the risks and benefits of an urgent central line placement, as patient is on high-dose pressors through peripheral IV line, including but not limited to risk of bleeding, risk of infection, risk of arterial injury, risk of soft tissue injury, she voiced understanding, all cons ents are, agreed to proceed -Attempted central line placement, right IJ -Needle was visualized, with ultrasound, visualized needle entry into right internal jugular vein, local vein Collapsing after multiple attempts, ? On first attempt, needle visualized into right internal jugular vein, flash of dark red blood, guidewire was introduced, ultrasound showed correct position of the needle into right internal jugular vein, but as guidewire was introduced, blood vessel collapse, met with resistance, guidewire was removed, needle was removed, pressure applied, area cleaned ? On second attempt needle visualized into right internal jugular vein, flash of dark red blood, blood vessel Collapsing, needle had to be removed, pressure applied, ? On third attempt, again visualized needle entry into right internal internal jugular vein, flash of dark red blood, guidewire was introduced, but met with resistance, guidewire was removed, vessel had collapse, patient is on high-dose pressors, dobutamine, her blood vessels were clamped down, currently her systolic blood pressure is improved to 118/80, MAP is 72, given difficulty of central line placement I aborted procedure, pressure bandage applied, area was cleaned ? Blood pressures remain 118/80, MAP 72, she is saturating well on 2 L alert oriented x 3, we discussed PICC line placement in the morning, she voiced understanding and agreed to proceed, currently on 20 of dobutamine, 10 of Levophed, ? Pressure bandage applied to site Coding Level of Care Code Acute Code for [facility]
--- NOTE | 2024-01-07 02:07 | P.ANES_ITS ---
Anesthesia Procedures Procedure/Date: 01/07/24 Central Venous Insert: Time Out Performed: Yes Consent: from patient, risks and benefits reviewed, patient agrees to proceed and emergency procedure Central Line: New Anesthesia monitors: pulse oximetry, EKG, BP cuff and oxygen Vein cannulated: right internal jugular Ultrasound used: to identify patency to vessel and to visualize needle entry to vein Additional Comments: 3 attempts, visualized entry of needle i nto right internal internal jugular vein , flash block of dark red blood, nonpulsatile however every time the vessel would collapse, twice I try to thread guidewire over met with resistance, thus vessel keeps collapsing as patient is on high-dose dobutamine, Levophed, procedure was aborted, after the third attempt, will work on PICC line placement in the morning blood pressures have improved with fluid bolus albumin Levophed and dobutamine, has 3 good peripheral IVs
[2024-01-07] MEDS: sodium chloride 0.9% 1,000 ML 100 ML IV ×2 (02:08→20:39)
--- NOTE | 2024-01-07 02:08 | PC.NURSE ---
Central Line Attempt: Dr. Montilla at bedside, pt gave verabal consent for central line. During central line attempt verbal order for 2mg IVP Morphine ONCE NOW. Verbal order to bolus IV Fluids in the room- approximately a 500ml bolus. Post central line attempt verbal order for 2mg IVP Morphine ONCE NOW. Verbal order for PICC line. Pavan CidBall Sorter notified of need for PICC line.
[2024-01-07] MEDS: sodium bicarbonate 8.4% 1 mEq/mL 50mL Syr 50 MEQ IVP (02:19)
[2024-01-07 02:21] LABS: ABG PCO2 36.6 mmHg (35-45); ABG PH Result 7.37 (7.35-7.45); Arterial Blood Gas Hematocrit 37.1 % (37-47); Base Excess ABG -3.7 mmol/L (-2.0-2.0); Blood Gas Allen Test Pos; Blood Gas Operator Identificat JB; Blood Gas Sample Site Radial, right; Blood Gas Sample Type Arterial; HCO3 ABG 21.1 mmol/L (22-26)
[2024-01-07 02:22] LABS: Oxygen Device NC
[2024-01-07] MEDS: albumin 50 G/200 ML BAG 60 G IV (02:24)
--- NOTE | 2024-01-07 02:38 | ECG_ITS ---
[facility] Test Date: 2024-01-07 Pat Name: Yuri Ribera Department: Room: [facility]01 Gender: Female Applications Specialist: : 1960 Requested By: Earle Montilla Order Number: [id number] Arben MD: Madhavi Munguia M.D. Measurements Intervals [place] Rate: 84 P: 0 AK: 0 QRS: 8 QRSD: 97 T: -27 QT: 329 QTc: 389 Interpretive Statements SUPRAVENTRICULAR RHYTHM LOW QRS VOLTAGE IN PRECORDIAL LEADS [QRS DEFLECTION < 1.0 mV IN CHEST LEADS] INFERIOR MYOCARDIAL INFARCTION , PROBABLY RECENT [40+ ms Q WAVE AND/OR ST/T ABNORMALITY IN II/aVF] ST ELEVATION, CONSIDER ANTERIOR INJURY [MARKED ST ELEVATION W/O NORMALLY INFLECTED T-WAVE IN V2-V5] ACUTE [place] Compared to ECG 01/06/2024 21:46:57 Supraventricular rhythm now present ST (T wave) deviation now present Myocardial infarct finding still present Electronically Signed On 01-07-2024 23:53:22 CDT by Madhavi Munguia M.D. [id number]
--- NOTE | 2024-01-07 03:06 | ECG_ITS ---
[facility] Test Date: 2024-01-07 Pat Name: Yuri Ribera Department: Room: [facility]01 Gender: Female Prior Authorization Nurse: : 1960 Requested By: Earle Montilla Order Number: [id number] Arben MD: Madhavi Munguia M.D. Measurements Intervals [place] Rate: 81 P: 0 IN: 0 QRS: 28 QRSD: 96 T: -27 QT: 336 QTc: 392 Interpretive Statements SUPRAVENTRICULAR RHYTHM, A-V dissociation LOW QRS VOLTAGE IN PRECORDIAL LEADS [QRS DEFLECTION < 1.0 mV IN CHEST LEADS] ANTERIOR MYOCARDIAL INFARCTION , PROBABLY RECENT [40+ ms Q WAVE AND/OR ST/T ABNORMALITY IN V3/V4] INFERIOR MYOCARDIAL INFARCTION , PROBABLY RECENT [40+ ms Q WAVE AND/OR ST/T ABNORMALITY IN II/aVF] ACUTE [place] Compared to ECG 01/07/2024 02:38:58 ST (T wave) deviation no longer present Myocardial infarct finding still present Electronically Signed On 01-08-2024 0:28:08 CDT by Madhavi Munguia M.D. [email or web address] [facility] [id number]
[2024-01-07 03:39] LABS: Basophils % 0.2 %; Eosinophils % 0.1 %; Hematocrit 28.4 % (36-47); Lymphocytes # 1.7 10^3/uL (0.8-4.8); Lymphocytes % 15.5 %; Mean Corpuscular HGB Conc 32.7 g/dL (30-55); Mean Corpuscular Hemoglobin 29.9 pg (27-33); Mean Corpuscular Volume 91.3 fl (85-98); Mean Platelet Volume 9.8 fL (7.4-10.4); Monocytes % 9.6 %; Nucleated Red Blood Cells % 0 %; Platelet Count 300 10^3/cmm (157-399); Red Blood Count 3.11 10^6/uL (3.85-5.65); Red Cell Distribution Width 12.9 % (12.1-15.1); White Blood Count 10.82 10^3/uL (3.29-11.43)
[2024-01-07] MEDS: HYDROcodone-acetaminophen 5-325 mg Tablet 1 TAB PO (03:56)
[2024-01-07] MEDS: norepinephrine 4 MG/250 ML BAG 22.5 MG IV ×2 (03:59→15:07)
[2024-01-07 04:12] LABS: NT Pro B Type Natriuretic Pept 12043 pg/mL (0-125); Procalcitonin 0.21 ng/mL (0-0.5)
[2024-01-07 04:23] LABS: Alanine Aminotransferase 44 U/L (0-33); Albumin Level 3.1 g/dL (3.5-5.2); Alkaline Phosphatase 136 U/L (35-105); Anion Gap 14.9 (5-19); Aspartate Amino Transferase 49 U/L (0-32); Blood Urea Nitrogen 32 mg/dL (8-23); C Reactive Protein 176.1 mg/L (0.0-4.9); Calcium 8.9 mg/dL (8.5-10.5); Carbon Dioxide 20 mmol/L (22-29); Chloride 101 mmol/L (98-107); Creatinine Clr Calc Pharmacy 66.5946; Globulin 2.2 g/dL (1.3-4.6); Glomerular Filtration Rate 63.2 mL/min (90-130); Glucose 192 mg/dL (65-115); Osmolality Calculated 286 mOsm/kg (285-295); Potassium 3.9 mmol/L (3.5-5.1); Sodium 132 mmol/L (136-145); Total Bilirubin 0.8 mg/dL (0.15-1.2); Total Protein 5.3 g/dL (6.6-8.7)
[2024-01-07 04:33] LABS: Troponin(5th) Baseline 4810 ng/L (0-10)
[2024-01-07] MEDS: DOBUTamine drip 500 MG/250 ML PREMIX 47.6000000000000014 MG IV ×2 (04:48→10:07)
[2024-01-07] MEDS: neomycin-poly-bacitracin oint 28 gm 1 APPLIC TOPICAL ×2 (04:50→17:23)
[2024-01-07] MEDS: ondansetron 2 mg/ML SDV 2 mL 4 MG IVP ×4 (05:37→17:00)
[2024-01-07 06:34] LABS: Troponin 5 2HR 4779 ng/L (0-10); Troponin 5 2HR Delta -31 ABS# (0-10)
--- NOTE | 2024-01-07 07:03 | XR_ITS ---
WS: [id number] Portable AP supine chest, 01/07/2024 Clinical Data: PICC PLACEMENT Comparison: Portable chest, 01/06/2024 Findings: The right PICC line ends in the superior vena cava. No pneumothorax is seen. XR/XR chest 1V portable [id number] Impression: Insertion of right PICC line.
[2024-01-07] MEDS: morphine IR 15 mg Tablet PO (07:32)
[2024-01-07 07:42] LABS: Glucose Point of Care 189 mg/dL (70-110)
[2024-01-07 07:47] LABS: Glucose Point of Care 107 mg/dL (70-110)
--- NOTE | 2024-01-07 07:59 | PC.RESP ---
ekg delayed- pt in procedure
--- NOTE | 2024-01-07 08:36 | PICC.NOTE ---
Triple lumen PICC placed to right basilic vein per CLEMENCIA Molina. Referred to vascular access nurse for PICC placement due to use of IV vasopressors. Risks and benefits discussed and informed consent obtained from patient and daughter. Right arm assessed with right basilic vein noted to be straight and apparent best choice for placement. Using sterile technique and MST, right basilic vein accessed x 1 stick. Mid-arm circumference measured 10 cm from right AC 31 cm. Trimmed cath 38 cm with 2 cm external length noted. CXR shows tip in SVC, in good position for use per radiologist. Line secured with stat-lock. Insertion site covered with Biopatch and TSM. Report given to bedside nurse, CLEMENCIA Starkey.
--- NOTE | 2024-01-07 08:38 | PC.OT ---
OT EVALUATION HELD TODAY DUE TO DECLINE IN STATUS
[2024-01-07] MEDS: insulin lispro 100 unit/1 mL SUBCUT ×3 (08:44→20:39)
[2024-01-07] MEDS: cefTRIAXone 1,000 MG in sodium chloride 0.9% (plus) 50 ML 100 MG IV ×2 (08:45→20:40)
[2024-01-07] MEDS: atorvastatin 40 mg Tablet 80 MG PO (08:45)
[2024-01-07] MEDS: aspirin 81 mg EC Tablet PO (08:45)
[2024-01-07] MEDS: doxycycline 100 mg Tablet PO ×2 (08:46→17:23)
[2024-01-07] MEDS: gabapentin 100 mg Capsule PO (08:46)
[2024-01-07] MEDS: pantoprazole 40 mg SDV IVP ×2 (08:46→17:01)
[2024-01-07] MEDS: sennosides-docusate Tablet 1 TAB PO (08:46)
[2024-01-07] MEDS: clopidogrel 75 mg Tablet PO (08:46)
--- NOTE | 2024-01-07 09:11 | ECG_ITS ---
[facility] Test Date: 2024-01-07 Pat Name: Yuri Ribera Department: Room: [facility]01 Gender: Female Railroad Auditor: : 1960 Requested By: Earle Montilla Order Number: [id number] Arben MD: Madhavi Munguia M.D. Measurements Intervals [place] Rate: 77 P: 0 [place]: 0 QRS: 26 QRSD: 103 T: -29 QT: 337 QTc: 383 Interpretive Statements SUPRAVENTRICULAR RHYTHM-A-V dissociation LOW QRS VOLTAGE IN PRECORDIAL LEADS [QRS DEFLECTION < 1.0 mV IN CHEST LEADS] INFERIOR MYOCARDIAL INFARCTION , PROBABLY RECENT [40+ ms Q WAVE AND/OR ST/T ABNORMALITY IN II/aVF] ACUTE [place] Compared to ECG 01/07/2024 04:35:41 No significant changes Electronically Signed On 01-08-2024 0:32:43 CDT by Madhavi Munguia M.D. [email or web address] greater lansing hospitalSeatwave/store/[id number]
[2024-01-07] MEDS: insulin glargine 100 units/1 mL 30 UNIT SUBCUT ×2 (09:39→17:01)
[2024-01-07 10:33] LABS: Troponin 5 6HR 3435 ng/L (0-10); Troponin 5 6HR Delta -1375 ng/L (0-12)
[2024-01-07 10:54] LABS: Glucose Point of Care 170 mg/dL (70-110)
--- NOTE | 2024-01-07 12:35 | P.PN_ITS ---
Subjective 2 Subjective: Spoke with the patient and her daughter, they are leaning towards DNR/DNR status in case of further worsening they might opt for palliative care, they are not too keen on another angiogram Currently on Levophed 8 and dobutamine Hemodynamically stable Patient is still complaining of back pain Leukocytosis improved No fever Vitals/I&O/Wt Last Vital Signs Temp 98.1 F 01/07/24 02:45 Pulse 87 01/07/24 12:15 Resp 21 H 01/07/24 12:15 BP 108/67 01/07/24 12:15 Pulse Ox 99 01/07/24 12:15 O2 Del Method Nasal Cannula 01/07/24 08:37 O2 Flow Rate 2 01/07/24 08:37 01/06/24 01/07/24 01/07/24 22:59 06:59 14:59 Intake Total 1453.325 / 2084.262 2165.497 / 4249.759 213.407 / 213.407 Output Total 450 / 450 325 / 775 Balance 1003.325 / 2330.458 7873.497 / 3474.759 213.407 / 213.407 Weight last 48 hrs Weight 79.333 kg Physical Exam 2 Narrative: Hemodynamically stable on 2 pressors Laying on left lateral position S1, S2 Currently on 2 L Complain of back pain No signs of cauda equina Mild signs of lower extremity swelling Able to comprehend Nonfocal neuroexam Urinary Catheter Management: Nelson: Cath Placed During This Visit: yes Reason for Continuing Indwelling Catheter: Accurate Measurement of Urinary Output in Critically Ill Patients Urinary Catheter Date of Insertion: 01/05/24 Urinary Catheter Time of Insertion: 20:10 Data 01/07/24 03:28 01/07/24 03:28 A&P Assessment and plan (1) Anxiety: (2) RVF (right ventricular failure): (3) ST elevation (STEMI) myocardial infarction: (4) Diabetes mellitus: Qualifiers: Diabetes mellitus type: type 2 Diabetes mellitus 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 insulin use: without 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 use Diabetes mellitus complication status: with hyperglycemia Qualified Code(s): E11.65 - Type 2 diabetes mellitus with hyperglycemia (5) ASHLEY (acute kidney injury): (6) UTI (urinary tract infection): (7) Leukocytosis: (8) Low back pain of over 3 months duration: (9) Ulcer of right foot with fat layer exposed: (10) Insomnia due to medical condition: Plan Leukocytosis improved Continue antibiotics for UTI Back pain history of present without signs of cauda equina Not a good candidate for MRI she is not able to lay flat for 30+ minutes on her back No fever Right ventricle failure Being supported with ANDREW pressors and vasopressors Also has IV fluids for right clinical support ASHLEY: Improved Discussed with the family, they are leaning towards DNR/DNI status today and not keen on getting another angiogram In case of further worsening we might opt for palliative care DNR/DNI I will change her n.p.o. status to Attestations 2 Medical Necessity Statement*: Continue ICU management Diagnoses Anxiety F41.9 RVF (right ventricular failure) I50.810 ST elevation (STEMI) myocardial infarction I21.3 Type 2 diabetes mellitus with hyperglycemia, without long-term current use of insulin E11.65 Diabetes mellitus type: type 2 Diabetes mellitus skilled nursing insulin use: without 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 use Diabetes mellitus complication status: with hyperglycemia ASHLEY (acute kidney injury) N17.9 UTI (urinary tract infection) N39.0 Leukocytosis D72.829 Low back pain of over 3 months duration M54.5 Ulcer of right foot with fat layer exposed L97.512 Insomnia due to medical condition G47.01
--- NOTE | 2024-01-07 12:40 | P.PN_ITS ---
Subjective 2 Subjective: Patient's pressor requirement went up last night. No chest pain. Feels weak. Family is here. Vitals/I&O/Wt Last Vital Signs Temp 98.1 F 01/07/24 02:45 Pulse 87 01/07/24 12:15 Resp 21 H 01/07/24 12:15 BP 108/67 01/07/24 12:15 Pulse Ox 99 01/07/24 12:15 O2 Del Method Nasal Cannula 01/07/24 08:37 O2 Flow Rate 2 01/07/24 08:37 01/06/24 01/07/24 01/07/24 22:59 06:59 14:59 Intake Total 1453.325 / 2084.262 2165.497 / 4249.759 213.407 / 213.407 Output Total 450 / 450 325 / 775 Balance 1003.325 / 2786.148 7163.497 / 3474.759 213.407 / 213.407 Weight last 48 hrs Weight 174 lb 14.4 oz Physical Exam 2 Narrative: GENERAL: Patient is alert, awake and oriented x3. [] NECK: No jugular vein distension. [] HEENT: No cyanosis. No icterus. No pallor. [] HEART: Regular S1 and S2. LUNGS: Diminished air entry bilaterally. CENTRAL NERVOUS SYSTEM: Grossly nonfocal. [] EXTREMITIES: Has wounds on both feet. Urinary Catheter Management: Nelson: Cath Placed During This Visit: yes Reason for Continuing Indwelling Catheter: Accurate Measurement of Urinary Output in Critically Ill Patients Urinary Catheter Date of Insertion: 01/05/24 Urinary Catheter Time of Insertion: 20:10 Data 01/08/24 03:58 01/08/24 03:58 A&P Assessment and plan (1) ST elevation (STEMI) myocardial infarction: (2) Diabetes mellitus: Qualifiers: Diabetes mellitus type: type 2 Diabetes mellitus exterminator helper termite insulin use: without exterminator helper termite use Diabetes mellitus complication status: with hyperglycemia Qualified Code(s): E11.65 - Type 2 diabetes mellitus with hyperglycemia (3) RVF (right ventricular failure): Plan Patient presented with ST elevation VA however presentation is late as symptoms have been going on for 2 days. Patient underwent successful revascularization of RCA and PDA with 2 stents. Also has multivessel disease. Surgical turndown. We had planned for PCI of LAD and ramus artery once patient is stable. However she went into RV failure secondary to delayed presentation of inferior VA. Currently requiring dobutamine and Levophed. Requirement of pressors went up. Family on bedside today. CODE STATUS switched to DNR/DNI. Family leaning towards comfort care. Patient wants to have more time to decide on it. Will continue with aggressive medical therapy at this time. Will hold off on intervention of left system at this time as LV systolic function is normal. Continue aspirin and Plavix.. Medicine team on board. Appreciate recommendations. Attestations 2 Medical Necessity Statement*: Care expected to cross 2 midnights. Patient had presented late with STEMI, and has RV failure and cardiogenic shock. Coding Level of Care Code Acute Code for [facility] Diagnoses ST elevation (STEMI) myocardial infarction I21.3 Type 2 diabetes mellitus with hyperglycemia, without long-term current use of insulin E11.65 Diabetes mellitus type: type 2 Diabetes mellitus halfway insulin use: without halfway use Diabetes mellitus complication status: with hyperglycemia RVF (right ventricular failure) I50.810
[2024-01-07] MEDS: DOPamine drip 400 MG/250 ML PREMIX 44.6300000000000026 MG IV (15:07)
[2024-01-07 16:01] LABS: Glucose Point of Care 116 mg/dL (70-110)
[2024-01-07] MEDS: HYDROmorphone 1 mg/mL INJ 1 mL 0.400000000000000022 MG IVP ×2 (17:01→21:28)
--- NOTE | 2024-01-07 17:37 | PC.NURSE ---
Shift summary: patient and family considering comfort care, c/o of severe pain and nausea this evening med changes per OCT
[2024-01-07 20:31] LABS: Glucose Point of Care 179 mg/dL (70-110)
--- NOTE | 2024-01-07 20:53 | PC.NURSE ---
Rocephin Reordered: Rocephin was found hanging in patient room not infused. Pharmacy was called and they reordered dose to be given Q24h. Remaining Rocephin was discarded.
[2024-01-07] MEDS: DOBUTamine drip 500 MG/250 ML PREMIX 11.9000000000000004 MG IV (22:00)
--- NOTE | 2024-01-07 22:09 | PC.NURSE ---
Dopamine switched to DOBUTamine: Attempted to titrate dobutamine drip in patient's MAR, bag showed infused. Dopamine noted to be running in the pump at 15mcg/kg/min. Infusion stopped. Dr. Parks notified; orders clarified. Dobutamine initiated per protocol.
[2024-01-08] VITALS (56 sets, daily range): BP systolic 58–138; BP diastolic 38–67; PULSE 56–73; RESP 4–24; TEMP 36.4–36.8; O2SAT 79–100; BMI 30.8
[2024-01-08] MEDS: ondansetron 2 mg/ML SDV 2 mL 4 MG IVP ×2 (03:46→09:31)
[2024-01-08] MEDS: HYDROmorphone 1 mg/mL INJ 1 mL 0.400000000000000022 MG IVP ×2 (03:46→09:31)
[2024-01-08 05:18] LABS: Basophils % 0.2 %; Eosinophils # 0.1 10^3/uL (0.0-0.8); Eosinophils % 0.7 %; Hematocrit 26.6 % (36-47); Lymphocytes # 2.2 10^3/uL (0.8-4.8); Lymphocytes % 20.6 %; Mean Corpuscular HGB Conc 32.7 g/dL (30-55); Mean Corpuscular Hemoglobin 30.7 pg (27-33); Monocytes # 1.3 10^3/uL (0.2-0.9); Monocytes % 11.8 %; Neutrophils # 7.04 10^3/uL (1.8-7.7); Neutrophils % 66.1 %; Nucleated Red Blood Cells % 0 %; Platelet Count 314 10^3/cmm (157-399); Red Blood Count 2.83 10^6/uL (3.85-5.65); Red Cell Distribution Width 12.9 % (12.1-15.1); White Blood Count 10.64 10^3/uL (3.29-11.43)
[2024-01-08] MEDS: DOBUTamine drip 500 MG/250 ML PREMIX 35.7000000000000028 MG IV (05:18)
[2024-01-08 05:41] LABS: Anion Gap 13.8 (5-19); Blood Urea Nitrogen 25 mg/dL (8-23); Calcium 9.2 mg/dL (8.5-10.5); Carbon Dioxide 23 mmol/L (22-29); Chloride 101 mmol/L (98-107); Creatinine Clr Calc Pharmacy 88.0458; Glomerular Filtration Rate 84.5 mL/min (90-130); Glucose 83 mg/dL (65-115); Osmolality Calculated 282 mOsm/kg (285-295); Potassium 3.8 mmol/L (3.5-5.1); Sodium 134 mmol/L (136-145)
--- NOTE | 2024-01-08 07:19 | PM.PN ---
Subjective Subjective: Patient and family have decided to proceed with comfort measures/hospice. Vitals/I&O/Wt Last Vital Signs Temp 98.2 F 01/08/24 03:22 Pulse 73 01/08/24 06:00 Resp 21 H 01/08/24 06:00 BP 109/55 01/08/24 06:00 Pulse Ox 99 01/08/24 06:00 O2 Del Method Nasal Cannula 01/08/24 03:15 O2 Flow Rate 2 01/08/24 03:15 01/07/24 01/08/24 01/08/24 22:59 06:59 14:59 Intake Total 657.503 / 1837.740 300.000 / 2137.740 Output Total 300 / 300 400 / 700 Balance 357.503 / 1537.740 -100.000 / 1437.740 Weight last 48 hrs Weight 185 lb 3 oz Physical Exam Narrative: GENERAL: Patient is alert, awake and oriented x3. [] NECK: No jugular vein distension. [] HEENT: No cyanosis. No icterus. No pallor. [] HEART: Regular S1 and S2. LUNGS: Diminished air entry bilaterally. CENTRAL NERVOUS SYSTEM: Grossly nonfocal. [] EXTREMITIES: Has wounds on both feet. Urinary Catheter Management: Nelson: Cath Placed During This Visit: yes Reason for Continuing Indwelling Catheter: Accurate Measurement of Urinary Output in Critically Ill Patients Urinary Catheter Date of Insertion: 01/05/24 Urinary Catheter Time of Insertion: 20:10 Data 01/08/24 03:58 01/08/24 03:58 A&P Assessment and plan (1) ST elevation (STEMI) myocardial infarction: (2) Diabetes mellitus: Qualifiers: Diabetes mellitus type: type 2 Diabetes mellitus vermin exterminator insulin use: without vermin exterminator use Diabetes mellitus complication status: with hyperglycemia Qualified Code(s): E11.65 - Type 2 diabetes mellitus with hyperglycemia (3) RVF (right ventricular failure): Plan Patient had presented late with inferior MT. Underwent successful revascularization of RCA. Patient developed right ventricular failure refractory to medical therapy. Has multivessel CAD as well. Surgical turndown. LV systolic function was normal with severely hypokinetic RV. Pressor requirement kept increasing. Patient has chronic severe lower back pain. Limited with mobility. Family and patient have decided secondary to limited functional capacity and RV failure to proceed with hospice/comfort care. All alternatives were discussed in detail. Medicine team on board and will manage/arrange comfort measures/hospice care. Appreciate their assistance. Attestations Medical Necessity Statement*: Care expected to cross 2 midnights. Patient had presented late with inferior MT. Had totally occluded RCA and underwent revascularization. Went into right ventricular failure that is refractory to medical therapy. Patient and family have made shared decision of proceeding with hospice comfort care. Coding Level of Care Code Acute Code for [facility] Diagnoses ST elevation (STEMI) myocardial infarction I21.3 Type 2 diabetes mellitus with hyperglycemia, without long-term current use of insulin E11.65 Diabetes mellitus type: type 2 Diabetes mellitus usp insulin use: without vermin exterminator use Diabetes mellitus complication status: with hyperglycemia RVF (right ventricular failure) I50.810
[2024-01-08] MEDS: norepinephrine 4 MG/250 ML BAG 15 MG IV (08:08)
--- NOTE | 2024-01-08 09:38 | P.PN_ITS ---
Subjective 2 Subjective: Had a detailed discussion with the patient and her daughter who is at the bedside, patient is stating that she is not able to lay flat for MRI, she is in excruciating pain, she is doing Levophed and dobutamine, after long discussion we have decided to pursue hospice care, they do not want to get transferred to long term today because excruciating back pain prefers to turn off drip start hospice care and stay in the hospital Vitals/I&O/Wt Last Vital Signs Temp 98.2 F 01/08/24 03:22 Pulse 69 01/08/24 08:15 Resp 12 01/08/24 08:00 BP 138/67 01/08/24 08:15 Pulse Ox 95 01/08/24 08:15 O2 Del Method Nasal Cannula 01/08/24 07:38 O2 Flow Rate 2 01/08/24 07:38 01/07/24 01/08/24 01/08/24 22:59 06:59 14:59 Intake Total 657.503 / 1837.740 405.250 / 2242.990 1176.355 / 1176.355 Output Total 300 / 300 400 / 700 Balance 357.503 / 1537.740 5.250 / 1279.701 6269.355 / 1176.355 Weight last 48 hrs Weight 84 kg Physical Exam 2 Narrative: Patient is laying supine Able to comprehend GCS 15 Nonfocal neuroexam Currently on 2 pressors Awake and alert Laying in right lateral position Daughter at the bedside S1, S2 Blood pressure 138/67 removed Currently on 2 L Urinary Catheter Management: Nelson: Cath Placed During This Visit: yes Reason for Continuing Indwelling Catheter: Accurate Measurement of Urinary Output in Critically Ill Patients Urinary Catheter Date of Insertion: 01/05/24 Urinary Catheter Time of Insertion: 20:10 Data 01/08/24 03:58 01/08/24 03:58 A&P Assessment and plan (1) RVF (right ventricular failure): (2) Hospice care: Plan Start hospice care Dr. Cuadra is aware Patient and daughter both decided to pursue hospice care and turn off dobutamine and Levophed She is in excruciating pain and not able to bear the pain anymore Attestations 2 Medical Necessity Statement*: Guarded prognosis Diagnoses RVF (right ventricular failure) I50.810 Hospice care Z51.5
--- NOTE | 2024-01-08 10:01 | PC.NURSE ---
Instructions received From provider to stop all medication not ordered for comfort care and and rehab orders
[2024-01-08] MEDS: LORazepam 2 mg/mL INJ 10 mL MDV IVP ×2 (10:28→12:16)
[2024-01-08] MEDS: morphine 4 mg/mL SDV 1 mL IVP ×8 (10:32→23:05)
[2024-01-08] MEDS: diphenhydrAMINE 25 mg Capsule PO (23:04)
[2024-01-09] VITALS (15 sets, daily range): BP systolic 110; BP diastolic 48; PULSE 45–49; RESP 4–21; O2SAT 47–97; BMI 30.9
[2024-01-09] MEDS: morphine 4 mg/mL SDV 1 mL IVP ×15 (00:14→13:21)
[2024-01-09] MEDS: atropine 1% op soln 2 mL Btl 3 DROP SUBLINGUAL ×2 (02:07→06:28)
[2024-01-09] MEDS: LORazepam 2 mg/mL INJ 10 mL MDV IVP ×5 (05:00→13:26)
--- NOTE | 2024-01-09 08:22 | PM.PN ---
Subjective Subjective: We will increase the frequency of Xanax Patient is getting morphine She is showing signs of agonal breathing Will transfer out of ICU to [facility] She will be with her nursing until Thursday Vitals/I&O/Wt Last Vital Signs Temp 97.6 F 01/08/24 20:00 Pulse 48 L 01/09/24 06:00 Resp 14 01/09/24 07:33 BP 110/48 01/08/24 21:00 Pulse Ox 47 L 01/09/24 07:33 O2 Del Method Nasal Cannula 01/08/24 07:38 O2 Flow Rate 2 01/08/24 07:38 01/08/24 01/09/24 01/09/24 22:59 06:59 14:59 Intake Total 60 / 1236.355 Output Total 300 / 300 100 / 400 Balance -240 / 936.355 -100 / 836.355 Weight last 48 hrs Weight 84.17 kg Weight 84 kg Physical Exam Narrative: Normotensive Hypoxic and bradycardic Obtunded Agonal breathing Family at the bedside Urinary Catheter Management: Nelson: Cath Placed During This Visit: yes Reason for Continuing Indwelling Catheter: Accurate Measurement of Urinary Output in Critically Ill Patients Urinary Catheter Date of Insertion: 01/05/24 Urinary Catheter Time of Insertion: 20:10 Data 01/08/24 03:58 01/08/24 03:58 A&P Assessment and plan (1) Hospice care: Plan Cardiogenic shock Right ventricle failure Back pain Cruciate and pain Currently on hospice care Continue opioids and Xanax We can use scopolamine patch for upper airway secretions Goal is to keep her comfortable, we might be able to arrange [facility] care if she makes it till Thursday Family at the bedside, updated, transferred out of ICU to [facility] Attestations Medical Necessity Statement*: Continue medical management Diagnoses Hospice care Z51.5
--- NOTE | 2024-01-09 12:07 | PC.NURSE ---
Report called Medical surgical floor. Patient to transfer to room 273.
--- NOTE | 2024-01-09 12:39 | PC.NURSE ---
Patient transferred via bed on room air with family at bedside. Patient agonal breathing, heart rate in 40's on monitor and oxygen saturation varying from 70's to 90s. Patient chart and atropine drops left with staff at supervisor front. Orientation to room and call light provided to family. All belongings with family at bedside, including a brown wallet type purse with all contents, patient wearing gold colored ring.
--- NOTE | 2024-01-09 14:01 | PC.NURSE ---
TIME OF - TIME OF CONFIRMED WITH WENDI ESQUIVEL AT 1400.
--- NOTE | 2024-01-09 14:21 | PC.NURSE ---
pt at 1400, notified
--- NOTE | 2024-01-09 16:02 | PM.DDS ---
Discharge Providers DDS Date of Admission: 01/04/24 14:22 Date Summary Completed: 01/09/24 Attending Provider at Admission: Alek Parks M.D Attending Provider at Discharge: Alek Parks M.D DS Diagnoses Hospital Diagnoses (1) Hospice care: Reason for Visit Reason for Visit chest pain, leg pain, weakness Summary Summary Summary: 63-year-old female who presented with STEMI, cardiology was consulted from the ER, Dr. Parks took her to the [facility], put a stent in RCA, patient had multiple vessel disease, decision was made to treat her with elective staged angiogram but patient started becoming unstable with cardiogenic shock and right ventricle failure. She was on Levophed and dobutamine, she was deemed not a candidate for CABG because of functional decline, poorly controlled diabetes. Podiatry was consulted for evaluation of right foot ulcer, scab was removed dressing was done on daily basis. Patient decided against elective angiogram and after multiple family meetings, decision was made to start hospice/comfort care in the hospital. Additional Data Confirmation of as documented by pronouncing clinician: no pulse, no respirations, no heart sounds and pupils fixed and dilated Family: at bedside Additional persons at bedside: nursing staff Attending/PCP notified?: Attending notified Was code activated?: No Autopsy requested?: No Advance directives?: No Hospice patient?: Yes Discharge Plan Discharge Patient Disposition: Condition: Stable Prescriptions: No Action acetaminophen 650 mg Tablet Extended Release 650 mg PO Q8H PRN (Reason: Pain) amlodipine 5 mg Tablet 10 mg PO DAILY Qty: 90 4RF atorvastatin 40 mg Tablet 40 mg PO BEDTIME Qty: 90 0RF calamine-zinc oxide 8-8 % Lotion 1 applic topical Q4H PRN (Reason: Itching) Qty: 177 0RF insulin glargine 100 unit/mL Solution 25 unit SUBCUT BID Qty: 10 8RF metoprolol tartrate 25 mg Tablet 25 mg PO BID@0900,2100 Qty: 120 0RF metformin 1,000 mg tablet 500 mg PO BID Qty: 120 3RF cyanocobalamin (vitamin B-12) 1,000 mcg capsule 1,000 mcg PO DAILY Qty: 120 0RF lisinopril 20 mg tablet 20 mg PO DAILY Qty: 90 3RF cefpodoxime 200 mg tablet 200 mg PO BID Qty: 10 0RF Rx Instructions: must administer with a meal/food insulin lispro [Humalog KwikPen Insulin] 100 unit/mL insulin pen See Rx Instructions .ROUTE .COMPLEX Qty: 15 5RF Rx Instructions: medium dose sliding scale gabapentin 100 mg capsule 100 mg PO DAILY Qty: 30 0RF hydrocodone-acetaminophen 5-325 mg tablet 1 tab PO Q6H PRN (Reason: pain) Qty: 14 0RF Probable Cause of Probable cause of : Cardiac arrest DS Attestations Time Spent in /Discharge Care*: less than 30 min Quality - AMI: AMI present?: No Quality - Stroke: CVA present?: No Quality - VTE: VTE present?: No Coding Level of Care Code Acute Code for [facility] Diagnoses Hospice care Z51.5
== END 2024-01-09 14:00 | disposition expired | DRG 322 ==
LOC: ER 13:57 → CSU 14:23 → ICU 01-05 17:37 → MEDSURG 01-09 12:30
PROVIDERS: Family Medicine; Internal Medicine; Admitting Provider Internal Medicine; Emergency Provider Emergency Medicine; Visit Provider Internal Medicine
PROC: 027135Z Dilation of Coronary Artery, Two Arteries with Two Drug-eluting Intraluminal Devices, Percutaneous Approach (ICD-10-PCS; principal; 2024-01-04 14:00)
PROC: 027135Z Dilation of Coronary Artery, Two Arteries with Two Drug-eluting Intraluminal Devices, Percutaneous Approach (ICD-10-PCS; 2024-01-04 14:00)
DX: I21.19 ST elevation (STEMI) myocardial infarction involving other coronary artery of inferior wall (principal); E24.9 Cushing's syndrome, unspecified; N39.0 Urinary tract infection, site not specified; N17.9 Acute kidney failure, unspecified; L97.412 Non-pressure chronic ulcer of right heel and midfoot with fat layer exposed; I25.10 Atherosclerotic heart disease of native coronary artery without angina pectoris; E11.65 Type 2 diabetes mellitus with hyperglycemia; I11.0 Hypertensive heart disease with heart failure; I50.811 Acute right heart failure; Z79.4 Long term (current) use of insulin; Z79.84 Long term (current) use of oral hypoglycemic drugs; Z85.820 Personal history of malignant melanoma of skin; M54.16 Radiculopathy, lumbar region; E78.5 Hyperlipidemia, unspecified; Z87.440 Personal history of urinary (tract) infections; K21.9 Gastro-esophageal reflux disease without esophagitis; E53.8 Deficiency of other specified B group vitamins; G89.29 Other chronic pain; I46.9 Cardiac arrest, cause unspecified; R57.0 Cardiogenic shock; Z66 Do not resuscitate; I95.9 Hypotension, unspecified; T50.8X5A Adverse effect of diagnostic agents, initial encounter; L60.1 Onycholysis; S91.202A Unspecified open wound of left great toe with damage to nail, initial encounter; X58.XXXA Exposure to other specified factors, initial encounter; E11.621 Type 2 diabetes mellitus with foot ulcer; F41.9 Anxiety disorder, unspecified; G47.01 Insomnia due to medical condition; Z51.5 Encounter for palliative care; Z74.01 Bed confinement status
CPT/HCPCS: 36415; 36416; 36573; 36592; 36600; 51702; 71045; 80048; 80053; 82803; 82962; 83605; 83690; 83735; 83880; 84145; 84443; 84484; 85025; 85347; 85610; 85651; 86140; 93005; 93306; 93308; 93454; 96372; 96374; 96375; 96376; 97161; 99152; 99153; 99285; C1725; C1751; C1769; C1874; C1887; C1894; C9113; C9600; C9601; J0696; J1170; J1250; J1265; J1644; J1815; J1940; J2060; J2250; J2270; J2405; J3010; J3490; J7030; J7050; P9046; Q0163; Q9967